=== PATIENT | female | born 1965 | race Caucasian/White ===

== ENCOUNTER 2020-10-04 08:54 | Outpatient (CLI) | payer OTHER, SELFPAY ==
[2020-10-04 09:18] LABS: Basophils Absolute Auto 0.1 K/mm3 (0.0-0.1); Basophils Percent Auto 0.8 % (0.2-1.2); Eosinophils Absolute Auto 0.3 K/mm3 (0-0.3); Eosinophils Percent Auto 3.6 % (0-4.4); Hemoglobin 12.3 g/dL (12.0-15.0); Immature Granulocyte Absolute 0.02 K/mm3 (0.00-0.031); Immature Granulocyte Percent A 0.3 % (0-0.5); Lymphocytes Absolute Auto 2.48 K/mm3 (0.9-3.2); Mean Corpuscular HGB Conc 32.4 g/dl (32-36); Mean Corpuscular Hemoglobin 29.4 pg (26-34); Mean Corpuscular Volume 90.9 fl (80-100); Mean Platelet Volume 11.3 fl (7.4-10.4); Monocytes Absolute Auto 0.6 K/mm3 (0.1-0.6); Monocytes Percent Auto 7.5 % (2.6-8.5); Neutrophils Absolute Auto 4.3 K/mm3 (1.3-6.7); Neutrophils Percent Auto 55.8 % (45.5-73.1); Nucleated Red Blood Cells Perc 0.3 % (0.0-0.2); Platelet Count Result 257 k/mm3 (150-375); Red Blood Count 4.18 M/mm3 (4.2-5.4); Red Cell Distribution Width 13.8 % (11.5-14.5); White Blood Count 7.7 K/mm3 (4.5-10.0)
[2020-10-04 09:25] LABS: Alanine Aminotransferase 29 U/L (4-35); Albumin Level 4.5 g/dL (3.5-5.1); Alkaline Phosphatase 74 U/L (38-126); Anion Gap 13 mmol/L (8-16); Aspartate Amino Transferase 30 U/L (14-36); Bilirubin,Total 0.3 mg/dL (0.2-1.3); Blood Urea Nitrogen 17 mg/dL (7-17); Calcium 9.4 mg/dL (8.4-10.2); Carbon Dioxide 23 mmol/L (22-30); Chloride 107 mmol/L (98-107); Cholesterol 268 mg/dL (0-200); Estimated Glomerular Filt Rate > 60; Glucose 116 mg/dL (65-105); HDL Direct 35 mg/dL; Potassium 4.5 mmol/L (3.4-5.0); Sodium 143 mmol/L (137-145); Triglycerides 459 mg/dL (<150)
[2020-10-04 09:35] LABS: LDL Cholesterol Direct 88 mg/dL
[2020-10-04 10:12] LABS: Vitamin D 25 Hydroxy 20.5 ng/mL
[2020-10-04 11:33] LABS: Hemoglobin A1C 5.8 % (<5.7)
== END 2020-10-04 08:55 | disposition home or self-care (01) ==
LOC: ANHLAB 08:56
PROVIDERS: PCP Internal Medicine; Visit Provider Clinical Nurse Specialist
DX: Z13.220 Encounter for screening for lipoid disorders (principal); E55.9 Vitamin D deficiency, unspecified; E07.9 Disorder of thyroid, unspecified; Z13.228 Encounter for screening for other metabolic disorders; R73.9 Hyperglycemia, unspecified
CPT/HCPCS: 36415; 80053; 80061; 82306; 83036; 84443; 85025

== ENCOUNTER 2020-10-05 08:54 | Outpatient (CLI) | payer OTHER, SELFPAY ==
[2020-10-05 10:31] LABS: Free T4 Free Thyroxine 0.86 ng/mL (0.78-2.19)
[2020-10-08 05:09] LABS: Triiodothyronine T3 Free 2.6 pg/mL (2.3-4.2)
== END 2020-10-05 08:55 | disposition home or self-care (01) ==
PROVIDERS: PCP Internal Medicine; Visit Provider Clinical Nurse Specialist
DX: E07.9 Disorder of thyroid, unspecified (principal)
CPT/HCPCS: 36415; 84439; 84443; 84481

== ENCOUNTER 2021-01-12 01:57 | Day surgery (SDC) | payer OTHER, SELFPAY ==
[2020-12-28 14:44] VITALS: BMI 36.3
[2021-01-12 06:50] VITALS: BP 149/100; PULSE 114; RESP 18; TEMP 36.7; O2SAT 93
[2021-01-12] MEDS: LACTATED RINGERS 1,000 ML 150 ML IV CONT (07:04)
--- NOTE | 2021-01-12 07:48 | WPDANESEPPF ---
Anes - Initial Pre Proc Eval Procedure: Operation Date: 01/12/21 08:00 Proposed Procedures p Screening Colonoscopy - Yrn Hernandez MD Date/Time: 01/12/21 07:48 Surgeon: Yrn Hernandez MD Pre Op Diagnosis: hx of colon polyps Z86.010 Patient Data Age: 55 Gender: F Height: 1.57 m Weight: 91 kg Last Vital Signs Temp 98.1 F 01/12/21 06:50 Pulse 114 H 01/12/21 06:50 Resp 18 01/12/21 06:50 BP 149/100 H 01/12/21 06:50 Pulse Ox 93 01/12/21 06:50 Allergies Allergy/AdvReac Type Severity Reaction Status Date / Time No Known Allergies Allergy Unverified 01/12/21 06:49 Home Medications Medication Instructions Recorded Confirmed Type gabapentin 600 mg tablet 600 mg PO TID 09/26/20 01/12/21 History propranolol 20 mg tablet 20 mg PO DAILY PRN #30 tablet 09/26/20 01/12/21 Rx buspirone 7.5 mg PO TID 12/28/20 01/12/21 History cariprazine [Vraylar] 1.5 mg PO DAILY 12/28/20 01/12/21 History sertraline 150 mg PO DAILY 12/28/20 01/12/21 History levothyroxine 25 mcg tablet 25 mcg PO DAILY #90 tablet 01/08/21 01/12/21 Rx Patient hx anesthesia problems: none Family hx anesthesia problems: none PMFSH Past Medical History Medical History Allergies Anxiety Depression Sleep apnea Thyroid disorder Surgical History Surgical History H/O section 1979 H/O shoulder surgery Left and Right 2018 H/O sinus surgery 2015 Family History Family History Mother Lung cancer COPD (chronic obstructive pulmonary disease) Father Suicide Grandparent Cerebrovascular accident Social History Social History Smoking status: Never smoker Alcohol intake: current Drinks per week: 3 Living arrangements: alone Spiritual care concerns: No Anes - Eval Final PreProcedure Day of Procedure 01/12/21 07:48 Patient weight: obese Heart: regular rate and rhythm Lungs: clear to auscultation Airway: Mallampati scale class II Neurological: alert and oriented Last oral intake: >/= 8 hours ASA classification: III Emergent: no Anesthetic plan: proceed Anesthesia type and monitoring: general GIVS and standard monitoring Informed Consent: The patient's anesthetic plan and its attendant risks and benefits were discussed with the patient/family/POA. Questions were solicited and answers provided to the satisfaction of the patient/family/POA.
--- NOTE | 2021-01-12 08:00 | PM.HPGS ---
History of Present Illness History of Present Illness Consent: Risks, benefits, and alternatives have been discussed and questions answered. Patient agrees to proceed with procedure. Chief complaint: hx of colon polyps Z86.010 Narrative: Kori Kent is a 55 year old female with colon polyp 5 years ago. Review of Systems Constitutional: Constitutional: Denies headache(s) and Denies weakness Eyes: Eyes: Denies blurry vision ENT: Reports Normal hearing present, Denies headache(s) and Denies neck pain Cardiovascular: Cardiovascular: Denies chest pain and Denies dyspnea Respiratory: Respiratory: Denies dyspnea Gastrointestinal: Gastrointestinal: Reports no additional gastrointestinal complaints Genitourinary: Genitourinary: Denies dysuria Musculoskeletal: Musculoskeletal: Denies neck pain Integumentary/Breasts: Skin/Breast: Denies dry skin Neurologic: Reports Normal hearing present, Denies headache(s) and Denies weakness Psychiatric: Psychiatric: Denies anxiety Endocrine: Endocrine: Denies change in body appearance Hematologic/Lymphatic: Hematologic/Lymphatic: Denies easy bleeding Allergic/Immunologic: Allergic/Immunologic: Denies urticaria PMFSH Past Medical History Medical History Allergies Anxiety Depression Sleep apnea Thyroid disorder Surgical History Surgical History H/O section 1979 H/O shoulder surgery Left and Right 2018 H/O sinus surgery 2016 Family History Family History Mother Lung cancer COPD (chronic obstructive pulmonary disease) Father Suicide Grandparent Cerebrovascular accident Social History Social History Smoking status: Never smoker Alcohol intake: current Drinks per week: 3 Living arrangements: alone Spiritual care concerns: No Meds Home Medications and Allergies Home Medications Medication Instructions Recorded Confirmed Type gabapentin 600 mg tablet 600 mg PO TID 09/26/20 01/12/21 History propranolol 20 mg tablet 20 mg PO DAILY PRN #30 tablet 09/26/20 01/12/21 Rx buspirone 7.5 mg PO TID 12/28/20 01/12/21 History cariprazine [Vraylar] 1.5 mg PO DAILY 12/28/20 01/12/21 History sertraline 150 mg PO DAILY 12/28/20 01/12/21 History levothyroxine 25 mcg tablet 25 mcg PO DAILY #90 tablet 01/08/21 01/12/21 Rx Allergies Allergy/AdvReac Type Severity Reaction Status Date / Time No Known Allergies Allergy Unverified 01/12/21 06:49 Vital Signs Vital Signs - 24 hr 01/12/21 06:50 Temperature 98.1 F Pulse Rate 114 H Respiratory Rate 18 Blood Pressure 149/100 H Pulse Oximetry 93 Exam Const: General: comfortable and no acute distress HENMT: General nose exam: Normal nares present Eyes: General: appearance normal, both eyes and all related structures Neck: Neck: no JVD Resp: Auscultation: clear to auscultation bilaterally Cardio: Rate: regular rate Rhythm: regular rhythm GI: Inspection: non-distended GI Palp: Yes Soft to palpation Skin: General skin exam: normal color Neuro: General: gait normal Speech: normal speech Extrem: General: normal to inspection Psych: Mental Status: mental status grossly normal Assessment and Plan Assessment and plan (1) Screening for colon cancer: Code(s): Z12.11 - Encounter for screening for malignant neoplasm of colon Status: Acute Assessment and Plan: colonoscopy
[2021-01-12 08:30] VITALS: BP 125/82; PULSE 106; RESP 21; O2SAT 96
[2021-01-12 08:40] VITALS: BP 126/85; PULSE 98; RESP 16; O2SAT 99
[2021-01-12 08:50] VITALS: BP 135/89; PULSE 93; RESP 26; O2SAT 99
== END 2021-01-12 09:00 | disposition home or self-care (01) ==
PROVIDERS: PCP Internal Medicine; Visit Provider Internal Medicine Gastroenterology
PROC: 0DJD8ZZ Inspection of Lower Intestinal Tract, Via Natural or Artificial Opening Endoscopic (ICD-10-PCS; CPT 45378; principal; 2021-01-12 08:00)
DX: Z12.11 Encounter for screening for malignant neoplasm of colon (principal); D12.0 Benign neoplasm of cecum; D12.2 Benign neoplasm of ascending colon; D12.3 Benign neoplasm of transverse colon; G47.30 Sleep apnea, unspecified; E07.9 Disorder of thyroid, unspecified; F41.8 Other specified anxiety disorders; E66.9 Obesity, unspecified; Z68.36 Body mass index [BMI] 36.0-36.9, adult
CPT/HCPCS: 45380; 45385; 88305; J2704; J7120

== ENCOUNTER 2021-08-13 07:39 | Outpatient (CLI) | payer OTHER, SELFPAY ==
[2021-08-13 09:57] LABS: Free T4 Free Thyroxine 1.01 ng/mL (0.78-2.19)
[2021-08-16 15:01] LABS: Triiodothyronine T3 Free 2.9 pg/mL (2.3-4.2)
== END 2021-08-13 07:40 | disposition home or self-care (01) ==
LOC: ANHLAB 07:41
PROVIDERS: PCP Internal Medicine; Visit Provider Clinical Nurse Specialist
DX: E03.9 Hypothyroidism, unspecified (principal)
CPT/HCPCS: 36415; 84439; 84443; 84481

== ENCOUNTER 2021-11-07 07:28 | Outpatient (CLI) | payer OTHER, SELFPAY ==
[2021-11-07 08:10] LABS: Alanine Aminotransferase 89 U/L (6-35); Albumin Level 4.7 g/dL (3.5-5.1); Alkaline Phosphatase 89 U/L (38-126); Anion Gap 6 mmol/L (8-16); Aspartate Amino Transferase 44 U/L (14-36); Bilirubin,Total 0.1 mg/dL (0.2-1.3); Blood Urea Nitrogen 16 mg/dL (7-17); Carbon Dioxide 27 mmol/L (22-30); Chloride 108 mmol/L (98-107); Cholesterol 234 mg/dL (0-200); Estimated Glomerular Filt Rate > 60; Glucose 132 mg/dL (65-110); HDL Direct 34 mg/dL; Potassium 4.3 mmol/L (3.4-5.0); Sodium 141 mmol/L (137-145); Triglycerides 213 mg/dL (<150)
[2021-11-07 08:22] LABS: LDL Cholesterol Direct 116 mg/dL
[2021-11-07 08:36] LABS: Basophils Absolute Auto 0.1 K/mm3 (0.0-0.1); Basophils Percent Auto 0.8 % (0.2-1.2); Eosinophils Absolute Auto 0.2 K/mm3 (0-0.3); Eosinophils Percent Auto 2.3 % (0-4.4); Hemoglobin 12.9 g/dL (12.0-15.0); Immature Granulocyte Absolute 0.02 K/mm3 (0.00-0.031); Immature Granulocyte Percent A 0.3 % (0-0.5); Lymphocytes Absolute Auto 2.91 K/mm3 (0.9-3.2); Lymphocytes Percent Auto 39.6 % (18.3-44.2); Mean Corpuscular HGB Conc 31.5 g/dl (32-36); Mean Corpuscular Hemoglobin 29.4 pg (26-34); Mean Corpuscular Volume 93.4 fl (80-100); Mean Platelet Volume 12.8 fl (7.4-10.4); Monocytes Absolute Auto 0.4 K/mm3 (0.1-0.6); Monocytes Percent Auto 5.9 % (2.6-8.5); Neutrophils Absolute Auto 3.8 K/mm3 (1.3-6.7); Neutrophils Percent Auto 51.1 % (45.5-73.1); Platelet Count Result 246 k/mm3 (150-375); Red Blood Count 4.39 M/mm3 (4.2-5.4); Red Cell Distribution Width 14.6 % (11.5-14.5); White Blood Count 7.3 K/mm3 (4.5-10.0)
[2021-11-07 09:40] LABS: Vitamin D 25 Hydroxy 40.8 ng/mL
== END 2021-11-07 07:29 | disposition home or self-care (01) ==
LOC: ANHLAB 07:30
PROVIDERS: PCP Internal Medicine; Visit Provider Clinical Nurse Specialist
DX: E55.9 Vitamin D deficiency, unspecified (principal); E03.9 Hypothyroidism, unspecified; E78.1 Pure hyperglyceridemia
CPT/HCPCS: 36415; 80053; 80061; 82306; 84443; 85025

== ENCOUNTER 2022-07-19 08:48 | Emergency (ER) | payer OTHER, SELFPAY ==
--- NOTE | 2022-07-19 08:56 | ED.NAVMDI ---
HPI - Nausea/Vomiting/Diarrhea General Chief complaint: Nausea/Vomiting/Diarrhea Stated complaint: dizziness, nausea, vomit Time Seen by Provider: 07/19/22 08:56 Source: patient Mode of arrival: ambulatory Limitations: no limitations History of Present Illness HPI Narrative: 56 yo F presents with c/o dizziness, ears ringings, nausea for 4 days. Has vomited one time. Was not able to get in to see her PCP. No ear pain or change in hearing. No vision changes. Denies CP/SOB. No recent injuries. Ambulatory with steady gait. Dizziness mild when sitting, worse when ambulatory. All systems reviewed and negative except as noted above. Related Data Home Medications Medication Instructions Recorded Confirmed buspirone 7.5 mg tablet 7.5 mg PO TID 12/28/20 07/19/22 sertraline 100 mg tablet 150 mg PO DAILY 12/28/20 07/19/22 cariprazine 1.5 mg capsule 3 mg PO DAILY 08/14/21 07/19/22 (Vraylar) cholecalciferol (vitamin D3) 50 2,000 unit PO DAILY 08/14/21 07/19/22 mcg (2,000 unit) capsule omega-3 fatty acids 500 mg capsule 500 mg PO DAILY 08/14/21 07/19/22 dextroamphetamine-amphetamine 10 10 mg PO DAILY 07/19/22 07/19/22 mg tablet dextroamphetamine-amphetamine ER 20 mg PO DAILY 07/19/22 07/19/22 20 mg 24hr capsule,extend release rndxgchy-vqlodoh-ejvw-iron 18 1 tablet PO DAILY 07/19/22 07/19/22 mg-FA 400 mcg-vit K 25 mcg tablet (One-A-Day Women's Complete) Allergies Allergy/AdvReac Type Severity Reaction Status Date / Time No Known Allergies Allergy Verified 07/19/22 08:53 Review of Systems Review of Systems: CONSTITUTIONAL: Denies fever, chills, or sweats. EYES: Denies visual changes, redness, or discharge. ENT: Denies rhinorrhea, congestion, sore throat, or otalgia. Reports ears ringing. CARDIOVASCULAR: Denies chest pain, palpitations, or edema. RESPIRATORY: Denies cough or dyspnea. GASTROINTESTINAL: Denies abdominal pain . Reports nausea, vomiting. Denies diarrhea. GENITOURINARY: Denies dysuria or hematuria. SKIN: Denies rash or itching. MUSCULOSKELETAL: Denies back pain, joint pain, or myalgia. NEUROLOGIC: Denies headache, numbness, or weakness. Reports dizziness. PSYCHIATRIC: Denies anxiety or depression. All other systems reviewed are negative, except as documented in HPI. [facility] Past Medical History Medical History (Updated 07/20/22 @ 00:01 by Bryant Busch) Allergies Anxiety Depression Sleep apnea Thyroid disorder Surgical History Surgical History H/O section 1979 H/O shoulder surgery Left and Right 2018 H/O sinus surgery 2015 Family History Family History Mother Lung cancer COPD (chronic obstructive pulmonary disease) Father Suicide Grandparent Cerebrovascular accident Social History Social History (Updated 10/16/21 @ 10:17 by Dora Clark MA) Smoking status: Never smoker Alcohol intake: current Drinks per week: 3 Substance use: never Living arrangements: alone Spiritual care concerns: No Comments At time of signature, agree with nursing past medical, surgical, social and family history. There is no relevant family history pertinent to the presenting complaint. Exam Narrative: GENERAL: This is a well-nourished, well-developed patient, in no apparent distress. HEAD: normocephalic, atraumatic. EYES: PERRL. Sclera clear/white. Vision is grossly intact. EARS: External ears normal, right ear canal impacted with cerumen. Irrigated with warm water. Normal after irrigation. Left ear canal is normal. fluid to bilateral TMs without erythema or perforation. NOSE: External nose normal with no obvious nasal discharge, nares without redness, no rhinorrhea. THROAT: Mucous membranes moist, posterior pharynx clear. NECK: Neck supple, non-tender without lymphadenopathy, masses or thyromegaly. CARDIOVASCULAR: Regular rate and rhythm without murmurs,
[2022-07-19 09:00] VITALS: BP 143/79; PULSE 60; RESP 12; TEMP 36.6; O2SAT 100
== END 2022-07-19 09:35 | disposition home or self-care (01) ==
PROVIDERS: Emergency Provider Nurse Practitioner Family; PCP Internal Medicine
DX: H61.21 Impacted cerumen, right ear (principal); H69.93 Unspecified Eustachian tube disorder, bilateral; F41.9 Anxiety disorder, unspecified; F32.A Depression, unspecified
CPT/HCPCS: 69209; 99213; G0463

== ENCOUNTER 2022-07-26 08:19 | Outpatient (CLI) | payer OTHER, SELFPAY ==
[2022-07-26 09:28] LABS: Basophils Absolute Auto 0.1 K/mm3 (0.0-0.1); Eosinophils Absolute Auto 0.2 K/mm3 (0-0.3); Eosinophils Percent Auto 2.7 % (0-4.4); Hematocrit 42.2 % (37.0-47.0); Hemoglobin 13.5 g/dL (12.0-15.0); Immature Granulocyte Absolute 0.02 K/mm3 (0.00-0.031); Immature Granulocyte Percent A 0.3 % (0-0.5); Immature Platelet Fraction Pct 14.2 % (0.9-11.2); Lymphocytes Absolute Auto 3.34 K/mm3 (0.9-3.2); Lymphocytes Percent Auto 42.8 % (18.3-44.2); Mean Corpuscular Hemoglobin 30.5 pg (26-34); Mean Corpuscular Volume 95.3 fl (80-100); Monocytes Absolute Auto 0.5 K/mm3 (0.1-0.6); Monocytes Percent Auto 6.1 % (2.6-8.5); Neutrophils Absolute Auto 3.7 K/mm3 (1.3-6.7); Neutrophils Percent Auto 47.1 % (45.5-73.1); Red Blood Count 4.43 M/mm3 (4.2-5.4); Red Cell Distribution Width 13.2 % (11.5-14.5); White Blood Count 7.8 K/mm3 (4.5-10.0)
[2022-07-26 09:52] LABS: LDL Cholesterol Direct 101 mg/dL
[2022-07-26 09:54] LABS: Alanine Aminotransferase 32 U/L (6-35); Albumin Level 4.9 g/dL (3.5-5.1); Alkaline Phosphatase 89 U/L (38-126); Anion Gap 12 mmol/L (8-16); Aspartate Amino Transferase 26 U/L (14-36); Bilirubin,Total 0.5 mg/dL (0.2-1.3); Blood Urea Nitrogen 15 mg/dL (7-17); Calcium 9.6 mg/dL (8.4-10.2); Carbon Dioxide 26 mmol/L (22-30); Chloride 106 mmol/L (98-107); Estimated Glomerular Filt Rate > 60; Glucose 98 mg/dL (65-110); HDL Direct 38 mg/dL; Potassium 4.5 mmol/L (3.4-5.0); Sodium 144 mmol/L (137-145)
[2022-07-26 10:39] LABS: Vitamin D 25 Hydroxy 40.1 ng/mL
[2022-07-26 10:59] LABS: Cholesterol 346 mg/dL (0-200); Triglycerides 653 mg/dL (<150)
[2022-07-26 12:13] LABS: Hemoglobin A1C 5.3 % (<5.7)
[2022-07-26 15:37] LABS: Free T4 Free Thyroxine Reflex 0.81 ng/dL (0.78-2.19)
[2022-07-26 16:53] LABS: Total Triiodothyronine (T3) 1.28 NG/ML (0.97-1.69)
== END 2022-07-26 08:20 | disposition home or self-care (01) ==
PROVIDERS: PCP Internal Medicine; Visit Provider Clinical Nurse Specialist
DX: E03.9 Hypothyroidism, unspecified (principal); R73.9 Hyperglycemia, unspecified; E55.9 Vitamin D deficiency, unspecified; E78.1 Pure hyperglyceridemia
CPT/HCPCS: 36415; 80053; 80061; 82306; 83036; 84439; 84443; 84480; 85025; 85055

== ENCOUNTER 2022-08-09 07:40 | Outpatient (CLI) | payer OTHER, SELFPAY ==
--- NOTE | ~2022-08-09 | MR_ITS ---
MRI of the brain Clinical History: Headache, dizziness Technique: Axial and sagittal T1-weighted images were acquired. These were followed by axial T2-weigh choco, diffusion weighted, gradient, and FLAIR images. Following intravenous administration of 16 cc Mu ltiHance gadolinium, T1-weighted fat-sat imaging was performed in the axial and coronal planes. Findings: There is no acute infarct, intracranial hemorrhage, or mass lesion. There are scattered foc al hyperintense FLAIR white matter lesions bilaterally. Ventricles and subarachnoid spaces are unremarkable. Orbits are unremarkable. There is mild left fron marley sinus disease and bilateral ethmoid sinus disease. Remaining paranasal sinuses and mastoid air ce lls are clear. Major intracranial flow voids are intact. Sagittal midline structures are intact. No abnormal postcontrast enhancement identified. IMPRESSION: Probable mild chronic microvascular ischemic change. Correlate for any possibility of demyelinating d isease. Mild sinus disease, as above. Reviewed, dictated and finalized at [facility]. IMPRESSION: Probable mild chronic microvascular ischemic change. Correlate for any possibil ity of demyelinating disease. Mild sinus disease, as above.
== END 2022-08-09 07:41 | disposition home or self-care (01) ==
LOC: ANHIMG 07:41
PROVIDERS: PCP Internal Medicine; Visit Provider Clinical Nurse Specialist
DX: R42 Dizziness and giddiness (principal); R51.9 Headache, unspecified; J32.9 Chronic sinusitis, unspecified
CPT/HCPCS: 70553; A9577

== ENCOUNTER → 2022-10-08 11:20 | Outpatient (CLI) | payer OTHER, SELFPAY ==
--- NOTE | ~2022-10-08 | XR_ITS ---
EXAMINATION: XR chest 2V 10/08/2022 11:46 INDICATION: Cough, shortness of breath and fever PROCEDURE: 2 view chest COMPARISON: No prior studies for comparison. FINDINGS: The lungs are clear. The cardiomediastinal silhouette is within normal limits. There are no pleural effusions. There is no pneumothorax suspected. IMPRESSION: 1: NO ACUTE CARDIOPULMONARY DISEASE. Reviewed, dictated and finalized at location [facility].
== END ==
PROVIDERS: PCP Internal Medicine; Visit Provider Clinical Nurse Specialist
DX: R05.9 Cough, unspecified (principal); R06.02 Shortness of breath; R50.9 Fever, unspecified
CPT/HCPCS: 71046

== ENCOUNTER 2022-12-04 09:26 | Outpatient (CLI) | payer OTHER, SELFPAY ==
[2022-12-04 18:54] LABS: Anion Gap 11 mmol/L (8-16); Blood Urea Nitrogen 16 mg/dL (7-17); Calcium 9.4 mg/dL (8.4-10.2); Carbon Dioxide 24 mmol/L (22-30); Chloride 107 mmol/L (98-107); Cholesterol 280 mg/dL (0-200); Estimated Glomerular Filt Rate > 60; Glucose 106 mg/dL (65-110); HDL Direct 31 mg/dL; Potassium 4.8 mmol/L (3.4-5.0); Sodium 142 mmol/L (137-145); Triglycerides 515 mg/dL (<150)
[2022-12-04 19:00] LABS: Free T4 Free Thyroxine 1.43 ng/mL (0.78-2.19)
[2022-12-04 19:04] LABS: LDL Cholesterol Direct 101 mg/dL
[2022-12-04 19:27] LABS: Thyroid Stimulating Hormone 0.913 uIU/mL (0.465-4.680)
== END 2022-12-04 09:27 | disposition home or self-care (01) ==
PROVIDERS: PCP Internal Medicine; Visit Provider Clinical Nurse Specialist
DX: R73.9 Hyperglycemia, unspecified (principal); E78.1 Pure hyperglyceridemia; E07.9 Disorder of thyroid, unspecified
CPT/HCPCS: 36415; 80048; 80061; 84439; 84443

== ENCOUNTER 2023-01-23 09:23 | Outpatient (CLI) | payer OTHER, SELFPAY ==
--- NOTE | 2023-02-09 19:28 | WPDHOMESLEEP ---
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 She has anxiety, depression, thyroid dysfunction, ADHD, and elevated triglycerides. She had a sleep study in 2011, used CPAP for a while, then stopped using it. She has a family history of sleep disordered in her cousins, aunts and uncles. She occasionally awakens from sleep short of breath. She frequently wakes at night with heartburn, belching or coughing.??She constantly snores, constantly snores loudly enough that others complain. She frequently has trouble sleeping when she has a cold. She rarely wakes up gasping for breath during the night. She rarely has breathing problems at night. She frequently sweats excessively at night. She rarely notices her heart pounding or beating irregularly during the night. She occasionally falls asleep during the day. She occasionally falls asleep involuntarily, never falls asleep while driving. She never experiences loss of muscle tone with strong emotion. She never feels paralyzed on waking or falling asleep. She rarely experiences vivid dreams upon waking or falling asleep. She never feels afraid of going to sleep. She rarely has nightmares. She occasionally recalls her dreams. She frequently has thoughts racing through her mind. She frequently feels sad or depressed. She constantly feels anxiety. She frequently has muscle tension. She rarely notices parts of her body jerking or kicking. She never feels crawling or aching feelings in her legs. She never feels leg pain at night. She never has morning jaw pain, and never grinds her teeth at night. She occasionally feels bothered by pain during the day, never awakened by pain during the night. She frequently wakes up feeling stiff in the morning, frequently wakes feeling sore or achy in the morning. She occasionally awakens with pain in her neck, spine, or joints. She occasioanlly has daytime difficulty due to excessive sleepiness. She has memory problems, headaches, concewntration difficulties and she takes antacids regularly. Normal bedtime is 9:00 p.m., falling asleep within 5-10 minutes. She reports getting 6-7 hours of sleep per night. Her wake time is 5:10 a.m.She wakes 5 times during the night. In general, she does not take naps. Sometimes she feels refreshed after a short nap. She is drowsy for 3 hours after waking. She feels better in the afternoon compared to other times of day. Habits:??Tobacco:never Caffeine:2 cups of tea daily. Alcohol:a couple of glasses of wine every couple of weeks. Recreational substances: none PMFSH Past Medical History Medical History (Updated 02/09/23 @ 20:03 by Nesha Mullins MD) Abnormal brain MRI Allergies Anxiety BPPV (benign paroxysmal positional vertigo) Depression Hyperglycemia Impacted cerumen, right ear Migraine Mild acid reflux Nausea Obstructive sleep apnea Screening for breast cancer Screening for colon cancer Screening for lipoid disorders Screening for metabolic disorder Sleep apnea Thyroid disorder Vitamin D deficiency Wheezing Worsening headaches Surgical History Surgical History H/O section 1979 H/O shoulder surgery Left and Right 2018 H/O sinus surgery 2016 Family History Family History Mother Lung cancer COPD (chronic obstructive pulmonary disease) Father Suicide Grandparent Cerebrovascular accident Social History Social History Smoking status: Never smoker Alcohol intak
[2023-02-09 19:32] VITALS: BMI 36.6
== END 2023-01-24 12:20 | disposition home or self-care (01) ==
LOC: ANHCSM 09:24
PROVIDERS: PCP Internal Medicine; Visit Provider Clinical Nurse Specialist
DX: G47.33 Obstructive sleep apnea (adult) (pediatric) (principal); G47.10 Hypersomnia, unspecified; E66.9 Obesity, unspecified; Z68.36 Body mass index [BMI] 36.0-36.9, adult
CPT/HCPCS: 95800

== ENCOUNTER 2023-08-13 08:44 | Emergency (ER) | payer OTHER, SELFPAY ==
[2023-08-13 08:56] VITALS: BP 103/62; PULSE 109; RESP 20; TEMP 36.4; O2SAT 97
--- NOTE | 2023-08-13 09:14 | ED.ABDPAIN ---
HPI - Abdominal Pain General Chief Complaint: Abdominal Pain Stated Complaint: Abdominal Pain Time Seen by Provider: 08/13/23 08:59 Source: patient Mode of arrival: ambulatory Limitations: no limitations History of Present Illness HPI narrative: Patient presents today complaining of right lower quadrant abdominal pain since yesterday with sweats that started this morning. Denies any additional symptoms to include fever, nausea, vomiting, diarrhea, urinary symptoms. Currently rates her pain 9/10 and took some ibuprofen this morning without relief. Related Data Home Medications Medication Instructions Recorded Confirmed buspirone 7.5 mg tablet 7.5 mg PO TID 12/28/20 08/13/23 sertraline 100 mg tablet 150 mg PO DAILY 12/28/20 08/13/23 cariprazine 1.5 mg capsule 3 mg PO DAILY 08/14/21 08/13/23 (Vraylar) dextroamphetamine-amphetamine 10 10 mg PO DAILY 07/19/22 08/13/23 mg tablet dextroamphetamine-amphetamine ER 20 mg PO DAILY 07/19/22 08/13/23 20 mg 24hr capsule,extend release xrasdddi-jwiwzai-pjlf-iron 18 1 tablet PO DAILY 07/19/22 08/13/23 mg-FA 400 mcg-vit K 25 mcg tablet (One-A-Day Women's Complete(with vit K)) omega-3 fatty acids 500 mg capsule 1,000 mg PO DAILY 07/26/22 08/13/23 Allergies Allergy/AdvReac Type Severity Reaction Status Date / Time No Known Allergies Allergy Verified 08/13/23 08:47 Review of Systems Review of Systems: CONSTITUTIONAL: Denies body aches, fever, chills.+ sweats EYES: Denies visual changes, redness, or discharge. ENT: Denies rhinorrhea, congestion, sore throat, or otalgia. CARDIOVASCULAR: Denies chest pain, palpitations, or edema. RESPIRATORY: Denies cough or dyspnea. GASTROINTESTINAL: Denies nausea, vomiting, or diarrhea.+ abdominal pain GENITOURINARY: Denies dysuria or hematuria. SKIN: Denies rash, itching, or wounds. MUSCULOSKELETAL: Denies back pain, joint pain, or myalgia. NEUROLOGIC: Denies headache, numbness, tingling, or weakness. PSYCH: Denies depression or anxiety. [facility] Past Medical History Medical History Abnormal brain MRI Allergies Anxiety BPPV (benign paroxysmal positional vertigo) Depression Hyperglycemia Impacted cerumen, right ear Migraine Mild acid reflux Nausea Obstructive sleep apnea Screening for breast cancer Screening for colon cancer Screening for lipoid disorders Screening for metabolic disorder Sleep apnea Thyroid disorder Vitamin D deficiency Wheezing Worsening headaches Surgical History Surgical History H/O section 1979 H/O shoulder surgery Left and Right 2018 H/O sinus surgery 2016 Family History Family History Mother Lung cancer COPD (chronic obstructive pulmonary disease) Father Suicide Grandparent Cerebrovascular accident Social History Social History Smoking status: Never smoker Alcohol intake: current Alcohol use details: Rarely Substance use: never Do You Feel Safe in your Home?: Yes Lack of Transportation: No Lack of Food: Never True Current Housing: I Have Housing Concerned About Future Housing: No Difficulty Paying Gas/Electric Bills: No Difficulty Paying for Meds: No Currently Unemployed: No Education: Bachelor's Degree Difficulty w/ Childcare or Family Care: No Living arrangements: alone Spiritual care concerns: No Comments At time of signature, I have reviewed and agree with nursing past medical, surgical, social and family history unless otherwise noted. Please see nursing chart for further information. There is no relevant family history pertinent to the presenting complaint Exam Narrative: GENERAL: Well-appearing, well-nourished, and in no acute distress. +diaphoretic HEAD: Normocephalic, at
== END 2023-08-13 09:15 | disposition short-term general hospital (02) ==
PROVIDERS: Emergency Provider Nurse Practitioner; PCP Internal Medicine
DX: R10.31 Right lower quadrant pain (principal); F41.9 Anxiety disorder, unspecified; F32.A Depression, unspecified; K21.9 Gastro-esophageal reflux disease without esophagitis
CPT/HCPCS: 99212; G0463

== ENCOUNTER 2023-08-13 09:27 | Inpatient (IN) | payer OTHER, SELFPAY ==
[2023-08-13] VITALS (14 sets, daily range): BP systolic 96–129; BP diastolic 42–77; PULSE 93–115; RESP 14–20; TEMP 36.1–37.1; O2SAT 93–99; BMI 39.6
--- NOTE | ~2023-08-13 | CT_ITS ---
EXAMINATION: CT abdomen pelvis w con DATE: 08/13/2023 10:46 INDICATION: Right lower quadrant abdominal pain TECHNIQUE: Computed tomography (CT) of the abdomen and pelvis was performed with 100 mL Omnipaque-350 intravenous contrast. Automated exposure control and iterative reconstruction technique were employe d. The dose-length product was 1218.09 mGy-cm. COMPARISON: None FINDINGS: Mild dependent atelectasis in the bilateral lower lobes. Heart size is normal. No pericardial or pleu ral effusion. Diffuse hepatic steatosis with focal sparing along the gallbladder fossa. Gallbladder, spleen, pancreas, bilateral adrenal glands and kidneys are normal. There is mild dilation of the wall thickening of the appendix distal to a couple likely obstructing calcified appendicoliths at the pro ximal appendix. There is prominent surrounding inflammatory stranding consistent with acute appendici tis. There is a small amount of ascites scattered throughout the pelvis. No abscess or free intraperi toneal gas. Bowels are otherwise unremarkable. Bladder and bilateral adnexa are unremarkable. Thicken ed heterogeneous appearing endometrial complex. Tiny fat-containing umbilical hernia. No pathological ly enlarged abdominal or pelvic lymphadenopathy. Mild lumbar levocurvature. Mild degenerative skeleta l changes in the spine and pelvis. IMPRESSION: 1. Acute appendicitis with small amount of free fluid in the pelvis but no organized abscess or free intraperitoneal gas to more specifically suggest perforation. Dr. Eddy discussed these findings w ith Dr. Gleason at 10:52 AM. 2. Nonspecific thickened and heterogeneous endometrial complex. Recommend follow-up pelvic ultrasound for further evaluation. 3. Diffuse hepatic steatosis. Reviewed, dictated and finalized at location A. IMPRESSION: 1. Acute appendicitis with small amount of free fluid in the pelvis but no orga nized abscess or free intraperitoneal gas to more specifically suggest perforat ion. Dr. Eddy discussed these findings with Dr. Gleason at 10:52 AM. 2. Nonspecific thickened and heterogeneous endometrial complex. Recommend follo w-up pelvic ultrasound for further evaluation. 3. Diffuse hepatic steatosis.
--- NOTE | 2023-08-13 09:40 | ED.ABDPAIN ---
HPI - Abdominal Pain General Chief Complaint: Abdominal Pain Stated Complaint: abd pain Time Seen by Provider: 08/13/23 09:31 History of Present Illness HPI narrative: 57-year-old female presenting to the emergency department for evaluation of right lower quadrant pain. Patient states that symptoms started yesterday and have persisted. Patient reports she woke up in the morning yesterday with an upset stomach and than yesterday evening she began developing more intense pain. Patient describes right lower quadrant pain along with upper abdominal pain with associated nausea. Patient denies any prior history of ovarian cysts or kidney stones. Patient does have a prior history of a hysteroscopy. Patient initially presented to the urgent care and was referred to the emergency department for further workup. Patient reports prior history of and hysteroscopy. Patient denies any other abdominal surgeries. Patient denies any prior history of [place], patient does not take medications for high blood pressure or high cholesterol. Related Data Home Medications Medication Instructions Recorded Confirmed buspirone 7.5 mg tablet 7.5 mg PO TID 12/28/20 08/13/23 sertraline 100 mg tablet 150 mg PO DAILY 12/28/20 08/13/23 cariprazine 1.5 mg capsule 3 mg PO DAILY 08/14/21 08/13/23 (Vraylar) dextroamphetamine-amphetamine 10 10 mg PO DAILY 07/19/22 08/13/23 mg tablet dextroamphetamine-amphetamine ER 20 mg PO DAILY 07/19/22 08/13/23 20 mg 24hr capsule,extend release ervdmemz-zlnywad-pihh-iron 18 1 tablet PO DAILY 07/19/22 08/13/23 mg-FA 400 mcg-vit K 25 mcg tablet (One-A-Day Women's Complete(with vit K)) omega-3 fatty acids 500 mg capsule 1,000 mg PO DAILY 07/26/22 08/13/23 Allergies Allergy/AdvReac Type Severity Reaction Status Date / Time No Known Allergies Allergy Verified 08/13/23 13:59 Review of Systems Review of Systems: All systems reviewed & are unremarkable except as noted in HPI and below PMFSH Past Medical History Medical History Abnormal brain MRI Allergies Anxiety BPPV (benign paroxysmal positional vertigo) Depression Hyperglycemia Impacted cerumen, right ear Migraine Mild acid reflux Nausea Obstructive sleep apnea Screening for breast cancer Screening for colon cancer Screening for lipoid disorders Screening for metabolic disorder Sleep apnea Thyroid disorder Vitamin D deficiency Wheezing Worsening headaches Surgical History Surgical History H/O section 1979 H/O shoulder surgery Left and Right 2018 H/O sinus surgery 2015 History of colonoscopy with polypectomy 2020 History of hysteroscopy Family History Family History Mother Lung cancer COPD (chronic obstructive pulmonary disease) Father Suicide Grandparent Cerebrovascular accident Social History Social History Smoking status: Never smoker Alcohol intake: current Alcohol use details: Rarely Substance use: never Do You Feel Safe in your Home?: Yes Lack of Transportation: No Lack of Food: Never True Current Housing: I Have Housing Concerned About Future Housing: No Difficulty Paying Gas/Electric Bills: No Difficulty Paying for Meds: No Currently Unemployed: No Education: Bachelor's Degree Difficulty w/ Childcare or Family Care: No Living arrangements: alone Spiritual care concerns: No Exam Narrative: APPEARANCE: Uncomfortable appearing HEAD: normocephalic, atraumatic. EYES: PERRLA/EOMI, conjunctivae clear. NOSE: Normal no drainage EARS:TMS clear with good light reflex. THROAT: Pharynx clear, no exudate. NECK: Supple. No adenopathy, no masses. RESPIRATORY: Airway patent, respirations nonlabored. Clear to auscultation bilaterally, no rales, rhonchi, wheezing
[2023-08-13] MEDS: SODIUM CHLORIDE 0.9% IV 1,000 ML 999 ML IV CONT ×2 (09:53→10:57)
[2023-08-13] MEDS: ONDANSETRON INJ 4 MG/2 ML VIAL IV PUSH (09:53)
[2023-08-13] MEDS: HYDROmorphone HCL INJ (*CRX) 1 MG/ML SYR IV PUSH ×2 (09:53→16:09)
[2023-08-13 09:55] LABS: Basophils Absolute Auto 0.1 K/mm3 (0.0-0.1); Basophils Percent Auto 0.4 % (0.2-1.2); Eosinophils Absolute Auto 0.1 K/mm3 (0-0.3); Eosinophils Percent Auto 0.4 % (0-4.4); Hematocrit 46.8 % (37.0-47.0); Hemoglobin 14.7 g/dL (12.0-15.0); Immature Granulocyte Absolute 0.02 K/mm3 (0.00-0.031); Immature Granulocyte Percent A 0.1 % (0-0.5); Lymphocytes Absolute Auto 2.46 K/mm3 (0.9-3.2); Lymphocytes Percent Auto 17.8 % (18.3-44.2); Mean Corpuscular HGB Conc 31.4 g/dl (32-36); Mean Corpuscular Hemoglobin 28.6 pg (26-34); Mean Corpuscular Volume 91.1 fl (80-100); Mean Platelet Volume 11.9 fl (7.4-10.4); Monocytes Absolute Auto 0.4 K/mm3 (0.1-0.6); Neutrophils Absolute Auto 10.8 K/mm3 (1.3-6.7); Neutrophils Percent Auto 78.3 % (45.5-73.1); Platelet Count Result 398 k/mm3 (150-375); Red Blood Count 5.14 M/mm3 (4.2-5.4); White Blood Count 13.8 K/mm3 (4.5-10.0)
[2023-08-13 10:15] LABS: Appearance Urine Cloudy (Clear); Bacteria Urine None Seen /hpf; Bilirubin Urine Negative (Negative); Blood Urine 2+ (Negative); Color Urine Yellow (Yellow); Glucose Urine UA 1+ mg/dL (Negative); Ketones Urine Negative (Negative); Leukocyte Esterase Ur 1+ LEU/UL (Negative); Need Manual Microscopic Reviewed; Nitrate Urine Negative (Negative); Protein Urine 1+ mg/dL (Negative); RBC Urine >100 /hpf (0-2); Specific Grav Ur 1.021 (1.001-1.035); Squamous Epithelial Cell Urine Occasional /hpf (Few); Urobilinogen Urine 0.2 mg/dL (<2.0); WBC Urine 21-50 /hpf (0-3); pH Urine 6.5 (5.0-9.0)
[2023-08-13 10:20] LABS: Add Urine Microscopic? YES
[2023-08-13 10:20] LABS: Alanine Aminotransferase 50 U/L (6-35); Albumin Level 4.8 g/dL (3.5-5.1); Alkaline Phosphatase 104 U/L (38-126); Anion Gap 15 mmol/L (4-12); Aspartate Amino Transferase 31 U/L (14-36); Bilirubin,Total 0.7 mg/dL (0.2-1.3); Blood Urea Nitrogen 15 mg/dL (7-17); Calcium 9.6 mg/dL (8.4-10.2); Carbon Dioxide 20 mmol/L (22-30); Chloride 100 mmol/L (98-107); Estimated CRCL calculation 62 ml/min; Estimated Glomerular Filt Rate > 60; Glucose 211 mg/dL (65-110); Lipase 146 U/L (23-300); Potassium 3.8 mmol/L (3.4-5.0); Sodium 135 mmol/L (137-145)
--- NOTE | 2023-08-13 10:36 | PC.NURSE ---
Pt to CT scan via stretcher at this time, fluids infusing.
[2023-08-13 10:52] LABS: Lactic Acid Reflex 5.1 mmol/L (0.7-2.0)
[2023-08-13] MEDS: PIPERACILLN/TAZ 3.375GM/NS50ML 3.375 GM/50 ML BAG IVPB ×3 (11:06→23:37)
[2023-08-13] MEDS: HYDROmorphone HCL INJ (*CRX) 1 MG/ML SYR 0.5 MG IV PUSH ×2 (11:07→12:47)
[2023-08-13] MEDS: SODIUM CHLORIDE 0.9% IV 1,000 ML 125 ML IV CONT (12:02)
[2023-08-13 13:37] LABS: Reflex Lactic Acid Yes or No Add Lactic
--- NOTE | 2023-08-13 14:36 | PM.HPGS ---
History of Present Illness History of Present Illness Consent: Risks, benefits, and alternatives have been discussed and questions answered. Patient agrees to proceed with procedure. Chief complaint: abd pain Narrative: Kori Kent is a 57 year old female who presented to the ER today with complaints of right lower quadrant abdominal pain x 1 day. She reports waking up yesterday with mild periumbilical and epigastric abdominal discomfort that she related to a stomach ache. Throughout the day, her abdominal pain progressively worsened and began radiating to her lower abdomen. By this morning, her pain had localized to the right lower quadrant and she presented to an urgent care today. They referred her to the ER for further evaluation. Labs showed a white blood cell count of 13,800 and lactic acid 5.1. Vital signs in the ER showed tachycardia with a heart rate as high as 115 and blood pressure stable. She is afebrile. CT scan of the abdomen and pelvis showed acute appendicitis with small amount of free fluid in the pelvis but no organized abscess or free intraperitoneal gas to more specifically suggest perforation. Nonspecific thickened and heterogeneous endometrial complex, and diffuse hepatic steatosis. With further questioning, the patient does report recent hysteroscopy in the past year that showed benign uterine polyps but no other concerning findings. She has been dealing with postmenopausal bleeding. Our service was consulted by the ED physician. Only previous abdominal surgery is a . Review of Systems Review of Systems: All systems reviewed & are unremarkable except as noted in HPI and below Constitutional: Constitutional: Reports no additional constitutional complaints, Denies chills, Denies fatigue and Denies fever(s) Eyes: Eyes: Reports no additional eye complaints ENT: Reports system reviewed and no additional complaints, except as documented and Denies dizziness Cardiovascular: Cardiovascular: Reports no additional cardiovascular complaints, Denies chest pain and Denies leg edema Respiratory: Respiratory: Reports no additional respiratory complaints, Denies cough and Denies dyspnea Gastrointestinal: Gastrointestinal: Reports as per HPI, Reports no additional gastrointestinal complaints, Reports abdominal pain, Denies melena, Denies hematochezia, Denies GI cramping, Denies diarrhea, Denies nausea and Denies vomiting Genitourinary: Genitourinary: Reports no additional female genitourinary complaints and Denies dysuria Musculoskeletal: Musculoskeletal: Reports no additional musculoskeletal complaints, Denies abnormal gait and Denies joint swelling Integumentary/Breasts: Skin/Breast: Reports system reviewed and no additional complaints, except as docu Neurologic: Reports system reviewed and no additional complaints, except as documented, Denies headache(s), Denies focal weakness, Denies numbness and Denies tingling PMFSH Past Medical History Medical History (Updated 08/13/23 @ 15:03 by DONELL Schroeder) Abnormal brain MRI Allergies Anxiety BPPV (benign paroxysmal positional vertigo) Depression Hyperglycemia Impacted cerumen, right ear Migraine Mild acid reflux Nausea Obstructive sleep apnea Screening for breast cancer Screening for colon cancer Screening for lipoid disorders Screening for metabolic disorder Sleep apnea Thyroid disorder Vitamin D deficiency Wheezing Worsening headaches Surgical History Surgical History H/O section 1979 H/O shoulder surgery Left and Right 2017 H/O sinus surgery 2015 History of colonoscopy with polypectomy 2020 History of hysteroscopy Family History Family History Mother Lung cancer COPD (chronic obstructive pulmonary disease) Father Suicide Grandparent Cerebrovascular accident Social History Social History (Reviewed 0
--- NOTE | 2023-08-13 16:24 | WPDHPUPDATE1 ---
History and Physical Update Update Date/Time: 08/13/23 16:24 History and Physical has been reviewed, including an updated exam of the patient. There are NO changes in the patient's condition. Risks, benefits, and alternatives have been discussed and questions answered. Patient agrees to proceed with procedure.
--- NOTE | 2023-08-13 17:35 | WPDANESEPPF ---
Anes - Initial Pre Proc Eval Procedure: Operation Date: 08/13/23 17:00 Proposed Procedures p Laparoscopic Appendectomy, Possible Open - Jose Zapien MD Date/Time: 08/13/23 17:35 Surgeon: Jose Zapien MD Pre Op Diagnosis: abd pain Patient Data Age: 57 Gender: F Height: 1.57 m Weight: 90 kg Last Vital Signs Temp 36.1 C L 08/13/23 16:00 Pulse 109 H 08/13/23 16:00 Resp 18 08/13/23 16:00 BP 98/60 L 08/13/23 16:00 Pulse Ox 94 08/13/23 16:00 O2 Del Method Room Air 08/13/23 16:00 Allergies Allergy/AdvReac Type Severity Reaction Status Date / Time No Known Allergies Allergy Verified 08/13/23 13:59 Home Medications Medication Instructions Recorded Confirmed Type propranolol 20 mg tablet 20 mg PO DAILY PRN hypertension 09/26/20 08/13/23 Rx #30 tabs buspirone 7.5 mg tablet 7.5 mg PO TID 12/28/20 08/13/23 History sertraline 100 mg tablet 150 mg PO DAILY 12/28/20 08/13/23 History cariprazine 1.5 mg capsule 3 mg PO DAILY 08/14/21 08/13/23 History (Vraylar) dextroamphetamine-amphetamine 10 10 mg PO DAILY 07/19/22 08/13/23 History mg tablet dextroamphetamine-amphetamine ER 20 mg PO DAILY 07/19/22 08/13/23 History 20 mg 24hr capsule,extend release fsfunbuo-wetvseg-pqot-iron 18 1 tablet PO DAILY 07/19/22 08/13/23 History mg-FA 400 mcg-vit K 25 mcg tablet (One-A-Day Women's Complete(with vit K)) omega-3 fatty acids 500 mg capsule 1,000 mg PO DAILY 07/26/22 08/13/23 History albuterol sulfate 90 mcg/actuation 1 puff inhalation Q4H PRN 10/08/22 08/13/23 Rx aerosol inhaler shortness of breath or wheezing #8.5 grams fenofibrate micronized 134 mg 134 mg PO DAILY #90 caps 12/12/22 08/13/23 Rx capsule famotidine 20 mg tablet 20 mg PO DAILY #90 tabs 03/12/23 08/13/23 Rx levothyroxine 100 mcg tablet 100 mcg PO DAILY #90 tabs 05/19/23 08/13/23 Rx methylprednisolone 4 mg tablets in See Rx Instructions PO PER PKG DIR 07/29/23 08/13/23 Rx a dose pack (Medrol (Stu)) #21 ea Laboratory Tests 08/13/23 08/13/23 08/13/23 09:48 09:53 10:06 WBC 13.8 H K/mm3 (4.5-10.0) RBC 5.14 M/mm3 (4.2-5.4) Hgb 14.7 g/dL (12.0-15.0) Hct 46.8 % (37.0-47.0) MCV 91.1 fl (80-100) MCH 28.6 pg (26-34) MCHC 31.4 L g/dl (32-36) RDW 14.0 % (11.5-14.5) Plt Count 398 H D k/mm3 (150-375) MPV 11.9 H fl (7.4-10.4) Immature Gran % (Auto) 0.1 % (0-0.5) Neut % (Auto) 78.3 H % (45.5-73.1) Lymph % (Auto) 17.8 L % (18.3-44.2) Starke % (Auto) 3.0 % (2.6-8.5) Eos % (Auto) 0.4 % (0-4.4) Baso % (Auto) 0.4 % (0.2-1.2) Lymph # (Auto) 2.46 K/mm3 (0.9-3.2) Starke # (Auto) 0.4 K/mm3 (0.1-0.6) Eos # (Auto) 0.1 K/mm3 (0-0.3) Baso # (Auto) 0.1 K/mm3 (0.0-0.1) Abs Immat Gran (auto) 0.02 K/mm3 (0.00-0.031) Absolute Neuts (auto) 10.8 H K/mm3 (1.3-6.7) Absolute Nucleated RBC 0.000 K/mm3 (0.0-0.012) Nucleated RBC % 0.0 % (0.0-0.2) Sodium 135 L mmol/L (137-145) Potassium 3.8 mmol/L (3.4-5.0) Chloride 100 mmol/L (98-107) Carbon Dioxide 20 L mmol/L (22-30) Anion Gap 15 H mmol/L (4-12) BUN 15 mg/dL (7-17) Creatinine 0.90 mg/dL (0.7-1.0) Estim Creat Clear Calc 62 ml/min Estimated GFR > 60 (59 - ) Glucose 211 H mg/dL (65-110) Lactic Acid Calcium 9.6 mg/dL (8.4-10.2) Total Bilirubin 0.7 mg/dL (0.2-1.3) AST 31 U/L (14-36) ALT 50 H U/L (6-35) Alkaline Phosphatase 104 U/L (38-126) Total Protein 8.0 g/dL (6.3-8.2) Albumin 4.8 g/dL (3.5-5.1) Lipase 146 U/L (23-300) Urine Color Yellow (Yellow) Urine Appearance
[2023-08-13] MEDS: LACTATED RINGERS 1,000 ML 30 ML IV CONT ×2 (17:59→20:27)
[2023-08-13] MEDS: BUPivacaine HCL 0.5% PF 30 ML VIAL INFILTRATE (18:50)
[2023-08-13] MEDS: LIDO 1%/EPINEPHRINE 1:100,000 20 ML VIAL 30 ML INFILTRATE (18:50)
--- NOTE | 2023-08-13 21:45 | ADMGEN ---
This patient, Kori Kent, was admitted to 2 Medical Room 261-01. Patient/family oriented to hospital policies and general routines including ID bracelet, bed and alarms, visiting hours, pain management, procedures, bathroom and other care routines, personal items, smoking policy, room service/diet, and visiting hours. Information on how to activate the Rapid Response Team has been discussed. Patient/Family are encouraged to report perceived risks to care and to ask questions if they do not understand what they are told or what they should do.
[2023-08-13] MEDS: IBUPROFEN IV 800 MG/200 ML 800 MG/200 ML BAG 400 MG IVPB (21:51)
[2023-08-13] MEDS: LACTATED RINGERS 1,000 ML 130 ML IV CONT (21:58)
[2023-08-13] MEDS: PANTOPRAZOLE SODIUM IV 80 MG in SODIUM CHLORIDE 0.9% IV 500 ML 50 MG IV CONT (22:12)
--- NOTE | 2023-08-13 22:29 | PM.OP ---
Procedure Note - Brief Procedure Note - Brief Date of procedure: 08/13/23 abd pain, acute appendicitis Post-op diagnosis: Other (Acute appendicitis with perforated cecum) Procedure performed: Laparoscopic partial cecectomy and appendectomy Surgeon: Jose Zapien MD Anesthesia: GETA Implants: None Estimated blood loss (mL): 50 Drains: Yes (15 Fr TAMAR Drain RLQ) Packing: No Pathology: Yes (Appendix and portion of cecum to pathology) Complications: No immediate complications Condition: Stable Disposition: PACU
[2023-08-13] MEDS: metroNIDAZOLE 500 MG/ISO 100ML 500 MG/100 ML BAG 100 MG IVPB (22:39)
[2023-08-13] MEDS: HYDROcodone/acetaminophen (*CRX) 5-325 MG TABLET 1 TAB PO (23:41)
[2023-08-14] VITALS (7 sets, daily range): BP systolic 99–140; BP diastolic 56–69; PULSE 89–100; RESP 16–18; TEMP 35.9–36.9; O2SAT 93–96
[2023-08-14] MEDS: oxyCODONE HCL (*CRX) 5 MG TAB IR PO ×5 (03:18→23:31)
[2023-08-14] MEDS: PIPERACILLN/TAZ 3.375GM/NS50ML 3.375 GM/50 ML BAG IVPB ×4 (05:07→23:32)
[2023-08-14] MEDS: IBUPROFEN IV 800 MG/200 ML 800 MG/200 ML BAG 400 MG IVPB ×3 (05:08→20:38)
[2023-08-14] MEDS: LACTATED RINGERS 1,000 ML 130 ML IV CONT ×3 (05:12→17:40)
[2023-08-14] MEDS: metroNIDAZOLE 500 MG/ISO 100ML 500 MG/100 ML BAG 100 MG IVPB ×3 (05:39→21:57)
[2023-08-14 05:47] LABS: Basophils Absolute Auto 0.1 K/mm3 (0.0-0.1); Basophils Percent Auto 0.4 % (0.2-1.2); Eosinophils Absolute Auto 0.1 K/mm3 (0-0.3); Eosinophils Percent Auto 0.9 % (0-4.4); Hematocrit 35.3 % (37.0-47.0); Immature Granulocyte Absolute 0.04 K/mm3 (0.00-0.031); Immature Granulocyte Percent A 0.3 % (0-0.5); Lymphocytes Absolute Auto 1.06 K/mm3 (0.9-3.2); Lymphocytes Percent Auto 7.3 % (18.3-44.2); Mean Corpuscular HGB Conc 31.2 g/dl (32-36); Mean Corpuscular Hemoglobin 28.9 pg (26-34); Mean Corpuscular Volume 92.7 fl (80-100); Monocytes Absolute Auto 0.8 K/mm3 (0.1-0.6); Monocytes Percent Auto 5.2 % (2.6-8.5); Neutrophils Absolute Auto 12.4 K/mm3 (1.3-6.7); Neutrophils Percent Auto 85.9 % (45.5-73.1); Platelet Count Result 213 k/mm3 (150-375); Red Blood Count 3.81 M/mm3 (4.2-5.4); Red Cell Distribution Width 14.6 % (11.5-14.5); White Blood Count 14.4 K/mm3 (4.5-10.0)
[2023-08-14 06:00] LABS: Alanine Aminotransferase 34 U/L (6-35); Albumin Level 3.5 g/dL (3.5-5.1); Alkaline Phosphatase 60 U/L (38-126); Anion Gap 9 mmol/L (4-12); Aspartate Amino Transferase 23 U/L (14-36); Bilirubin,Total 0.6 mg/dL (0.2-1.3); Blood Urea Nitrogen 17 mg/dL (7-17); Calcium 8.2 mg/dL (8.4-10.2); Carbon Dioxide 19 mmol/L (22-30); Chloride 107 mmol/L (98-107); Estimated CRCL calculation 59 ml/min; Estimated Glomerular Filt Rate 57; Glucose 211 mg/dL (65-110); Potassium 3.9 mmol/L (3.4-5.0); Sodium 135 mmol/L (137-145)
--- NOTE | 2023-08-14 08:36 | WPDANESPN ---
Anes - Prog Note Post-Op Date/Time: 08/14/23 08:36 Cardiovascular status: normal Respiratory status: normal Airway patency: baseline Mental status: baseline Post-Op hydration status: normal Vital Signs: Last Vital Signs Temp 35.9 C L 08/14/23 08:07 Pulse 89 08/14/23 08:07 Resp 16 08/14/23 08:07 BP 106/59 L 08/14/23 08:07 Pulse Ox 96 08/14/23 08:07 O2 Del Method Room Air 08/14/23 07:57 O2 Flow Rate 6 08/13/23 20:55 Pain Score (VAS): 07/05 I/O: Intake & Output 08/13/23 08/14/23 08/14/23 23:59 07:59 15:59 Intake Total 550 1340.3 Output Total 110 90 Balance 440 1250.3 Laboratory Tests 08/14/23 05:02 08/14/23 05:02 08/13/23 08/13/23 08/13/23 09:48 09:53 10:06 WBC 13.8 H RBC 5.14 Hgb 14.7 Hct 46.8 MCV 91.1 MCH 28.6 MCHC 31.4 L RDW 14.0 Plt Count 398 H D MPV 11.9 H Immature Gran % (Auto) 0.1 Neut % (Auto) 78.3 H Lymph % (Auto) 17.8 L Gonzales % (Auto) 3.0 Eos % (Auto) 0.4 Baso % (Auto) 0.4 Lymph # (Auto) 2.46 Gonzales # (Auto) 0.4 Eos # (Auto) 0.1 Baso # (Auto) 0.1 Abs Immat Gran (auto) 0.02 Absolute Neuts (auto) 10.8 H Absolute Nucleated RBC 0.000 Nucleated RBC % 0.0 Sodium 135 L Potassium 3.8 Chloride 100 Carbon Dioxide 20 L Anion Gap 15 H BUN 15 Creatinine 0.90 Estim Creat Clear Calc 62 Estimated GFR > 60 Glucose 211 H Lactic Acid Calcium 9.6 Total Bilirubin 0.7 AST 31 ALT 50 H Alkaline Phosphatase 104 Total Protein 8.0 Albumin 4.8 Lipase 146 Urine Color Yellow Urine Appearance Cloudy H Urine pH 6.5 Ur Specific [place] 1.021 Urine Protein 1+ H Urine Glucose (UA) 1+ H Urine Ketones Negative Ur Blood (Man) 2+ H Urine Nitrate Negative Urine Bilirubin Negative Urine Urobilinogen 0.2 Add Ur Microanalysis Reviewed Leukocyte Esterase Rfl 1+ H Urine RBC >100 H Urine WBC 21-50 H Ur Squamous Epith Cells Occasional Urine Bacteria None seen Urine Casts 6-10 08/13/23 08/13/23 08/14/23 10:34 22:04 05:02 WBC 14.4 H RBC 3.81 L Hgb 11.0 L D Hct 35.3 L MCV 92.7 MCH 28.9 MCHC 31.2 L RDW 14.6 H Plt Count 213 MPV 12.0 H Immature Gran % (Auto) 0.3 Neut % (Auto) 85.9 H Lymph % (Auto) 7.3 L Gonzales % (Auto) 5.2 Eos % (Auto) 0.9 Baso % (Auto) 0.4 Lymph # (Auto) 1.06 Gonzales # (Auto) 0.8 H Eos # (Auto) 0.1 Baso # (Auto) 0.1 Abs Immat Gran (auto) 0.04 H Absolute Neuts (auto) 12.4 H Absolute Nucleated RBC 0.000 Nucleated RBC % 0.0 Sodium 135 L Potassium 3.9 Chloride 107 Carbon Dioxide 19 L Anion Gap 9 BUN 17 Creatinine 1.00 Estim Creat Clear Calc 59 Estimated GFR 57 L Glucose 211 H Lactic Acid 5.1 H* 4.0 H Calcium 8.2 L Total Bilirubin 0.6 AST 23 ALT 34 Alkaline Phosphatase 60 Total Protein 6.0 L Albumin 3.5 Lipase Urine Color Urine Appearance Urine pH Ur Specific [place] Urine Protein Urine Glucose (UA) Urine Ketones Ur Blood (Man) Urine Nitrate Urine Bilirubin Urine Urobilinogen Add Ur Microanalysis Leukocyte Esterase Rfl Urine RBC Urine WBC Ur Squamous Epith Cells Urine Bacteria Urine Casts Post-procedural complaints: none Patient Feedback: Patient satisfied with anesthetic care.
[2023-08-14] MEDS: PANTOPRAZOLE SODIUM IV 80 MG in SODIUM CHLORIDE 0.9% IV 500 ML 50 MG IV CONT ×2 (09:01→18:50)
[2023-08-14] MEDS: ENOXAPARIN 40 MG/0.4 ML SYRINGE SUB-Q (09:03)
--- NOTE | 2023-08-14 10:26 | PM.PNGS ---
Progress Note: A&P Assessment and Plan (1) Acute appendicitis: Code(s): K35.80 - Unspecified acute appendicitis Status: Acute Assessment and Plan: Postop day 1 laparoscopic appendectomy and partial cecectomy for perforated appendicitis. Continue IV antibiotics. Continue clear liquids. Monitor TAMAR drain output. Increase activity, walk in halls. (2) Sepsis: Qualifiers: Sepsis type: sepsis due to unspecified organism Sepsis acute organ dysfunction status: without acute organ dysfunction Qualified Code(s): A41.9 - Sepsis, unspecified organism Code(s): A41.9 - Sepsis, unspecified organism Status: Acute Assessment and Plan: Secondary to acute perforated appendicitis, s/p laparoscopic appendectomy for soruce control. Continue IV antibiotics, blood cultures pending. Plan I have discussed the patient's case and plan of care with Dr. Zapien. Subjective Subjective Date/Time Seen: 08/14/23 10:26 Post Op day: 1 (Laparoscopic partial cecectomy and appendectomy) Patient reports: tolerating liquids well, no flatus, no bowel movement and afebrile Interval history: Patient doing well today. Reports pain is controlled with pain pills this morning. No nausea or vomiting. Review of Systems Review of Systems: All systems reviewed & are unremarkable except as noted in HPI and below Exam Const: General: comfortable and no acute distress Resp: Effort & Inspection: normal respiratory effort Auscultation: clear to auscultation bilaterally Cardio: Rate: regular rate Rhythm: regular rhythm GI: Inspection: non-distended, incision (incisions dry and intact) and other (TAMAR drain with cloudy serosanguineous drainage) GI Palp: Yes Soft to palpation, Yes Tenderness to palpation present (GI) (incisional) and No Guarding due to palpation present (GI) Auscultation: normal bowel sounds Neuro: General: moves all extremities and no focal motor deficits Extrem: General: no calf tenderness and no edema Psych: Mental Status: mental status grossly normal Insight: Good insight present (Psych) Objective Data Vital Signs Vital Signs: Vital Signs - 24 hr 08/13/23 11:00 08/13/23 11:27 08/13/23 12:20 Temperature 98.6 F Pulse Rate 112 H 115 H 110 H Respiratory Rate 18 18 15 Blood Pressure 122/63 112/69 105/70 Pulse Oximetry 95 93 99 Oxygen Delivery Oxygen Flow Rate 08/13/23 12:48 08/13/23 16:00 08/13/23 20:27 Temperature 97 F L 97.6 F Pulse Rate 108 H 109 H 105 H Respiratory Rate 16 18 14 Blood Pressure 96/69 L 98/60 L 114/42 L Pulse Oximetry 95 94 99 Oxygen Delivery Room Air Simple Face Mask Oxygen Flow Rate 6 08/13/23 20:55 08/13/23 21:10 08/13/23 21:25 Temperature 97.5 F L Pulse Rate 108 H 112 H 108 H Respiratory Rate 16 16 16 Blood Pressure 115/69 114/77 110/73 Pulse Oximetry 97 93 95 Oxygen Delivery Simple Face Mask Room Air Room Air Oxygen Flow Rate 6 08/13/23 20:40 08/13/23 21:05 08/13/23 21:48 Temperature 97.9 F Pulse Rate 108 H 95 Respiratory Rate 16 18 Blood Pressure 114/67 120/61 Pulse Oximetry 97 95 Oxygen Delivery Simple Face Mask Room Air Oxygen Flow Rate 6 08/13/23 22:31 08/13/23 23:40 08/13/23 21:05 Temperature 98.7 F Pulse Rate 100 Respiratory Rate 16 Blood Pressure 98/61 L Pulse Oximetry 96 96 Oxygen Delivery Room Air Room Air Oxygen Flow Rate 08/14/23 04:25 08/14/23 05:50 08/14/23 07:57 Temperature 98.5 F Pulse Rate 99 Respiratory Rate 16 Blood Pressure 99/56 L Pulse Oximetry 95 95 95 Oxygen Delivery Room Air Room Air Oxygen Flow Rate 08/14/23 08:07 Temperature 96.7 F L Pulse Rate 89 Respiratory Rate 16 Blood Pressure 106/59 L Pulse Oximetry 96 Oxygen Delivery Oxygen Flow Rate Intake/Output Intake/Output: Intake & Output 08/11/23 08/12/23 08/13/23 08/14/23 23:59 23:59 23:59 23:59 Intake Total 2600 2320.3 Output Total 110 90 Balance 2490 2230.3 Meds/Res
--- NOTE | 2023-08-14 12:05 | W.PM.PROC2 ---
Procedure Note - Detailed Date of Procedure 08/13/23 Pre-op Diagnosis Acute appendicitis Post-op Diagnosis Other ( Acute appendicitis with perforation of the cecum at the base of the appendix) Procedure Performed Laparoscopic partial cecectomy with appendectomy Surgeon Jose Zapien MD Anesthesia General Indications patient is a 57-year-old female who presented to the emergency with a 1 day history of worsening right lower quadrant abdominal pain. She had a mildly elevated white blood cell count a CT scan abdomen pelvis showed a dilated inflamed appendix which on CT scan showed no evidence of perforation or periappendiceal abscess. There was surrounding inflammatory changes. Findings The patient had a severely inflamed acute appendicitis with perforation of the cecum just at the base of the appendix. Hard appendicoliths were noted at the opening to the appendix and the cecum. The cecum was inflamed but viable. There was purulent fluid in the pelvis but no organized abscess. The loops of small bowel in the right lower quadrant had a fibropurulent rind and serosal inflammation and there was peritoneal inflammation the right lower quadrant. Description of Procedure After informed consent was obtained patient brought to the operating room she was placed supine position and general endotracheal anesthesia was administered. A Larson catheter was placed decompress the bladder and the abdomen was then prepped and draped in usual sterile fashion. A time-out was then performed correctly identifying the patient as well as the procedure to be performed. She was already on scheduled IV antibiotics. I began the procedure by placing a 5mm Optiview port in left upper quadrant with a direct optical insertion. Once inside the abdomen insufflated to adequate pneumoperitoneum of 15mmHg of CO2. I could see there was inflammatory process the right lower quadrant the abdomen. Loops of small bowel in the right lower quadrant or flamed with serosal inflammation and a fibropurulent rind to these loops of small bowel. I then placed additional trocar ports included a 12mm periumbilical trocar port, a 10mm right upper quadrant trocar port, a 5mm suprapubic trocar port, and a 5mm right lower quadrant trocar port. Working through all these ports I bluntly the loops of small bowel right lower quadrant. There were no intra loop abscesses. I was eventually able to find the appendix in the right lower quadrant lateral to the cecum. Upon finding the appendix it was clear that the appendix had perforated. There was about a 1cm defect in the cecum just at the base of the appendix. Extruding out of the defect was a couple of appendicoliths which appeared to be small hard pieces of stool. Working through all the ports I was eventually able to separate the appendix from the terminal ileum. I then proceeded to mobilize the cecum by dividing the lateral peritoneal attachments and the cecum from the retroperitoneum. Once I was able to do this then I could see that I could perform a partial cecectomy and resect the area of the perforation and resect the appendix. I then used a 45mm Endo-ANGELA stapler with a blue load to divide the cecum just distal to the area perforation. Multiple firings of the Endo-ANGELA stapler were used to perform the partial cecectomy. Once the resection was done, the portion of the cecum and the appendix was placed in an Endo-Catch bag and brought out through the periumbilical trocar port site. it was then passed off table sent to pathology. I then irrigated and the right lower quadrant of the abdomen and the staple lines. The staple lines were intact without evidence of further fecal spillage. Hemostasis was good. It appeared the staple line did not encroach upon the ileocecal valve or the terminal ileum. I then irrigated out the pelvis was about 1L of sterile saline solution. The loops of small bowel with serosal inflammation did not a
--- NOTE | 2023-08-14 13:52 | PC.NURSE ---
On 08/14/23, the student, [Roseline Romero], provided care and completed [facility] documentation on this patient. I have reviewed the student's documentation and agree with the findings.
[2023-08-15] MEDS: LACTATED RINGERS 1,000 ML 130 ML IV CONT (03:25)
[2023-08-15] MEDS: oxyCODONE HCL (*CRX) 5 MG TAB IR PO (03:35)
[2023-08-15 04:47] VITALS: BP 136/79; PULSE 105; RESP 18; TEMP 36.5; O2SAT 96
[2023-08-15 05:18] LABS: Basophils Percent Auto 0.3 % (0.2-1.2); Eosinophils Absolute Auto 0.2 K/mm3 (0-0.3); Eosinophils Percent Auto 2.1 % (0-4.4); Hematocrit 33.4 % (37.0-47.0); Hemoglobin 10.2 g/dL (12.0-15.0); Immature Granulocyte Absolute 0.08 K/mm3 (0.00-0.031); Immature Granulocyte Percent A 0.7 % (0-0.5); Lymphocytes Absolute Auto 1.13 K/mm3 (0.9-3.2); Lymphocytes Percent Auto 9.7 % (18.3-44.2); Mean Corpuscular HGB Conc 30.5 g/dl (32-36); Mean Corpuscular Hemoglobin 28.3 pg (26-34); Mean Corpuscular Volume 92.5 fl (80-100); Mean Platelet Volume 12.2 fl (7.4-10.4); Monocytes Absolute Auto 0.5 K/mm3 (0.1-0.6); Monocytes Percent Auto 4.4 % (2.6-8.5); Neutrophils Absolute Auto 9.7 K/mm3 (1.3-6.7); Neutrophils Percent Auto 82.8 % (45.5-73.1); Platelet Count Result 212 k/mm3 (150-375); Red Blood Count 3.61 M/mm3 (4.2-5.4); Red Cell Distribution Width 14.9 % (11.5-14.5); White Blood Count 11.7 K/mm3 (4.5-10.0)
[2023-08-15] MEDS: IBUPROFEN IV 800 MG/200 ML 800 MG/200 ML BAG 400 MG IVPB ×3 (05:21→21:31)
[2023-08-15] MEDS: PANTOPRAZOLE SODIUM IV 80 MG in SODIUM CHLORIDE 0.9% IV 500 ML 50 MG IV CONT (05:21)
[2023-08-15 05:43] LABS: Anion Gap 6 mmol/L (4-12); Blood Urea Nitrogen 11 mg/dL (7-17); Calcium 8.7 mg/dL (8.4-10.2); Carbon Dioxide 24 mmol/L (22-30); Chloride 109 mmol/L (98-107); Estimated CRCL calculation 83 ml/min; Estimated Glomerular Filt Rate > 60; Glucose 140 mg/dL (65-110); Potassium 3.4 mmol/L (3.4-5.0); Sodium 139 mmol/L (137-145)
[2023-08-15] MEDS: PIPERACILLN/TAZ 3.375GM/NS50ML 3.375 GM/50 ML BAG IVPB ×3 (05:56→18:03)
[2023-08-15] MEDS: metroNIDAZOLE 500 MG/ISO 100ML 500 MG/100 ML BAG 100 MG IVPB ×3 (05:58→22:32)
[2023-08-15] MEDS: ENOXAPARIN 40 MG/0.4 ML SYRINGE SUB-Q (10:11)
[2023-08-15] MEDS: polyethylene glycoL 3350 17 GM POWD.PACK PO (10:11)
--- NOTE | 2023-08-15 10:14 | WPDPN ---
Progress Note: A&P Assessment and Plan (1) Acute appendicitis: Code(s): K35.80 - Unspecified acute appendicitis Status: Acute Assessment and Plan: Patient continues to improve on IV antibiotics. Continue the IV antibiotics for now. White blood cell count continues to decrease. She has a mild ileus due to the peritonitis from the perforated appendicitis. That seems to be improving as well. Will advance her to full liquids today. Continue the ibuprofen for pain and to decrease her use of narcotics. Likely be on IV antibiotics least another 24hours and then switch to oral antibiotics. Hopefully home when her ileus has resolved and she is tolerating a regular diet. Subjective Date/time seen: 08/15/23 10:14 Interval history: Patient is doing fairly well today. Passing a little bit of flatus but no bowel movement yet. No nausea. Tolerating clear liquids. White blood cell count is down to 11,700. No fever or tachycardia. Output from TAMAR drain is cloudy today. No feculent material. Exam GI: Other: Abdomen is soft and minimally distended. Port site incisions are healing well. TAMAR output is less cloudy non feculent. Objective Data Vital Signs Vital Signs: Vital Signs - 24 hr 08/14/23 11:46 08/14/23 17:05 08/14/23 20:22 Temperature 36.9 C 36.0 C L 36.6 C Pulse Rate 100 100 95 Respiratory Rate 17 16 18 Blood Pressure 120/67 121/69 140/68 Pulse Oximetry 96 95 93 Oxygen Delivery 08/14/23 20:00 08/15/23 04:47 Temperature 36.5 C Pulse Rate 105 H Respiratory Rate 18 Blood Pressure 136/79 Pulse Oximetry 96 Oxygen Delivery Room Air Intake/Output Intake/Output: Intake & Output 08/12/23 08/13/23 08/14/23 08/15/23 23:59 23:59 23:59 23:59 Intake Total 2600 6531.8 2460 Output Total 052 669 0650 Balance 2490 5681.8 830 Meds/Results Medications: Active Medications Generic Name Dose Route Start Last Admin Trade Name Freq PRN Reason Stop Dose Admin Acetaminophen 1,000 mg 08/13/23 21:32 Acetaminophen 500 Mg Tablet PO Q6H PRN Mild Pain (1-3) or Fever Hydrocodone Bitart/Acetaminophen 1 tab 08/13/23 21:32 08/13/23 23:41 Hydrocodone/Acetaminophen (*Crx) 5-325 Mg Tablet PO 1 tab Q4H PRN Administration Pain Rated 4-6 Enoxaparin Sodium 40 mg 08/14/23 09:00 08/15/23 10:11 Enoxaparin 40 Mg/0.4 Ml Syringe SUB-Q 40 mg DAILY ALEXANDRA Administration Hydromorphone HCl 1 mg 08/13/23 21:32 Hydromorphone Hcl Inj (*Crx) 1 Mg/Ml Syr IV PUSH Q3H PRN Pain Rated 7-10 Piperacillin/Tazobactam/Dextrose 3.375 gm in 50 mls @ 100 mls/hr 08/13/23 18:00 08/15/23 06:26 Zosyn 3.375 Gm/Ns 50 Ml IVPB Infused Q6HR ALEXANDRA Infusion Lactated Ringer's 1,000 mls @ 130 mls/hr 08/13/23 20:35 08/15/23 03:25 Lr - Lactated Ringers Iv IV CONT 130 mls/hr .Q7H42M ALEXANDRA Administration Metronidazole 500 mg in 100 mls @ 100 mls/hr 08/13/23 22:00 08/15/23 06:53 Flagyl 500 Mg/Iso Soln 100 Ml IVPB Infused Q8H ALEXANDRA Infusion Ibuprofen 800 mg in 200 mls @ 400 mls/hr 08/13/23 22:00 08/15/23 05:50 Caldolor 800 Mg/200 Ml IVPB Infused Q8H ALEXANDRA Infusion Pantoprazole Sodium 80 mg/ 500 mls @ 50 mls/hr 08/13/23 22:00 08/15/23 05:21 Sodium Chloride IV CONT 50 mls/hr .Q10H ALEXANDRA Administration Ondansetron HCl 4 mg 08/13/23 21:32 Ondansetron Inj 4 Mg/2 Ml Vial IV PUSH Q6H PRN Nausea And Vomiting Oxycodone HCl 5 mg 08/13/23 21:32 08/15/23 03:35 Oxycodone Hcl (*Crx) 5 Mg Tab Ir PO 5 mg Q4H PRN Administration Pain Rated 7-10 Polyethylene Glycol 17 gm 08/15/23 09:00 08/15/23 10:11 Polyethylene Glycol 3350 17 Gm Powd.Pack PO 17 gm QAM ALEXANDRA Administration Radiology Results: ITS Impressions Abdomen/Pelvis CT 08/13/23 10:48 IMPRESSION: 1. Acute appendicitis with small amount of free fluid in the pelvis but no organized abscess or free intraperitoneal gas to more specifically suggest p
[2023-08-15] MEDS: HYDROcodone/acetaminophen (*CRX) 5-325 MG TABLET 1 TAB PO ×2 (10:23→14:52)
[2023-08-15 14:08] VITALS: BP 126/78; PULSE 98; RESP 17; TEMP 36.9; O2SAT 97
[2023-08-15] MEDS: LACTATED RINGERS 1,000 ML 90 ML IV CONT (14:10)
[2023-08-15 22:00] VITALS: BP 135/70; PULSE 93; RESP 16; TEMP 36.6; O2SAT 96
[2023-08-16] MEDS: PIPERACILLN/TAZ 3.375GM/NS50ML 3.375 GM/50 ML BAG IVPB ×4 (00:26→18:15)
[2023-08-16 04:38] LABS: Basophils Absolute Auto 0.1 K/mm3 (0.0-0.1); Basophils Percent Auto 0.4 % (0.2-1.2); Eosinophils Absolute Auto 0.4 K/mm3 (0-0.3); Eosinophils Percent Auto 3.3 % (0-4.4); Hematocrit 33.6 % (37.0-47.0); Hemoglobin 10.4 g/dL (12.0-15.0); Immature Granulocyte Percent A 0.9 % (0-0.5); Lymphocytes Absolute Auto 1.31 K/mm3 (0.9-3.2); Lymphocytes Percent Auto 11.7 % (18.3-44.2); Mean Corpuscular Hemoglobin 28.3 pg (26-34); Mean Corpuscular Volume 91.6 fl (80-100); Mean Platelet Volume 11.8 fl (7.4-10.4); Monocytes Absolute Auto 0.6 K/mm3 (0.1-0.6); Monocytes Percent Auto 5.6 % (2.6-8.5); Neutrophils Absolute Auto 8.8 K/mm3 (1.3-6.7); Neutrophils Percent Auto 78.1 % (45.5-73.1); Platelet Count Result 249 k/mm3 (150-375); Red Blood Count 3.67 M/mm3 (4.2-5.4); Red Cell Distribution Width 15.2 % (11.5-14.5); White Blood Count 11.2 K/mm3 (4.5-10.0)
[2023-08-16 04:45] LABS: Anion Gap 6 mmol/L (4-12); Blood Urea Nitrogen 7 mg/dL (7-17); Calcium 9.1 mg/dL (8.4-10.2); Carbon Dioxide 26 mmol/L (22-30); Chloride 110 mmol/L (98-107); Estimated CRCL calculation 95 ml/min; Estimated Glomerular Filt Rate > 60; Glucose 157 mg/dL (65-110); Potassium 3.4 mmol/L (3.4-5.0); Sodium 142 mmol/L (137-145)
[2023-08-16] MEDS: LACTATED RINGERS 1,000 ML 90 ML IV CONT (05:03)
[2023-08-16] MEDS: IBUPROFEN IV 800 MG/200 ML 800 MG/200 ML BAG 400 MG IVPB ×3 (05:03→21:35)
[2023-08-16 06:00] VITALS: BP 155/83; PULSE 100; RESP 16; TEMP 36.3; O2SAT 97
[2023-08-16] MEDS: metroNIDAZOLE 500 MG/ISO 100ML 500 MG/100 ML BAG 100 MG IVPB ×3 (06:19→22:40)
[2023-08-16] MEDS: PANTOPRAZOLE 40 MG TABLET PO (10:07)
[2023-08-16] MEDS: ENOXAPARIN 40 MG/0.4 ML SYRINGE SUB-Q (10:07)
--- NOTE | 2023-08-16 10:39 | PM.PNGS ---
Progress Note: A&P Assessment and Plan (1) Acute appendicitis: Qualifiers: Acute appendicitis type: with localized peritonitis Appendicitis gangrene presence: unspecified whether gangrene present Appendicitis perforation presence: with perforation Appendicitis abscess presence: unspecified whether abscess present Qualified Code(s): K35.32 - Acute appendicitis with perforation, localized peritonitis, and gangrene, without abscess Code(s): K35.80 - Unspecified acute appendicitis Status: Acute Assessment and Plan: Continue antibiotics Advance to regular diet Possibly home in 1-2 days if continuing to improve. Subjective Subjective Date/Time Seen: 08/16/23 10:39 Interval history: Passing flatus. Pain controlled. No fevers. Tolerating full liquids. Exam GI: Inspection: non-distended and other (TAMAR drain serosanguinous) GI Palp: Yes Soft to palpation, No Tenderness to palpation present (GI) and No Guarding due to palpation present (GI) Objective Data Vital Signs Vital Signs: Vital Signs - 24 hr 08/15/23 14:08 08/15/23 22:00 08/16/23 06:00 Temperature 36.9 C 36.6 C 36.3 C L Pulse Rate 98 93 100 Respiratory Rate 17 16 16 Blood Pressure 126/78 135/70 155/83 H Pulse Oximetry 97 96 97 Intake/Output Intake/Output: Intake & Output 08/13/23 08/14/23 08/15/23 08/16/23 23:59 23:59 23:59 23:59 Intake Total 2600 6531.8 6085.0 1475 Output Total 884 219 6825 Balance 2490 5681.8 3740.0 1475 Meds/Results Medications: Active Medications Generic Name Dose Route Start Last Admin Trade Name Freq PRN Reason Stop Dose Admin Acetaminophen 1,000 mg 08/13/23 21:32 Acetaminophen 500 Mg Tablet PO Q6H PRN Mild Pain (1-3) or Fever Hydrocodone Bitart/Acetaminophen 1 tab 08/13/23 21:32 08/15/23 14:52 Hydrocodone/Acetaminophen (*Crx) 5-325 Mg Tablet PO 1 tab Q4H PRN Administration Pain Rated 4-6 Enoxaparin Sodium 40 mg 08/14/23 09:00 08/16/23 10:07 Enoxaparin 40 Mg/0.4 Ml Syringe SUB-Q 40 mg DAILY ALEXANDRA Administration Hydromorphone HCl 1 mg 08/13/23 21:32 Hydromorphone Hcl Inj (*Crx) 1 Mg/Ml Syr IV PUSH Q3H PRN Pain Rated 7-10 Piperacillin/Tazobactam/Dextrose 3.375 gm in 50 mls @ 100 mls/hr 08/13/23 18:00 08/16/23 06:49 Zosyn 3.375 Gm/Ns 50 Ml IVPB Infused Q6HR ALEXANDRA Infusion Lactated Ringer's 1,000 mls @ 90 mls/hr 08/13/23 20:35 08/16/23 05:03 Lr - Lactated Ringers Iv IV CONT 90 mls/hr .Q11H7M ALEXANDRA Administration Metronidazole 500 mg in 100 mls @ 100 mls/hr 08/13/23 22:00 08/16/23 07:19 Flagyl 500 Mg/Iso Soln 100 Ml IVPB Infused Q8H ALEXANDRA Infusion Ibuprofen 800 mg in 200 mls @ 400 mls/hr 08/13/23 22:00 08/16/23 05:33 Caldolor 800 Mg/200 Ml IVPB Infused Q8H ALEXANDRA Infusion Ondansetron HCl 4 mg 08/13/23 21:32 Ondansetron Inj 4 Mg/2 Ml Vial IV PUSH Q6H PRN Nausea And Vomiting Oxycodone HCl 5 mg 08/13/23 21:32 08/15/23 03:35 Oxycodone Hcl (*Crx) 5 Mg Tab Ir PO 5 mg Q4H PRN Administration Pain Rated 7-10 Pantoprazole Sodium 40 mg 08/16/23 09:00 08/16/23 10:07 Pantoprazole 40 Mg Tablet PO 40 mg QAM ALEXANDRA Administration Radiology Results: ITS Impressions Abdomen/Pelvis CT 08/13/23 10:48 IMPRESSION: 1. Acute appendicitis with small amount of free fluid in the pelvis but no organized abscess or free intraperitoneal gas to more specifically suggest perforation. Dr. Eddy discussed these findings with Dr. Gleason at 10:52 AM. 2. Nonspecific thickened and heterogeneous endometrial complex. Recommend follow-up pelvic ultrasound for further evaluation. 3. Diffuse hepatic steatosis. Labs Labs: Laboratory Results - last 24 hr 08/16/23 04:25 WBC 11.2 H RBC 3.67 L Hgb 10.4 L Hct 33.6 L MCV 91.6 MCH 28.3 MCHC 31.0 L RDW 15.2 H Plt Count 249 MPV 11.8 H Immature Gran % (Auto) 0.9 H Neut % (Auto) 78.1 H Lymph % (Auto)
[2023-08-16 14:42] VITALS: BP 138/64; PULSE 92; RESP 16; TEMP 36.3; O2SAT 98
[2023-08-16 19:48] VITALS: BP 137/77; PULSE 86; RESP 16; TEMP 37; O2SAT 98
[2023-08-16 21:40] VITALS: O2SAT 98
[2023-08-17] MEDS: PIPERACILLN/TAZ 3.375GM/NS50ML 3.375 GM/50 ML BAG IVPB ×2 (00:33→05:36)
[2023-08-17 04:25] VITALS: BP 140/77; PULSE 90; RESP 16; TEMP 36.6; O2SAT 98
[2023-08-17] MEDS: IBUPROFEN IV 800 MG/200 ML 800 MG/200 ML BAG 400 MG IVPB (05:36)
[2023-08-17] MEDS: metroNIDAZOLE 500 MG/ISO 100ML 500 MG/100 ML BAG 100 MG IVPB (06:18)
[2023-08-17] MEDS: ENOXAPARIN 40 MG/0.4 ML SYRINGE SUB-Q (08:44)
[2023-08-17] MEDS: PANTOPRAZOLE 40 MG TABLET PO (08:44)
[2023-08-17] MEDS: LACTATED RINGERS 1,000 ML 90 ML IV CONT (08:44)
[2023-08-17 08:55] VITALS: PULSE 90; RESP 16; O2SAT 98
--- NOTE | 2023-08-17 11:41 | PM.DS ---
DS: Admitting Diagnosis Discharge Date 08/17/2023 Admitting Diagnosis Acute perforated appendicitis, sepsis DS: Discharge Diagnosis Discharge Diagnosis (1) Acute appendicitis: Qualifiers: Acute appendicitis type: with localized peritonitis Appendicitis abscess presence: unspecified whether abscess present Appendicitis gangrene presence: unspecified whether gangrene present Appendicitis perforation presence: with perforation Qualified Code(s): K35.32 - Acute appendicitis with perforation, localized peritonitis, and gangrene, without abscess Code(s): K35.80 - Unspecified acute appendicitis Status: Acute (2) Obstructive sleep apnea: Code(s): G47.33 - Obstructive sleep apnea (adult) (pediatric) Status: Acute (3) Sepsis: Qualifiers: Sepsis type: sepsis due to unspecified organism Sepsis acute organ dysfunction status: without acute organ dysfunction Qualified Code(s): A41.9 - Sepsis, unspecified organism Code(s): A41.9 - Sepsis, unspecified organism Status: Acute DS: Summary Hospital Course Reason for hospitalization: Acute perforated appendicitis Hospital Course: This is a 57-year-old woman who presented to emergency department 08/13/2023 with right lower quadrant pain. She had an elevated white blood count and CT showed acute appendicitis without evidence of abscess. She underwent laparoscopic partial cecectomy with appendectomy on 08/13/[address] Zapien. The appendix was found to be perforated right at the base. A drain was placed at the time of surgery. She was then returned to the surgical floor postoperatively. She was continued on IV Zosyn and started on a clear liquid diet. She was showing signs of a mild ileus initially postoperatively but by postop day to this was improved and she was advanced to a full liquid diet. Her drain output was remaining serosanguineous. On postop day 3 she was advanced to a regular diet. She was tolerating this and was remaining afebrile. Postop day 4 the drain was removed and she was discharged home. Pathology showed evidence of acute appendicitis perforation. Status at Discharge Functional status at discharge: independent ambulation Overall status at discharge: patient is progressing back to baseline Time Spent with Patient Time attestation: Total time spent providing and/or coordinating discharge services: Time spent: Less than 30 minutes Exam Const: General: comfortable and no acute distress Orientation/consciousness: patient oriented x3 Resp: Effort & Inspection: normal respiratory effort Auscultation: clear to auscultation bilaterally Cardio: Rate: regular rate Rhythm: regular rhythm Heart sounds: S1 normal heart sound present and S2 normal heart sound present GI: Inspection: non-distended and incision (Intact with glue) GI Palp: Yes Soft to palpation and Yes Tenderness to palpation present (GI) (Incisional) Auscultation: normal bowel sounds DS: Data Data Completed and Pending Completed studies during hospitalization: Pending at discharge 08/13/23 20:07 Surgical [PTH] Routine Labs on day of discharge: Preliminary micro results at discharge 08/13/23 22:05 Blood Culture - Preliminary Blood 08/13/23 22:04 Blood Culture - Preliminary Blood Discharge Plan Discharge Attending physician on discharge: Jose Zapien Consulting providers: Jose Zapien Discharging Clinician: Karthikeyan Witt Patient Disposition: Home, Self-Care Activity: other - see discharge instructions Diet: regular Wound Care Instructions: other - see discharge instructions Discharge Instructions: DISCHARGE INSTRUCTION SHEET FOR HERNIA, GALLBLADDER AND APPENDIX SURGERIES DR. WITT PATIENT TO TAKE HOME 1. May shower in 24 hours, no soaking in bath x 2weeks. 2. Call office for: Wound increasingly painful or bleeding Vomiting Fever of greater than 101 degrees 3. If no bowel
== END 2023-08-17 12:45 | disposition home or self-care (01) | DRG 853 ==
LOC: ANHED 11:16 → ANHSURGERY 11:29 → ANH2MED 08-14 11:26
PROVIDERS: Nurse Practitioner Family; Admitting Provider Surgery; Emergency Provider Emergency Medicine; PCP Internal Medicine; Visit Provider Surgery
PROC: 0DTJ4ZZ Resection of Appendix, Percutaneous Endoscopic Approach (ICD-10-PCS; CPT 44970; principal; 2023-08-13 17:00)
DX: A41.9 Sepsis, unspecified organism (principal); K35.32 Acute appendicitis with perforation, localized peritonitis, and gangrene, without abscess; K56.7 Ileus, unspecified; G47.33 Obstructive sleep apnea (adult) (pediatric); F41.9 Anxiety disorder, unspecified; E55.9 Vitamin D deficiency, unspecified; E03.9 Hypothyroidism, unspecified; R73.9 Hyperglycemia, unspecified; E66.3 Overweight; Z68.39 Body mass index [BMI] 39.0-39.9, adult
CPT/HCPCS: 36415; 74177; 80048; 80053; 81001; 83605; 83690; 85025; 87040; 87086; 87088; 88304; 96361; 96365; 96375; 96376; 99285; A9270; C9113; G0378; J1100; J1170; J1650; J1741; J1836; J1885; J2250; J2405; J2543; J2704; J3010; J7030; J7040; J7120; Q9967

== ENCOUNTER 2024-02-13 00:09 | Day surgery (SDC) | payer OTHER, SELFPAY ==
[2024-01-26 11:07] VITALS: BMI 36.6
--- NOTE | 2024-02-12 16:40 | WPDANESEPP ---
Anes - Eval Pre Procedure Procedure: Operation Date: 02/13/24 07:30 Proposed Procedures p Colonoscopy - Nadeem Mcrae MD Date/Time: 02/12/24 16:40 Pre Op Diagnosis: hx of colon polyps Patient Data Age: 58 Gender: F Height: 1.57 m Weight: 91 kg Allergies Allergy/AdvReac Type Severity Reaction Status Date / Time No Known Allergies Allergy Verified 01/29/24 09:34 Home Medications Medication Instructions Recorded Confirmed Type sertraline 100 mg tablet 200 mg PO DAILY 12/28/20 01/29/24 History dextroamphetamine-amphetamine 10 10 mg PO .NOON 07/19/22 01/29/24 History mg tablet dextroamphetamine-amphetamine ER 20 mg PO DAILY 07/19/22 01/29/24 History 20 mg 24hr capsule,extend release fsehiill-hajhhze-ahbi-iron 18 1 tablet PO DAILY 07/19/22 01/29/24 History mg-FA 400 mcg-vit K 25 mcg tablet (One-A-Day Women's Complete(with vit K)) buspirone 10 mg tablet 10 mg PO BID 08/13/23 01/29/24 History cariprazine 3 mg capsule (Vraylar) 3 mg PO HS 08/13/23 01/29/24 History propranolol 10 mg tablet 10 mg PO BID 08/13/23 01/29/24 History albuterol sulfate 90 mcg/actuation 1 puff inhalation Q4H PRN 09/24/23 01/29/24 Rx aerosol inhaler shortness of breath or wheezing #8.5 grams atorvastatin 20 mg tablet 20 mg PO QHS #90 tabs 01/02/24 01/29/24 Rx levothyroxine 100 mcg tablet 100 mcg PO DAILY 01/26/24 01/29/24 History blood-glucose meter,continuous #1 ea 01/29/24 01/29/24 Rx (FreeStyle Alex 3 [place]) blood-glucose sensor (FreeStyle #1 ea 01/29/24 01/29/24 Rx Alex 3 Sensor device) metformin 1,000 mg tablet 1,000 mg PO BIDWMEAL #60 tabs 01/29/24 01/29/24 Rx metformin 500 mg tablet 500 mg PO BIDWMEAL #14 tabs 01/29/24 01/29/24 Rx Patient hx anesthesia problems: none Family hx anesthesia problems: none Results Review: All pre-operative results and documents have been reviewed as part of the pre-operative evaluation. [facility] Past Medical History Medical History Abnormal brain MRI ADHD Allergies Anxiety Bipolar 1 disorder BPPV (benign paroxysmal positional vertigo) Bronchitis Depression GERD (gastroesophageal reflux disease) Hyperglycemia Hypertriglyceridemia Hypothyroidism Impacted cerumen, right ear Migraine Mild acid reflux Nausea Obstructive sleep apnea Screening for breast cancer Screening for colon cancer Screening for lipoid disorders Screening for metabolic disorder Sleep apnea Thyroid disorder Type 2 diabetes mellitus Vertigo Vitamin D deficiency Wheezing Worsening headaches Surgical History Surgical History H/O section 1979 H/O shoulder surgery Left and Right 2018 H/O sinus surgery 2015 History of colonoscopy with polypectomy 2020 History of hysteroscopy Hx of appendectomy Family History Family History Mother Lung cancer COPD (chronic obstructive pulmonary disease) Father Suicide Grandparent Cerebrovascular accident Social History Social History Smoking status: Never smoker Alcohol intake: never Drinks per week: 1 Alcohol use details: Rarely Substance use: never Substance use type: does not use Do You Feel Safe in your Home?: Yes Lack of Transportation: No Lack of Food: Never True Current Housing: I Have Housing Concerned About Future Housing: No Difficulty Paying Gas/Electric Bills: No Difficulty Paying for Meds: No Currently Unemployed: No Education: Bachelor's Degree Difficulty w/ Childcare or Family Care: No Living arrangements: alone Spiritual care concerns: No Exam Day of Procedure 02/12/24 16:40 Patient weight: obese
[2024-02-13 06:36] VITALS: BP 138/88; PULSE 103; RESP 18; TEMP 36; O2SAT 97; BMI 35.9
[2024-02-13] MEDS: LACTATED RINGERS 1,000 ML 150 ML IV CONT (06:42)
[2024-02-13 06:46] LABS: Glucose Point of Care 182 mg/dl (65-105)
--- NOTE | 2024-02-13 06:46 | WPDANESEPPF ---
Anes - Initial Pre Proc Eval Procedure: Operation Date: 02/13/24 07:30 Proposed Procedures p Colonoscopy - Nadeem Mcrae MD Date/Time: 02/13/24 06:46 Surgeon: Nadeem Mcrae MD Pre Op Diagnosis: hx of colon polyps Patient Data Age: 58 Gender: F Height: 1.57 m Weight: 89.2 kg Last Vital Signs Temp 36.0 C L 02/13/24 06:36 Pulse 103 H 02/13/24 06:36 Resp 18 02/13/24 06:36 BP 138/88 02/13/24 06:36 Pulse Ox 97 02/13/24 06:36 O2 Del Method Room Air 02/13/24 06:36 Allergies Allergy/AdvReac Type Severity Reaction Status Date / Time No Known Allergies Allergy Verified 02/13/24 06:16 Home Medications Medication Instructions Recorded Confirmed Type sertraline 100 mg tablet 200 mg PO DAILY 12/28/20 02/13/24 History dextroamphetamine-amphetamine 10 10 mg PO .NOON 07/19/22 02/13/24 History mg tablet dextroamphetamine-amphetamine ER 20 mg PO DAILY 07/19/22 02/13/24 History 20 mg 24hr capsule,extend release ejgvdzcj-obhkpya-vxpa-iron 18 1 tablet PO DAILY 07/19/22 02/13/24 History mg-FA 400 mcg-vit K 25 mcg tablet (One-A-Day Women's Complete(with vit K)) buspirone 10 mg tablet 10 mg PO BID 08/13/23 02/13/24 History cariprazine 3 mg capsule (Vraylar) 3 mg PO HS 08/13/23 02/13/24 History propranolol 10 mg tablet 10 mg PO BID 08/13/23 02/13/24 History albuterol sulfate 90 mcg/actuation 1 puff inhalation Q4H PRN 09/24/23 02/13/24 Rx aerosol inhaler shortness of breath or wheezing #8.5 grams atorvastatin 20 mg tablet 20 mg PO QHS #90 tabs 01/02/24 02/13/24 Rx levothyroxine 100 mcg tablet 100 mcg PO DAILY 01/26/24 02/13/24 History blood-glucose meter,continuous #1 ea 01/29/24 01/29/24 Rx (FreeStyle Alex 3 [place]) blood-glucose sensor (FreeStyle #1 ea 01/29/24 01/29/24 Rx Alex 3 Sensor device) metformin 1,000 mg tablet 1,000 mg PO BIDWMEAL #60 tabs 01/29/24 02/13/24 Rx metformin 500 mg tablet 500 mg PO BIDWMEAL #14 tabs 01/29/24 02/13/24 Rx Laboratory Tests 02/13/24 06:40 POC Capillary Glucose Pending Patient hx anesthesia problems: none Family hx anesthesia problems: none Results Review: All pre-operative results and documents have been reviewed as part of the pre-operative evaluation. [facility] Past Medical History Medical History Abnormal brain MRI ADHD Allergies Anxiety Bipolar 1 disorder BPPV (benign paroxysmal positional vertigo) Bronchitis Depression GERD (gastroesophageal reflux disease) Hyperglycemia Hypertriglyceridemia Hypothyroidism Impacted cerumen, right ear Migraine Mild acid reflux Nausea Obstructive sleep apnea Screening for breast cancer Screening for colon cancer Screening for lipoid disorders Screening for metabolic disorder Sleep apnea Thyroid disorder Type 2 diabetes mellitus Vertigo Vitamin D deficiency Wheezing Worsening headaches Surgical History Surgical History H/O section 1979 H/O shoulder surgery Left and Right 2017 H/O sinus surgery 2015 History of colonoscopy with polypectomy 2020 History of hysteroscopy Hx of appendectomy Family History Family History Mother Lung cancer COPD (chronic obstructive pulmonary disease) Father Suicide Grandparent Cerebrovascular accident Social History Social History Smoking status: Never smoker Alcohol intake: never Drinks per week: 1 Alcohol use details: Rarely Substance use: never Substance use type: does not use Do You Feel Safe in your Home?: Yes Lack of Transportation: No Lack of Food: Never True Current Housing: I Have Housing Concerned About Future Housing: No Difficulty Paying Gas/Electric Bills: No Difficulty Paying for Meds: No Currently Unemployed: No Education: Bachelor's
--- NOTE | 2024-02-13 07:27 | PM.IMHP ---
H&P: HPI History of Present Illness Date/Time: 02/13/24 07:27 Chief Complaint: History of colonic polyps Narrative: The patient has a history of colonic polyps, the last colonoscopy was 3 years ago. Review of Systems Review of Systems: All systems reviewed & are unremarkable except as noted in HPI and below PMFSH Past Medical History Medical History Abnormal brain MRI ADHD Allergies Anxiety Bipolar 1 disorder BPPV (benign paroxysmal positional vertigo) Bronchitis Depression GERD (gastroesophageal reflux disease) Hyperglycemia Hypertriglyceridemia Hypothyroidism Impacted cerumen, right ear Migraine Mild acid reflux Nausea Obstructive sleep apnea Screening for breast cancer Screening for colon cancer Screening for lipoid disorders Screening for metabolic disorder Sleep apnea Thyroid disorder Type 2 diabetes mellitus Vertigo Vitamin D deficiency Wheezing Worsening headaches Surgical History Surgical History H/O section 1979 H/O shoulder surgery Left and Right 2017 H/O sinus surgery 2015 History of colonoscopy with polypectomy 2020 History of hysteroscopy Hx of appendectomy Family History Family History Mother Lung cancer COPD (chronic obstructive pulmonary disease) Father Suicide Grandparent Cerebrovascular accident Social History Social History Smoking status: Never smoker Alcohol intake: never Drinks per week: 1 Alcohol use details: Rarely Substance use: never Substance use type: does not use Do You Feel Safe in your Home?: Yes Lack of Transportation: No Lack of Food: Never True Current Housing: I Have Housing Concerned About Future Housing: No Difficulty Paying Gas/Electric Bills: No Difficulty Paying for Meds: No Currently Unemployed: No Education: Bachelor's Degree Difficulty w/ Childcare or Family Care: No Living arrangements: alone Spiritual care concerns: No Meds Home Medications and Allergies Home Medications Medication Instructions Recorded Confirmed Type sertraline 100 mg tablet 200 mg PO DAILY 12/28/20 02/13/24 History dextroamphetamine-amphetamine 10 10 mg PO .NOON 07/19/22 02/13/24 History mg tablet dextroamphetamine-amphetamine ER 20 mg PO DAILY 07/19/22 02/13/24 History 20 mg 24hr capsule,extend release jghwwxsw-kfujrzc-siqr-iron 18 1 tablet PO DAILY 07/19/22 02/13/24 History mg-FA 400 mcg-vit K 25 mcg tablet (One-A-Day Women's Complete(with vit K)) buspirone 10 mg tablet 10 mg PO BID 08/13/23 02/13/24 History cariprazine 3 mg capsule (Vraylar) 3 mg PO HS 08/13/23 02/13/24 History propranolol 10 mg tablet 10 mg PO BID 08/13/23 02/13/24 History albuterol sulfate 90 mcg/actuation 1 puff inhalation Q4H PRN 09/24/23 02/13/24 Rx aerosol inhaler shortness of breath or wheezing #8.5 grams atorvastatin 20 mg tablet 20 mg PO QHS #90 tabs 01/02/24 02/13/24 Rx levothyroxine 100 mcg tablet 100 mcg PO DAILY 01/26/24 02/13/24 History blood-glucose meter,continuous #1 ea 01/29/24 01/29/24 Rx (FreeStyle Alex 3 [place]) blood-glucose sensor (FreeStyle #1 ea 01/29/24 01/29/24 Rx Alex 3 Sensor device) metformin 1,000 mg tablet 1,000 mg PO BIDWMEAL #60 tabs 01/29/24 02/13/24 Rx metformin 500 mg tablet 500 mg PO BIDWMEAL #14 tabs 01/29/24 02/13/24 Rx Allergies Allergy/AdvReac Type Severity Reaction Status Date / Time No Known Allergies Allergy Verified 02/13/24 06:16 Vital Signs Vital Signs - 24 hr 02/13/24 06:36 Temperature 96.8 F L Pulse Rate 103 H Respiratory Rate 18 Blood Pressure 138/88 Pulse Oximetry 97 Oxygen Delivery Room Air Assessment and Plan Assessment and plan (1) History of colonic polyps: Code(s): Z86.010 - Personal history of colon polyp
--- NOTE | 2024-02-13 07:50 | SUR.OPER ---
unable to retrieve cecal polyp
[2024-02-13 07:53] VITALS: BP 102/67; PULSE 91; RESP 24; O2SAT 98
[2024-02-13 08:03] VITALS: BP 102/71; PULSE 85; RESP 20; O2SAT 99
[2024-02-13 08:18] VITALS: BP 101/70; PULSE 86; RESP 18; O2SAT 99
--- NOTE | 2024-02-13 09:32 | SUR.OPER ---
dr. covarrubias aware cecal polyp unable to retrieve
== END 2024-02-13 08:48 | disposition home or self-care (01) ==
PROVIDERS: PCP Internal Medicine; Referring Provider Clinical Nurse Specialist; Visit Provider Internal Medicine Gastroenterology
PROC: 0DJD8ZZ Inspection of Lower Intestinal Tract, Via Natural or Artificial Opening Endoscopic (ICD-10-PCS; CPT 45378; principal; 2024-02-13 07:30)
DX: Z12.11 Encounter for screening for malignant neoplasm of colon (principal); D12.5 Benign neoplasm of sigmoid colon; K63.5 Polyp of colon; K64.1 Second degree hemorrhoids; E11.9 Type 2 diabetes mellitus without complications; Z79.84 Long term (current) use of oral hypoglycemic drugs; E66.9 Obesity, unspecified; Z68.36 Body mass index [BMI] 36.0-36.9, adult
CPT/HCPCS: 45385; 82948; 88305; J2003; J2704; J7120

== ENCOUNTER 2024-03-01 09:15 | Outpatient (RCR) | payer OTHER, SELFPAY | END 2024-05-04 12:17 | disposition home or self-care (01) | LOC: ANHDMC 09:15 | PROVIDERS: PCP Internal Medicine; Visit Provider Clinical Nurse Specialist | DX: E11.9 Type 2 diabetes mellitus without complications (principal); Z71.89 Other specified counseling | CPT/HCPCS: G0108 ==

== ENCOUNTER 2024-06-22 08:08 | Outpatient (CLI) | payer BC, SELFPAY ==
--- OUTSIDE RECORDS SUMMARY | 2024-06-22 08:21 | XMS_ITS ---
Author Organization [facility] [employer] [facility] Address [facility] [address] [facility] [address] [place] [address] Care Team Providers Care Community Representative Name Role Phone Theron Gamez DO Primary Care Provider Elizabeth Raygoza Unavailable [phone] REASON FOR VISIT Depression Social History Sex Assigned At : Social History Observation Description Sex Assigned At Female Encounters Encounter Location Date Provider Diagnosis [facility] [employer] [place] [id number] [facility] [address] [place] [address] 05/04/2024 Elizabeth Ngo Plan Of Treatment Next Appt Details Provider Name:Elizabeth Ngo , 11/19/2024 08:45:00 AM, [address], [facility] [address], [place], [address], Progress Notes * KOKO MULTANIDOB:1965 (58 yo F)Acc No.[id number]:05/04/2024 Patient: KOKO HAY Provider: JANIYA MOSCOSO :1965 A ge:58 Y S ex:Female Date:05/04/2024 Address:[address] [place], [id number] Pcp:Theron Gamez DO Subjective: * Chief Complaints: * 1 . Depression. * Medical History: Objective: * Vitals: Assessment: Plan: * Treatment: * Billing Information: * Visit Code: * Procedure Codes: * Electronic signature of JANIYA Crowley on 06/22/2024 at 08:21 AM [employer] Sign off status: Pending * Provider: JANIYA MOSCOSO Date: 0 05/04/2024 Generated for Tammie Alvarado/Tawana on: 0 06/22/2024 08:21 AM [employer]
--- OUTSIDE RECORDS SUMMARY | 2024-06-22 08:21 | XMS_ITS | Clinical Summary ---
Author Organization [facility] Address [address] [place] [id number] Care Team Providers Care Copy Lathe Operator Name Role Phone Unavailable Primary Care Provider Unavailabl e Social History Tobacco Use Types Packs/Day Years Used Date Smoking Tobacco: Never Assessed Comments Unknown Sex and Gender Information Value Date Recorded Sex Assigned at Not on file Legal Sex Female 7:02 PM CDT Gender Identity Not on file Sexual Orientation Not on file Plan of Treatment Health Maintenance Due Date Last Done Comments Cervical Cancer Screening Pa p Smear (Age 30 to 64) Every 3 Years 1964 Colorectal Cancer Screening Colonoscopy (10 Years) 1965 Annual Physical 09/04/1967 Hepatitis C 1982 DTaP, Tdap and Td Vaccines ( 1 - Tdap) 09/04/1983 Cervical Cancer Screening Pa p with HPV Testing (Age 30 to 64) Every 5 Years 1994 Cervical Cancer Screening with HPV 1994 Mammogram Screening 2004 Zoster Vaccines (1 of 2) 2014 COVID-19 Vaccine (2023-2 5 season) 2023 Influenza Adult (#1) 2024 Meningococcal B Vaccine Aged Out No l onger eligible based on patient's age to complete this topic Meningococcal Vaccine Aged Out No supa malaika eligible based on patient's age to complete this topic Pneumococcal Vaccine: Pediat rics (0 to 5 Years) and At-Risk Patients (6 to 64 Years) Aged Out No longer eligible b ased on patient's age to complete this topic RSV Immunizations Under 20 Months Aged Out No longer eligible based on patient's age to complete this topic
--- OUTSIDE RECORDS SUMMARY | 2024-06-22 08:21 | XMS_ITS ---
Author Organization [facility] Address [facility] [address] [address] Care Team Providers Care Fluorescent Solution Mixer Name Role Phone Theron Gamez DO Primary Care Provider Elizabeth Raygoza [phone] REASON FOR VISIT No calls or messages Social History Sex Assigned At : Social History Observation Description Sex Assigned At Female Encounters Encounter Location Date Provider Diagnosis [facility] [place] [id number] [facility] [address] [facility] [address] [place] [address] 05/25/2024 Elizabeth Ngo Plan Of Treatment Next Appt Details Provider Name:Elizabeth Ngo , 11/19/2024 08:45:00 AM, [facility], [facility] [address], [place], [address], Progress Notes * RANGEL KOKODOB:1965 (58 yo F)Acc No.[id number]:05/25/2024 Patient: FRANK HAYELA Provider: HAKAN MOSCOSOHNP :1965 A ge:58 Y S ex:Female Date:05/25/2024 Address:[address] [id number] Pcp:Theron Gamez DO Subjective: * Chief Complaints: * 1 . No calls or messages. * Medical History: Objective: * Vitals: Assessment: Plan: * Treatment: * Procedure Codes: N S NO SHOW * Billing Information: * Visit Code: * Procedure Codes: NS NO SHOW. * UMER LENDING MANAGER Sign off status: Completed true * Provider: JANIYA MOSCOSO Date: 0 05/25/2024 Generated for Tammie Kirkpatrick on: 06/22/2024 08:21 AM CONSUMER LENDING MANAGER
--- OUTSIDE RECORDS SUMMARY | 2024-06-22 08:21 | XMS_ITS | Data Portability ---
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 Plan of Treatment Reminders Order Date Submit Date Provider Last Modified By Organization Details Last Modified Time Details Appointments None recorded. Lab lipid panel, serum 2018 019 [employer] [facility] [address] [place], [address], 9 09:36:48 TSH, ultra-sensi tive, serum 2018 019 [employer] [facility] [address] [place], [address], 9 09:36:51 HbA1c (hemoglobin A1c), blood 2018 019 [employer] [facility]), [address] [place], [address], 9 09:36:50 BMP, serum or plasma 2018 019 [employer] [facility] [address] [place], [address], 9 09:36:49 biopsy, endometrial 2017 018 [facility], [address] [place] [address], [address], 8 14:19:25 Referral None recorded. Procedures None recorded. Surgeries None recorded. Imaging None recorded. Medication Orders medroxyprog esterone 2.5 mg tablet [email or web address] [facility], [address], [place], [address], 9 08:44:05 estradiol 0.025 mg/24 hr semiweekly transdermal patch [email or web address] [facility], [address], [place], [address], 9 08:43:23 progesteron e micronized 100 [address] capsule [address] [facility], [address], [place], [address], 8 08:38:44 Minivelle 0.05 mg/24 hr transdermal patch [email or web address] [facility], [address], [place], [address], 8 11:30:17 Minivelle 0.05 mg/24 hr transdermal patch [address] [facility], [address], [place], [address], 8 11:30:17 Patient TargetsNo targets recorded. Patient Instructions Encounter Date Encounter Id Patient Instructions Last Modified By Organization Details Last Modified Time 10/04/2016 [id number] I have reviewed the risks and benefits of hormonal treatment of menopausal symptoms. ACOG and NAMS recommendations reviewed, as well as current published data. The relative and absolute risks of breast cancer, stroke, endometrial cancer, VTE and coronary heart disease are discussed, as well as benefits to vasomotor symptoms, mood changes, vaginal symptoms, bone health, and colon cancer risk. The patient wishes to proceed with treatment. Not available 10/04/2016 16:18:35 11/12/2016 [id number] I have reviewed the risks and benefits of hormonal treatment of menopausal symptoms. ACOG and NAMS recommendations reviewed, as well as current published data. The relative and absolute risks of breast cancer, stroke, endometrial cancer, VTE and coronary heart disease are discussed, as well as benefits to vasomotor symptoms, mood changes, vaginal symptoms, bone health, and colon cancer risk. The patient wishes to proceed with treatment. Not available 11/12/2016 16:39:08 08/12/2017 [id number] calcium requirem ent education Not available 08/12/2017 08:55:49 08/18/2018 [id number] calcium requirem ent education Not available 08/18/2018 09:11:15 Reason for Referral None Reported. Results Created Date Observation Date Name Description Value Unit Range Abnormal Flag Note LastModifiedBy Organization Detail LastModifiedTime 08/19/1908/19/2018 lipid panel , serum cholesterol, total 159 mg/dL 100-19 9 Not Available [facility] ([facility]) [address] [place], [address], 08/19/2018 09:36:48 08/19/1908/19/2018 lipid panel , serum triglyceride s 298 mg/dL 0-149 above high normal Not Available [facility] ([facility]) [address] [place], [address], 08/19/2018 09:36:48 08/19/1908/19/2018 lipid panel , serum HDL cholesterol 39 mg/dL >39 below low normal Not Available [facility] ([facility]) [address] [place], [address], 08/19/2018 09:36:48 08/19/1908/19/2018 lipid panel , serum VLDL cholesterol jocelyne 60 mg/dL 5-40 above high normal Not Available [facility] ([facility]) [address] [place], [address], 08/19/2018 09:36:48 08/19/19 19 08/19/2018 lipid panel , serum LDL cholesterol calc 60 mg/dL 0-99 Not Available [facility] ([facility]) [address] [facility] [place], [address], 08/19/2018 09:36:48 08/19/19 19 08/19/2018 lipid panel , 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 2 LDL/H DL Ratio Men Women 1/2 Avg.R isk 1.0 1.5 Avg.R isk 3.6 3.2 2X Avg.R isk 6.2 5.0 3X Avg.R isk 8.0 6.1 Not Available [facility] ([facility]) [address] [facility], [place], [address], 08/19/2018 09:36:48 08/19/1908/19/2018 BMP, serum or plasm a glucose 102 mg/dL 65-99 above high normal Not Available [facility] ([facility]) [address] [facility] [place], [address], 08/19/2018 09:36:49 08/19/1908/19/2018 BMP, serum or plasm a BUN 10 mg/dL 6-24 Not Available [facility] ([facility]) [address] [facility] [place], [address], 08/19/2018 09:36:49 08/19/1908/19/2018 BMP, serum or plasm a creatinine 0.72 mg/dL 0.57-1 .00 Not Available [facility] ([facility]) [address] [facility] [place], [address], 08/19/2018 09:36:49 08/19/19 08/19/2018 BMP, serum or plasm a eGFR if nonafricn AM 96 mL/mi n/1.7 3 >59 Not Available [facility] ([facility]) [address] [facility] [place], [address], 08/19/2018 09:36:49 08/19/19 19 08/19/2018 BMP, serum or plasm a eGFR if africn AM 111 mL/mi n/1.7 3 >59 Not Available [facility] ([facility]) [address] [facility] [place], [address], 08/19/2018 09:36:49 08/19/19 19 08/19/2018 BMP, serum or plasm a BUN/creatini ne ratio 14 9-23 Not Available [facility] ([facility]) [address] [facility] [place], [address], 08/19/2018 09:36:49 08/19/19 19 08/19/2018 BMP, serum or plasm a sodium 145 mmol/ L 134-14 4 above high normal Not Available [facility] ([facility]) [address] [facility] [place], [address], 08/19/2018 09:36:49 08/19/1908/19/2018 BMP, serum or plasm a potassium 4.4 mmol/ L 3.5-5. 2 Not Available [facility] ([facility]) [address] [facility] [place], [address], 08/19/2018 09:36:49 08/19/1908/19/2018 BMP, serum or plasm a chloride 106 mmol/ L 96-106 Not Available [facility] ([facility]) [address] [facility] [place], [address], 08/19/2018 09:36:49 08/19/19 19 08/19/2018 BMP, serum or plasm a carbon dioxide, total 20 mmol/ L 20-29 Not Available [facility] ([facility]) [address] [facility], [place], [address], 08/19/2018 09:36:49 08/19/19 19 08/19/2018 HbA1c (hemo globi n A1c), blood hemoglobin A1C 6.0 % 4.8-5. 6 above high normal Predi abete s: 5.7 - 6.4 Diabe joey: >6.4 Glyce lance contr ol for adult s with diabe joey: <7.0 Not Available [facility] ([facility]) [address] [facility], [place], [address], 08/19/2018 09:36:50 08/19/19 19 08/19/2018 TSH, ultra -sens itive , serum TSH 1.520 uIU/m L 0.450- 4.500 Not Available [facility] ([facility]) [address] [facility], [place], [address], 08/19/2018 09:36:51 05/09/19 18 05/09/2017 US, peldominic s No observ ation record ed. [email or web address] [facility] [address] [place], [address], 05/09/2017 12:58:07 Result Notes None recorded. Problems Name Problem SNOMED Code Status Onset Date Resolution Date Notes Provider Name and Address Organization Details Recorded Time Dysfunctio nal uterine bleeding Active Rosanna Ortiz (TERMED) nullFormerly [facility] 5 09:41:26 Uterine leiomyoma 35255163 Active MARLEEN ROME MD [address] [place] [address],[place], [address] , Formerly [facility] 5 17:32:45 Abnormal uterine bleeding 4420221855116 0 Active MARLEEN ROME MD [address] [place] [address],[place], [address] , [facility] 5 17:32:45 Family history of breast cancer 320679383 [facility] 14:36:41 Perimenopa usal disorder 352536750 Active Krys Walter ramos, [facility] 5 08:57:15 Postmenopa usal bleeding 46086138 Active MARLEEN ROME MD [address], [place], [address] , [facility] 5 07:25:03 Menopausal syndrome 984626325 Active MARLEEN ROME MD [address], [place], [address] , [facility] 5 13:02:18 Problem Notes None recorded. Procedures Surgical History Date Name Laterality Status Provider Name and Address Organization Details Recorded Time 05/09/19 18 Endometrial Biopsy Procedure Note ([facility] completed MARLEEN ROME MD [address], [place], [address], [facility] 05/09/2017 14:00:58 08/30/19 17 Date of Last Colonoscopy completed Temitope Buckner [facility] 08/30/2016 09:09:01 08/27/19 17 Date of Last Mammogram completed Rocco Wood(Term) [facility] 11/12/2016 15:52:52 08/07/19 17 Date of Last Pap Smear completed Rocco Wood(Term) [facility] 11/12/2016 12:22:13 02/01/20 15 Hysteroscopy ([facility]) completed MARLEEN ROME MD [address], [place], [address], [facility] 01/31/2015 11:34:30 02/01/20 15 AUTOMOTIVE SALES REPRESENTATIVE- D&C completed Nini Kelsey (TERMED) [facility] 02/17/2015 10:12:45 11/10/19 15 Endometrial Biopsy Procedure Note ([facility]) completed MARLEEN RMOE MD [address], [place], [address], [facility] 11/10/2014 07:23:26 11/10/19 15 Saline Infusion Sonogram (SIS) ([facility]) completed MARLEEN ROME MD [address] [place] [address],[address], [place], [address], [facility] 11/10/2014 07:23:26 11/10/19 15 AUTOMOTIVE SALES REPRESENTATIVE-Endometrial Biopsy completed Rocco Wood(Term) [facility] 01/24/2015 14:11:10 06/04/19 13 Surgery-other completed Cj Reyes (TERMED) [facility] 09/23/2014 14:32:16 04/28/18 86 OB- Section completed Cj Reyes (TERMED) [facility] 09/23/2014 14:32:16 AUTOMOTIVE SALES REPRESENTATIVE-other surgery completed Rocco Wood(Term) [facility] 08/18/2018 08:46:07 Imaging Results Imaging Date Name Status LastModified by Organiz ation Details LastModified Time 05/09/2017 US, pelvis completed [email or web address] [facility] [address] [place], [address], 05/09/2017 12:58:07 Procedure Notes None recorded. Medical Equipment None Reported. Allergies No known drug allergies Medications Name Sig Start Date Stop Date Status Note LastModified by Organization Details LastModified Time losartan 50 mg tablet 08/06 completed Not Available Not Available Not Available atorvasta tin 40 mg tablet Take 1 tablet every day by oral route. 08/06 completed Not Available Not Available Not Available lamotrigi ne 150 mg tablet 08/18 completed Not Available Not Available Not Available primidone 50 mg tablet 08/18 completed Not Available Not Available Not Available gabapenti n 600 mg tablet active Not Available Not Available Not Available atorvasta tin 20 mg tablet active Not Available Not Available Not Available lamotrigi ne 200 mg tablet active Not Available Not Available Not Available trazodone 50 mg tablet 11/12 completed Not Available Not Available Not Available atorvasta tin 10 mg tablet Take 1 tablet every day by oral route. 08/12 completed Not Available Not Available Not Available azithromy khari 250 mg tablet 08/06 completed Not Available Not Available Not Available Lidocaine Viscous 2 % mucosal solution 08/12 completed Not Available Not Available Not Available medroxypr ogesteron e 2.5 mg tablet Take 1 tablet every day by oral route at bedtime. 08/18 completed Not Available Not Available Not Available propranol ol ER 60 mg capsule,2 4 hr,extend ed release active Not Available Not Available Not Available betametha sone, augmented 0.05 % topical cream 08/06 completed Not Available Not Available Not Available sertralin e 100 mg tablet 08/06 completed Not Available Not Available Not Available estradiol 0.05 mg/24 hr semiweekl y transderm al patch Apply 1 patch twice a week by transder mal route. 05/14 completed Decrease d dose per LMJ-AB Not Available Not Available Not Available triamcino lone acetonide 0.1 % topical cream 08/06 completed Not Available Not Available Not Available lamotrigi ne 25 mg tablet 08/06 completed Not Available Not Available Not Available levothyro xine 75 mcg tablet active Not Available Not Available Not Available oxycodone -acetamin ophen 5 mg-325 mg tablet 08/18 completed Not Available Not Available Not Available levothyro xine 88 mcg tablet Take 1 tablet every day by oral route. 08/06 completed Not Available Not Available Not Available citalopra m 20 mg tablet 08/18 completed Not Available Not Available Not Available lithium carbonate 300 mg capsule 11/12 completed Not Available Not Available Not Available benzonata te 100 mg capsule 08/12 completed Not Available Not Available Not Available divalproe x ER 500 mg tablet,ex tended release 24 hr 08/18 completed Not Available Not Available Not Available polymyxin B sulfate 10,000 unit-trim ethoprim 1 mg/mL eye drops 08/12 completed Not Available Not Available Not Available gabapenti n 300 mg capsule 08/18 completed Not Available Not Available Not Available Provera 10 mg tablet Take 1 tablet every day by oral route at bedtime for 10 days. 08/06 completed Not Available Not Available Not Available mirtazapi ne 15 mg tablet 08/06 completed Not Available Not Available Not Available estradiol 0.0375 mg/24 hr semiweekl y transderm al patch Apply 1 patch twice a week by transder mal route. 08/18 completed Not Available Not Available Not Available propranol ol 20 mg tablet active Not Available Not Available Not Available fluticaso ne propionat e 50 mcg/actua tion nasal spray,kulwant pension active Not Available Not Available Not Available sertralin e 50 mg tablet 08/06 completed Not Available Not Available Not Available lamotrigi ne 100 mg tablet 08/06 completed Not Available Not Available Not Available progester one micronize d 100 mg capsule Take 1 capsule every day by oral route at bedtime. 08/12 completed Not Available Not Available Not Available buspirone 15 mg tablet 08/18 completed Not Available Not Available Not Available estradiol 0.025 mg/24 hr semiweekl y transderm al patch Apply 1 patch twice a week by transder mal route. 08/18 completed Not Available Not Available Not Available escitalop mckinley 10 mg tablet 08/06 completed Not Available Not Available Not Available escitalop mckinley 20 mg tablet 08/06 completed Not Available Not Available Not Available aripipraz ole 10 mg tablet 08/18 completed Not Available Not Available Not Available aripipraz ole 15 mg tablet 08/18 completed Not Available Not Available Not Available aripipraz ole 20 mg tablet active Not Available Not Available Not Available divalproe x ER 250 mg tablet,ex tended release 24 hr 08/18 completed Not Available Not Available Not Available aripipraz ole 5 mg tablet 08/18 completed Not Available Not Available Not Available bupropion HCl XL 150 mg 24 hr tablet, extended release 08/06 completed Not Available Not Available Not Available duloxetin e 30 mg capsule,d elayed release Take 2 capsules every day by oral route. 08/06 completed Not Available Not Available Not Available duloxetin e 60 mg capsule,d elayed release Take 1 capsule every day by oral route. 08/06 completed Not Available Not Available Not Available Flonase 08/06 completed Not Available Not Available Not Available Zyrtec 08/06 completed Not Available Not Available Not Available multivita min 08/12 completed Not Available Not Available Not Available BD Ultra-Fin e Short Pen Needle 31 gauge x 5/16 08/12 completed Not Available Not Available Not Available ProAir HFA 90 mcg/actua tion aerosol inhaler active Not Available Not Available Not Available peg 3350 240 gram-elec trolytes 22.72 gram-6.72 g-5.84 g powdr for soln 11/12 completed Not Available Not Available Not Available levothyro xine 25 mcg capsule Take 3 capsules every day by oral route. active Not Available Not Available No t Available Latuda 40 mg tablet 08/18 completed Not Available Not Available Not Available NovoTwist 32 gauge x 1/5 needle 08/12 completed Not Available Not Available Not Available Lo Loestrin Fe 1 MG-10 MCG /10 MCG, 1 Tablet daily, 1 Package, 10/09/19 14, Ref. x12. Active. active Not Available Not Available No t Available Latuda 20 mg tablet 08/18 completed Not Available Not Available Not Available Latuda 60 mg tablet 08/12 completed Not Available Not Available Not Available Soolantra 1 % topical cream 08/06 completed Not Available Not Available Not Available Saxenda 3 mg/0.5 mL (18 mg/3 mL) subcutane ous pen injector 08/06 completed Not Available Not Available Not Available Vitals Date Recorded Body height Body weight Body mass index (BMI) Systolic blood pressure Diastolic blood pressure Provider Name and Address Organization Details Last Updated DateTime 10/04/2016 157.48 cm 00804.03 g 32.7 kg/m2 128 mm[Hg] 84 mm[Hg] Debbie Jc (TERMED) [facility] 7 15:58:46 Date Recorded Body height Body mass index (BMI) Body weight Systolic blood pressure Diastolic blood pressure Provider Name and Address Organization Details Last Updated DateTime 11/12/2016 157.48 cm 33.9 kg/m2 23360.31 g 116 mm[Hg] 72 mm[Hg] Rocco Wood(Ter m) [facility] 7 15:50:27 Date Recorded Body height Body mass index (BMI) Body weight Systolic blood pressure Diastolic blood pressure Provider Name and Address Organization Details Last Updated DateTime 05/09/2017 157.48 cm 35.3 kg/m2 58611.33 g 120 mm[Hg] 70 mm[Hg] Sophiea Kearns (TERMED) [facility] 8 11:55:06 Date Recorded Body height Body mass index (BMI) Body weight Systolic blood pressure Diastolic blood pressure Provider Name and Address Organization Details Last Updated DateTime 08/12/2017 157.48 cm 34.7 kg/m2 47088.83 g 130 mm[Hg] 86 mm[Hg] Rosanna Ortiz (TERMED) [facility] 8 08:37:24 Date Recorded Body weight Body mass index (BMI) Body height Systolic blood pressure Diastolic blood pressure Provider Name and Address Organization Details Last Updated DateTime 08/18/2018 87216.36 g 35.6 kg/m2 157.48 cm 122 mm[Hg] 68 mm[Hg] Rocco Wood(Ter m) [facility] 9 08:41:53 Social History Question Answer Notes LastModified by Organizat ion Details LastModified Time Tobacco Smoking Status Never Smoker Rosanna Ortiz (TERMED) null, [facility] 09/28/2014 16:16:58 What Is Your Level Of Alcohol Consumption? None Information not available 09/23/2014 What Is Your Level Of Caffeine Consumption? 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 0 [email or web address] Information not available 08/01/2016 Children's Names/ 1 Tea 1987 Information not available 09/28/2014 Marital Status Informatio n not available 09/23/2014 What Was The Date Of Your Most Recent Tobacco Screening? 08/18/2018 Information not available 11/19/2018 Are You Sexually Active? No Information not available 09/28/2014 Sex: Unknown Functional Status Question Answer Note LastModified by Organization D etails LastModified Time What is your exercise level? None Information not available 09/23/2014 Mental Status None recorded. Family History Relationship Description Onset Age of this Age Resolved Age Notes LastModified by Organization Details LastModified Time Father Depressive disorder deceas ed suicid e, etoh [email or web address] Not available 02/17/2015 10:14:15 Maternal Aunt Malignant tumor of breast t x4, 2 1st cousin s; also ovaria n cancer in 3 matern al aunts and one first cousin [email or web address] Not available 02/17/2015 10:14:15 Maternal Aunt Malignant tumor of ovary Not available 2017 08:39:56 Maternal Uncle Malignant tumor of colon [email or web address] Not available 2014 10:14:15 Mother Chronic obstructive pulmonary disease deceas ed 62 [email or web address] Not available 02/17/2015 10:14:15 Mother No family history of Colon, Breast or Ovaria n CA in 1st degree relati ve. Not available 02/17/2015 10:14:15 Medical History Condition Response Psych- Depression Y Cardiology- High Cholesterol Y Endocrinology- Thyroid Problems Y Psych- Bipolar Disease Y Gynecological History Statement/Question Response Current Control Method: Menopause 10/08/2013 Date of Last Mammogram 08/26/2016 HPV Test Negative Date of LMP 07/28/2015 Post Menopausal Hormone Therapy User Pas t Use 12/21/2014 Date of last bone density Age at Menopause 50 Age at Menarche: 11 Sexually Active N Date of Last Colonoscopy 08/29/2016 Date of Last Pap Smear 08/06/2016 History of Abnormal PAP Y Obstetrics History GPAL:G 1 P 1 0 0 1 Type Value Multiple Births 0 Full Term 1 Induced 0 Spontaneous 0 Premature 0 Living 1 Ectopics 0 Total 1 Past Encounters Encounter ID Performer Location Encounter Start Date Encounter Closed Date Diagnosis/Indication Diagnosis SNOMED-CT Code Diagnosis ICD10 Code Diagnosis Note [id number] Temitope Parton [id number] [place] [address] 09/28/2014 16:00:00 09/28/2014 16:46:57 Perimenopausal disorder [id number] Chelsie has bled for nearly a month, although no bleeding today She will d/c ocp immediatel y and present form blood work to assess menopause in 2-4 weeks in addition, will obtain vaginal probe u/s in response to the bleeding [id number] Krys Watson [id number] [place] [address] 10/26/2014 08:51:54 10/26/2014 09:04:58 Perimenopausal disorder [id number] Chelsie has bled for nearly a month, although no bleeding today She will d/c ocp immediatel y and present form blood work to assess menopause in 2-4 weeks in addition, will obtain vaginal probe u/s in response to the bleeding [id number] [address] [place] [address] 11/09/2014 15:25:28 11/09/2014 16:45:23 Postmenopausal bleeding 73206586 SIS and emb performed SIS challengin g in acoustics and lack of distention . No obvious intracavit ophelia lesions. [id number] [address] [place] [address] 12/21/2014 10:31:45 12/21/2014 11:01:56 Gynecologic examination 58321690 Menopausal syndrome 350267786 suspect that progestero ne therapy will be indicated for dub [id number] MARLEEN ROME MD [id number] [facility] [address] [place] [address] 01/24/2015 13:52:40 01/24/2015 14:39:13 Dysfunctional uterine bleeding 13897214 Her original u/s showed a markedly thickened endometriu m (perimenop ausal) and endometria l biopsy negative but bleeding has recurred and I think she will be benefited by D&C She agrees and wants to proceed with scheduling . [id number] [facility] [address] [facility] [place] [address] 01/31/2015 08:01:48 01/31/2015 12:48:00 Dysfunctional uterine bleeding 25443070 N93.8 Her original u/s showed a markedly thickened endometriu m (perimenop ausal) and endometria l biopsy negative but bleeding has recurred and I think she will be benefited by D&C She agrees and wants to proceed with scheduling . [id number] [facility] [address] [place] [address] 02/17/2015 10:02:15 02/17/2015 10:27:22 Postoperative visit [id number] Z09 Uterine leiomyoma 686058 05 D25.9 submucosal on path Abnormal u terine bleeding [id number] 9100 N93.9 concerned that with proliferat jean claude endometriu m and submucosal fibroid that there will be recurrence of bleeding [id number] MARLEEN ROME MD [id number] [address] [place] [address] 08/06/2016 10:31:38 08/06/2016 11:42:29 Gynecologic examination [id number] Z01.419 Finding of body mass index [id number] Z68.31 Enter appropriat e Z68 code under add ICD-10 code below [id number] MARLEEN ROME MD [id number] [address] [place] [address] 10/04/2016 15:53:03 10/04/2016 16:19:53 Menopausal symptom [id number] N95.1 will start progestero ne in 4-6 weeks after stabilizin g on estrogenmi nivelle appears most cost effective, samples given, she will print voucher [id number] MARLEEN ROME MD [id number]_INY G [address] [facility],[address] [place] [address] 11/12/2016 15:33:01 11/12/2016 16:13:38 Menopausal symptom 60572137 N95.1 will start progestero ne in 4-6 weeks after stabilizin g on estrogenmi nivelle appears most cost effective, samples given, she will print voucher [id number] MARLEEN ROME MD [id number] [address] [place] [address] 05/09/2017 11:16:32 05/09/2017 12:27:39 Postmenopausal bleeding [id number] N95.0 Taking HRT appropriat elyMay need D&C, endometriu m markedly thickenedN o problems with previous EMBUltraso und and history reviewed [id number] MARLEEN ROME MD [id number]_LJQ [address] [place] [address] 08/12/2017 08:32:18 08/12/2017 09:06:09 Gynecologic examination [id number] Z01.419 Finding of body mass index 514308210 Z68.34 Enter appropriat e Z68 code under add ICD-10 code below Menopausal symptom 70855 002 N95.1 still spotting some with hormones, w/u negativewi ll lower estrogen dose to see if that alleviates spotting, if not, consider SIS or endosee [id number] MARLEEN ROME MD [id number] [address] [place] [address] 08/18/2018 08:30:12 08/18/2018 09:20:31 Gynecologic examination 83491399 Z01.419 pap not indicated due to co-testing off HRTwants mammo at [facility] Finding of body mass index 152033034 Z68.35 Enter appropriat e Z68 code under add ICD-10 code below Diabetes m ellitus screening [id number] Z13.1 Hyperlipid emia screening [id number] Z13.220 Thyroid di sorder screening 022932683 Z13.29 Health Concerns Section Related Observation LastModified by Organization Detai ls LastModified Time None Recorded Concern Status LastModified by Organization Details LastModified Time None Recorded Advance Directives Directive None Recorded Payers Encounter Date Sequence Insurance Name Policy Number Policy Barnard Covered Member ID Barnard Member ID Guarantor Name 10/04/2016 1 [place] BEFORE 04/28/2024 - STATE HEALTH PLAN (PPO) [id number] Kori Kent [id number] Chelsie Kent 11/12/2016 1 [place] 04/28/2024 - [employer] HE[employer] PLAN (PPO) [id number] Kori Kent [id number] Chelsie Kent 05/09/2017 1 [place]FORE 04/28/2024 - [employer] HEALTH PLAN (PPO) [id number] Kori Kent [id number] Chelsie Kent 08/12/2017 1 [place] BEFORE 04/28/2024 - [employer] HEALTH PLAN (PPO) [id number] Kori Kent [id number] Chelsie Kent 08/18/2018 1 [place] - [place]FORE 04/28/2024 - [facility] HE[facility] PLAN (PPO) [id number] Kori Kent [id number] Chelsie Kent Notes Date Note Type Note Provider Name and Address Organization Details Recorded Time 10/04/2016 text/html Menopausal Sympt oms ([facility])Reported bypatient.Referred By:self Presenting Symptomshot flashes;night sweats;fatigue;irrita bility;anxiety;depres sive symptoms;sleep disturbances;short term memory problems;difficulty with concentration * Severity:moderate; interferes with daily activities * Duration:1 years * Timing:Onset: gradual Current Treatment:nothing Previously Tried Treatments:nothing: no change * Context:desires treatment: yes; postmenopausal; current contraceptive control: None; personal history of breast cancer no; history of blood clotting disorders: no; liver disease: no; hypertension no; cardiac disease: no; history of gastric bypass: no; history of uterine cancer: noNotes:Was significant at annual earlier this year but have increased further and she is requesting treatment MARLEEN ROME MD [address] [place] [address],[facility], [place], [address], [facility] 10/04/2016 16:18:49 11/12/2016 text/html Menopausal Sympt oms ([facility])Reported bypatient.Referred By:self Presenting Symptomshot flashes;night sweats;fatigue;irrita bility;anxiety;depres sive symptoms;sleep disturbances;short term memory problems;difficulty with concentration * Severity:moderate; interferes with daily activities * Duration:1 years * Timing:Onset: gradual Current Treatment:nothing Previously Tried Treatments:nothing: no change * Context:desires treatment: yes; postmenopausal; current contraceptive control: None; personal history of breast cancer no; history of blood clotting disorders: no; liver disease: no; hypertension no; cardiac disease: no; history of gastric bypass: no; history of uterine cancer: noNotes:Was significant at annual earlier this year but have increased further and she is requesting treatment 11/12/2016: Here for f/u on menopausal symptoms and hrt. Pt states improvement with treatment. Hot flashes have lessened. All previous symptoms have improved.Did have some bleeding MARLEEN ROME MD [address] [facility],[address], [place], [address], [facility] 11/12/2016 16:39:24 05/09/2017 text/html Abnormal Bleedin g ([facility])Reported bypatient.LMP: Menstrual HistoryNone * Quality:spotting; heavy; passing clots * Severity:moderate; severity scale 8; 2 pads/tampons used per day; changing pad/tampon every 4 hours; does not interfere with daily activities * Duration:days; 6 to 9 months * Timing:Onset: sudden; intermittent; postmenopausal * Context:first episode; current HRT use Yes; history of bleeding disorders Diagnostic TestingPAP smear up to date: Yes normal * Associated Signs & Symptomsno fever;fatigue; no fatigue; no changes in eating habits; no changes in exercise pattern; no recent illness; no shortness of breath; no chest pain; no dizziness; no pelvic pain; no intolerance to cold; no intolerance to heat; no painful periods; no hot flashes; no painful intercourse; no stressNotes:Pt had U/S today; Uterus appears enlarged with multiple fibroids seen. The largest measuring 34.2 x 42.7 x 33.3 mm. Bilateral ovaries appear within normal limits. Endometrium appears thickened measuring 23 mm. Pt has c/o abnormal bleeding spotting, heavy and passing clots intermittent for the pass 6 to 9 monthsTaking her hrt as prescribed, needs EMB due to thickened endometriumHad EMB 2014 with proliferative endometrium MARLEEN ROME MD [address] [facility],[address], [place], [address], [facility] 05/09/2017 14:02:21 08/12/2017 text/html Annual Postmenop ausal ([facility])Reported bypatient.Patient Relationship To Practice:established patient Current Medical History:active medical problems ; no recent surgeries or hospitalizations Relevant Family History:no family history of breast cancer; no family history of ovarian cancer; no family history of uterine cancer; no family history of colon cancer Menopausal Symptoms:not present HRT:patch Vaginal Bleeding:yes: cyclic Sexually Active:No: by choice Health/Prevention:Exe rcise: no; Vitamin D: no; Adequate Calcium Intake: no; Breast Self Exam: no; Tobacco Use: no Mammogram:due Pap Smear +/- HPV Cotesting:up-to-date Thyroid/Lipid Screening:up-to-date Colonoscopy:up-to-luz maria e Bone Density Study:not applicable Patient has:Primary Care Physician: yes; Flat Finisher: no; Production Machinist:Notes:p t. has fasting labs with PCP.pt. c/o vaginal bleeding. MARLEEN ROME MD [address] [facility],[address], [place], [address], [facility] 08/12/2017 17:47:52 08/18/2018 text/html Annual Postmenop ausal ([facility])Reported bypatient.Patient Relationship To Practice:established patient Current Medical History:active medical problems stable Relevant Family History:family history of breast cancer;family history of ovarian cancer;family history of colon cancer; no family history of uterine cancer Menopausal Symptoms:Present: mild HRT:not currently on HRT Sexually Active:No: no current relationship Health/Prevention:Exe rcise: no; Breast Self Exam: no; Tobacco Use: no Mammogram:due Pap Smear +/- HPV Cotesting:up-to-date Thyroid/Lipid Screening:due Colonoscopy:up-to-luz maria e Bone Density Study:not applicable Patient has:Primary Care Physician: yes; Production Machinist: noNotes:Pt due for labs and PCP deferred those to us.Off all HRT for 6-7 months and doing well. No bleeding since going off. Was btb frequently on HRT. MARLEEN ROME MD [address] [facility],[address], [place], [address], [facility] 08/18/2018 09:18:32 OBGyn Episode No OBEpisode recorded.
--- OUTSIDE RECORDS SUMMARY | 2024-06-22 08:22 | XMS_ITS | Clinical Summary ---
Author Organization [facility] Address [address] [place] [address] Phone Care Team Providers Care Capital Equipment Specialist Name Role Phone Unavailable Primary Care Provider Unavailabl e Allergies No known active allergies Medications cetirizine (ZyrTEC) 10 mg tablet Take 10 mg by mouth. Active fluticasone propionate (FLONASE) 50 mcg/spray [place], Suspension nasal inhaler 1 [place] daily at bedtime. Active levothyroxine 25 mcg tablet Take 25 mcg by mouth daily in the morning. Active atorvastatin (LIPITOR) 20 mg tablet Take 20 mg by mouth. 11/16/2018 Active lamoTRIgine (LaMICtal) 150 mg tablet Take 150 mg by mouth daily at bedtime. Active propranoloL (INDERAL) 10 mg tablet TAKE 1 TABLET BY MOUTH TWICE DAILY DIRECTED 12/05/2022 Active topiramate (TOPAMAX) 25 mg tablet Take 25 mg by mouth 2 times daily. 12/12/2022 Active sertraline (ZOLOFT) 100 mg tablet TAKE 2 TABLETS BY MOUTH EVERY DAY IN THE MORNING 12/17/2022 Active fenofibrate micronized (LOFIBRA) 134 mg Capsule Take 134 mg by mouth daily. 12/17/2022 Active famotidine (PEPCID) 20 mg tablet Take 20 mg by mouth daily. 11/16/2022 Active amphetamine-dex troamphetamine (ADDERALL XR) 20 mg Extended Release 24 hour capsule TAKE 1 CAPSULE BY MOUTH EVERY DAY IN THE MORNING 12/16/2022 Active Vraylar 1.5 mg Capsule capsule TAKE ONE CAPSULE BY MOUTH EVERY MORNING. 12/12/2022 Active busPIRone (BUSPAR) 10 mg tablet TAKE 1 TABLET BY MOUTH THREE TIMES DAILY WITH MEALS 12/05/2022 Active Active Problems No known active problems Encounters Date Type Department Care Team Description 05/20/2024 External Device Data STL ABSTRACTION Provider, Abstract from Last 3 Months Social History Tobacco Use Types Packs/Day Years Used Date Smoking Tobacco: Never Smokeless Tobacco: Never Alcohol Use Standard Drinks/Week Comments Yes 0 (1 standard drink = 0.6 oz pur e alcohol) Comments No Sex and Gender Information Value Date Recorded Sex Assigned at Not on file Legal Sex Female 2:50 PM CDT Gender Identity Not on file Sexual Orientation Not on file Last Filed Vital Signs Vital Sign Reading Time Taken Comments Blood Pressure 126/88 03/13/2023 10:23 AM ISOBUTYLENE OPERATOR CHIEF Pulse - - Temperature - - Respiratory Rate - - Oxygen Saturation - - Inhaled Oxygen Concentration - - Weight 93.4 kg (206 lb) 03/13/2023 10:23 AM ISOBUTYLENE OPERATOR CHIEF Height 157.5 cm (5' 2 ) 11/06/2020 9:57 AM CDT Body Mass Index 37.68 11/06/2020 9:57 AM CDT Plan of Treatment Health Maintenance Due Date Last Done Comments DTAP/TDAP/TD VACCINES (1 - Tdap) 09/04/1983 HEPATITIS B VACCINES (1 of 3 - 19+ 3-dose series) 09/04/1983 COLORECTAL SCREENING 2009 Colorectal Cancer Screening 2009 FIT-DNA Q 3 years 2009 FIT/FOBT Q 1 year 2009 Flex Sig/CT Colonography Q 5 years 2009 ZOSTER VACCINE (1 of 2) 2014 INFLUENZA VACCINE (#1) 2023 06/19/2018 BREAST CANCER SCREENING 03/07/2024 03/07/2023, 02/03 CERVICAL CANCER SCREENING 01/27/2026 01/27/2023, 03/2021 Procedures Procedure Name Priority Date/Time Associated Diagnosis Comments MAMMO 3D JEYSON DIAGNOSTIC BILAT W OR WO CAD Routine 03/07/2023 11:03 AM ISOBUTYLENE OPERATOR CHIEF Abnormal mammogram of both breasts CERV/VAG CYTO SCREEN PAP W/HPV Routine 01/27/2023 1:24 PM CDT Screening for malignant neoplasm of cervix from Last 3 Months or Most Recently Relevant to Health Maintenance Results * MAMMO DIAG BILAT 3D JEYSON W OR WO CAD (03/07/2023 11:03 AM ISOBUTYLENE OPERATOR CHIEF) Anatomical Region Laterality Modality Breast Bilateral Mammography 03/07/2023 11:0 3 AM ISOBUTYLENE OPERATOR CHIEF Impressions 03/07/2023 3:02 PM ISOBUTYLENE OPERATOR CHIEF IMPRESSION: Negative spot tomographic images of both breasts. RECOMMENDATIONS: Recommend annual mammographic follow-up. OVERALL FINAL ASSESSMENT: BI-RADS CATEGORY 1 - Negative. DICTATION LOCATION: [facility] 03/07/2023 3:02 PM ISOBUTYLENE OPERATOR CHIEF MAMMO DIAG BILAT 3D JEYSON W OR WO CAD DATE: 03/07/2023 11:03 AM HISTORY: Abnormal screening exam. FINDINGS: Patient had a screening mammogram on 02/03/2023 which demonstrated asymmetric densities in the subareolar regions bilaterally. She returns for further imaging with bilateral mediolateral views and bilateral spot views all with tomography. Low Dose full field Digital Breast tomosynthesis examination was performed with 2D and 3D acquisitions. Examination is read in conjunction with computer aided detection. On the follow-up images, this asymmetry is less pronounced. No underlying mass or distortion is identified. Overall findings are unchanged from 2014. Procedure Note Shruthi Garcia MD - 03/07/2023 MAMMO DIAG BILAT 3D JEYSON W OR WO CAD DATE: 03/07/2023 11:03 AM HISTORY: Abnormal screening exam. FINDINGS: Patient had a screening mammogram on 02/03/2023 which demonstrated asymmetric densities in the subareolar regions bilaterally. She returns for further imaging with bilateral mediolateral views and bilateral spot views all with tomography. Low Dose full field Digital Breast tomosynthesis examination was performed with 2D and 3D acquisitions. Examination is read in conjunction with computer aided detection. On the follow-up images, this asymmetry is less pronounced. No underlying mass or distortion is identified. Overall findings are unchanged from 2015. IMPRESSION: Negative spot tomographic images of both breasts. RECOMMENDATIONS: Recommend annual mammographic follow-up. OVERALL FINAL ASSESSMENT: BI-RADS CATEGORY 1 - Negative. DICTATION LOCATION: [facility] us Erik Pabon MD MAMMO ORDERABLES Final Resul t * CERV/VAG CYTO SCREEN PAP W/HPV (01/27/2023 1:24 PM CDT) CLINICAL INFORMATION [facility] Comment:None given LAST MENSTRUAL PERIOD [facility] Comment:NONE GIVEN PREV PAP: [facility] Comment:NONE GIVEN PREV BX: [facility] Comment:NONE GIVEN SOURCE [facility] Comment:ENDOCERVIX ADEQUACY: [facility] Comment: Satisfactory for evaluation. Endocervical/transformation zone component present. PAP INTERP [facility] Comment: Cytology Results: Negative for intraepithelial lesion or malignancy. COMMENT (PAP TEST) Q uest [facility] [place] Comment: This Pap test has been evaluated with computer assisted technology. GARMENT FITTER: Melly est Sly [place] Comment: IVONEYOHANNES(ASCP) CT screening location: [place] [address] [place] [address] EXPLANATORY NOTE Que [facility] [place] Comment: EXPLANATORY NOTE: The Pap is a screening test for cervical cancer. It is not a diagnostic test and is subject to false negative and false positive results. It is most reliable when a satisfactory sample, regularly obtained, is submitted with relevant clinical findings and history, and when the Pap result is evaluated along with historic and current clinical information. HPV E6/E7 Not Detected Not Detected [facility] [place] Comment: Methodology: Order Packer-Mediated Amplification This assay detects E6/E7 viral messenger RNA (mRNA) from 14 high-risk HPV types (16,18,31,33,35,39,45,51,52,56,58,59,66,68). Cervical sources are required for HPV testing. If a vaginal source from a patient who has had a total hysterectomy with removal of cervix was submitted, please contact the testing laboratory for alternative testing options. For additional information, please refer to http://education.PicsaStock/faq/EGJ547t7 (This link if provided for information/ educational purposes only.) Test Performed at: [facility] [address] [place] [address] Cuate Dimas PhD SL Genital SWAB OF ENDOCERVIX / Unknown 01/27/2023 1:24 PM CDT 01/27/2023 10:35 PM CDT us Erik Pabon MD PATHOLOGY/CYTOLOGY ORDERABLE S Final Result [facility] [phone] [facility] [address] [phone] from Last 3 Months or Most Recently Relevant to Health Maintenance Insurance [facility] CHOICE [id number]
--- OUTSIDE RECORDS SUMMARY | 2024-06-22 08:22 | XMS_ITS | Data Portability ---
Author Organization [facility], [facility] Address [address] [place] [address] Care Team Providers Care Marketing Professor Name Role Phone KIM ALMAGUER Primary Care Provider JULIO CÉSAR TURPIN Orthopedist Assessment Encounter Date Assessment Date Assessment LastModified by Organization Details LastModified Time 12/08/2017 12/08/2017 IMPRESSION: Left Subacromial decompression and manipulation. DATE OF SURGERY : September 12 PLAN: We discussed the treatment plan for this point post op with the patient. They may discontinue formal physical therapy. They may begin a light strengthening program. They should still avoid overhead reaching and lifting. They will need to continue to avoid heavy exertional activity with the shoulder. Follow up with me in a few weeks. [email or web address] Not available 12/08/2017 15:38:57 01/19/2018 01/19/2018 RADIOGRAPHS: Right Shoulder-Consiste nt with a well aligned glenohumeral joint with the humeral head seated appropriately in the glenoid. No glenohumeral degenerative changes. The AC joint is normal. The acromion is downturned. Bony mineralization is normal. IMPRESSION : Right Shoulder Adhesive Capsulitis Status post left shoulder arthroscopy and manipulation PLAN : The patient and I went over the plan now for their stiff shoulder. We have elected to inject her subacromial space. We asked her to start exercising her right shoulder as well. We will see the patient back in a few weeks. [email or web address] Not available 01/19/2018 19:27:01 02/16/2018 02/16/2018 . IMPRESSION : Right shoulder adhesive capsulitis Post left arthroscopy and manipulation PLAN: We will proceed with an MRI of the right shoulder. We will see her back after study. [email or web address] Not available 02/16/2018 18:27:11 03/04/2018 03/04/2018 IMPRESSION: Tae perkins Shoulder Impingement. PLAN: I discussed with her different treatment options to manage their persistent pain and recent MRI findings today. Their exam and imaging studies are consistent with a significant bony impingement and adhesive capsulitis. We discussed the procedure may be just arthroscopic or may include a mini open repair. We also discussed various methods of treatment for this diagnosis, including both non-surgical and surgical treatment options. The procedure was discussed in detail, including rationale for proceeding with the procedure, specifics of the technical aspects of the procedure, and the expected postoperative course including the possible need for activity modification, therapy, and duration of expected recovery. Complications, including blood loss and potential need for transfusion, nerve injury, infection, success rates (expected outcomes) of the procedure, and risk of from anesthesia were discussed. At the time of surgery other indicated procedures may be performed, such as a biceps tenodesis ect. Shevoiced understanding of the procedure and risks, and the decision for surgery was made today. [email or web address] Not available 03/04/2018 18:33:02 04/10/2018 04/10/2018 IMPRESSION: Recovering following shoulder arthroscopy and Biceps tenodesis. Date of Surgery : April 03 PLAN: The patient was given a physical therapy referral, the therapist will guide their sling wear. They will wean off narcotics. They will use plain Tylenol or NSAID's if able to control their pain. Questions about their surgery were invited and answered. She will follow up with me in 6 weeks. [email or web address] Not available 04/10/2018 17:01:10 Plan of Treatment Reminders Order Date Submit Date Provider Last Modified By Organization Details Last Modified Time Details Appointments None recorded. Lab None recorded. Referral physical therapist referral - SLAP tear [email or web address] [facility], [address] [place], [address], 8 11:02:00 Procedures None recorded. Surgeries None recorded. Imaging MRI, shoulder, w/o contrast 2017 018 [facility], [address] [place], [address], 8 14:52:02 XR, shoulder, 2 or more view [email or web address] [facility], [address] [place], [address], 8 19:11:50 Medication Orders None recorded. Patient TargetsNo targets recorded. Patient InstructionsNo instructions recorded. Reason for Referral Physical Therapist Referral for Adhesive capsulitis of shoulder SLAP tear Referring Physician: Julio César Turpin, Orthopedic Surgery, Encounter Date: 04/10/2018 Results Created Date Observation Date Name Description Value Unit Range Abnormal Flag Note LastModifiedBy Organization Detail LastModifiedTime 01/20/20 18 01/19/2018 XR, shoul ana, 2 or more view No observ ation record ed. INTERFACE [facility] [address] [place], [address], 01/19/2018 15:02:07 02/28/20 18 02/27/2018 MRI, shoul ana, w/o contr ast No observ ation record ed. Not Available 2017 08:25:52 Result Notes None recorded. Problems Name Problem SNOMED Code Status Onset Date Resolution Date Notes Provider Name and Address Organization Details Recorded Time Pain of left shoulder joint 080803922638366 09 Active 2017 Radha Alarcon [facility], [place] - [facility] 8 14:46:29 Problem Notes None recorded. Procedures Surgical History Date Name Laterality Status Provider Name and Address Organization Details Recorded Time 04/03/20 18 ARTHROSCOPIC, LABRAL REPAIR (SURG) completed Not Available [facility] 04/09/2018 08:48:41 01/20/20 18 54589: Asp/Inj - [id number] ee completed Radha Alarcon [place] - [facility] 01/19/2018 15:46:06 12/05/19 18 36810: Therapeutic Exercise completed Mariangel Rojas, LEVERMAN [address] [place], [address], [place] - [facility] 12/04/2017 08:55:05 12/05/19 18 74086: Manual Therapy completed Mariangel Post, LEVERMAN [address] [place], [address], [place] - [facility] 12/04/2017 08:55:05 12/03/19 18 85625: Therapeutic Exercise completed Mariangel Post, LEVERMAN [address] [place], [address], [place] [facility] 12/02/2017 12:00:07 12/03/19 18 95680: Manual Therapy completed Mariangel Post, LEVERMAN [address] [place], [address], [place] [facility] 12/02/2017 12:00:07 12/03/19 18 99290: Moist Heat/ Cold Pack completed Mariangel Post, LEVERMAN [address] [place], [address], [facility] [place] [facility] 12/02/2017 12:03:08 11/27/19 18 14621: Therapeutic Exercise completed Mariangel Post, LEVERMAN [address] [place], [address], [place] [facility] 11/26/2017 08:03:44 11/27/19 18 71894: Manual Therapy completed Mariangel Post, LEVERMAN [address] [place], [address], [facility] [facility] 11/26/2017 08:03:44 11/25/19 18 79731: Therapeutic Exercise completed Rodo Lozoya, PT [address] [place], [address], [place] [facility] 11/24/2017 11:24:06 11/25/19 18 12078: Manual Therapy completed Rodo Lozoya, PT [address] [place], [address], [place] [facility] 11/24/2017 11:24:06 11/25/19 18 61520: Moist Heat/ Cold Pack completed Rodo Lozoya, PT [address] [place], [address], [facility] [place] [facility] 11/24/2017 11:24:06 11/20/19 18 04692: Therapeutic Exercise completed Mariangel Post, LEVERMAN [address] [place], [address], [place] [facility] 11/19/2017 08:45:10 11/20/19 18 29749: Manual Therapy completed Mariangel Post, LEVERMAN [address] [place], [address], [place] [facility] 11/19/2017 08:45:10 11/20/19 18 81833: Moist Heat/ Cold Pack completed Mariangel Post, LEVERMAN [address] [place], [address], [place] [facility] 11/19/2017 08:45:10 11/18/19 18 36231: Therapeutic Exercise completed Rodo Lozoya, PT [address] [place], [address], [place] [facility] 11/18/2017 07:47:56 11/18/19 18 06708: Manual Therapy completed Rodo Lozoya, PT [address] [place], [address], [place] [facility] 11/18/2017 07:47:56 11/18/19 18 03714: Moist Heat/ Cold Pack completed Rodo Lozoya, PT [address] [place], [address], [place] [facility] 11/18/2017 07:47:56 11/15/19 18 27751: Therapeutic Exercise completed Mariangel Post, LEVERMAN [address] [place], [address], [place] [facility] 11/14/2017 10:12:22 11/15/19 18 64161: Manual Therapy completed Mariangel Post, LEVERMAN [address] [place], [address], [place] [facility] 11/14/2017 10:12:22 11/15/19 18 84431: Moist Heat/ Cold Pack completed Mariangel Post, LEVERMAN [address] [place], [address], [place] [facility] 11/14/2017 10:12:22 11/12/19 18 80141: Therapeutic Exercise completed Mariangel Post, LEVERMAN [address] [place], [address], [place] [facility] 11/11/2017 08:42:28 07/17/20 18 44768: Manual Therapy completed Mariangel Rojas, LEVERMAN [address] [place], [address], [place] [facility] 11/11/2017 08:42:28 11/12/19 18 03829: Moist Heat/ Cold Pack completed Mariangel Rojas, LEVERMAN [address] [place], [address], [place] [facility] 11/11/2017 08:50:02 11/08/19 18 22138: Therapeutic Exercise completed Rodo Lozoya, PT [address] [place], [address], [place] [facility] 11/07/2017 15:25:04 11/08/19 18 29201: Manual Therapy completed Rodo Lozoya, PT [address] [place], [address], [place] [facility] 11/07/2017 15:25:04 11/06/19 18 41073: Therapeutic Exercise completed Rodo Lozoya, PT [address] [place], [address], [place] [facility] 11/05/2017 19:55:48 11/06/19 18 06997: Manual Therapy completed Rodo Lozoya, PT [address] [place], [address], [place] [facility] 11/05/2017 19:55:48 10/31/19 18 32487: Therapeutic Exercise completed Rodo Lozoya, PT [address] [place], [address], [place] [facility] 10/30/2017 08:42:41 10/31/19 18 86325: Manual Therapy completed Rodo Lozoya, PT [address] [place], [address], [place] [facility] 10/30/2017 08:42:41 10/29/19 18 58013: Therapeutic Exercise completed Rodo Lozoya, PT [address] [place], [address], [place] [facility] 10/28/2017 10:07:35 10/29/19 18 77909: Manual Therapy completed Rodo Lozoya, PT [address] [place], [address], [place] [facility] 10/28/2017 10:07:35 10/25/19 18 94896: Therapeutic Exercise completed Mariangel Post, LEVERMAN [address] [place], [address], [place] [facility] 10/24/2017 10:50:30 10/25/19 18 16636: Manual Therapy completed Mariangel Post, LEVERMAN [address] [place], [address], [place] [facility] 10/24/2017 10:50:30 10/25/19 18 25341: Moist Heat/ Cold Pack completed Mariangel Post, LEVERMAN [address] [place], [address], [place] [facility] 10/24/2017 10:50:30 10/21/19 18 13655: Therapeutic Exercise completed Mariangel Post, LEVERMAN [address] [place], [address], [place] [facility] 10/20/2017 16:59:51 10/21/19 18 60669: Manual Therapy completed Mariangel Post, LEVERMAN [address] [place], [address], [place] [facility] 10/20/2017 16:59:51 10/21/19 18 36435: Moist Heat/ Cold Pack completed Mariangel Post, LEVERMAN [address] [place], [address], [place] [facility] 10/20/2017 16:59:51 10/17/19 18 85386: Therapeutic Exercise completed Rodo Lozoya, PT [address] [place], [address], [place] [facility] 10/16/2017 09:13:38 10/17/19 18 24379: Manual Therapy completed Rodo Lozoya, PT [address] [place], [address], [place] [facility] 10/16/2017 09:13:38 10/17/19 18 15232: Moist Heat/ Cold Pack completed Rodo Lozoya, PT [address] [place], [address], [place] [facility] 10/16/2017 09:13:38 10/14/19 18 28816: Therapeutic Exercise completed Mariangel Post, LEVERMAN [address] [place], [address], [place] [facility] 10/13/2017 15:56:45 10/14/19 18 17096: Manual Therapy completed Mariangel Rojas, LEVERMAN [address] [place], [address], [place] [facility] 10/13/2017 15:56:45 10/14/19 18 69750: Moist Heat/ Cold Pack completed Mariangel Rojas, LEVERMAN [address] [place], [address], [place] [facility] 10/13/2017 15:56:45 10/10/19 18 52452: Therapeutic Exercise completed Rodo Lozoya, PT [address] [place], [address], [place] [facility] 10/09/2017 19:03:54 10/10/19 18 00968: Manual Therapy completed Rodo Lozoya, PT [address] [place], [address], [place] [facility] 10/09/2017 19:03:54 10/10/19 18 75441: Moist Heat/ Cold Pack completed Rodo Lozoya, PT [address] [place], [address], [place] [facility] 10/09/2017 19:03:54 10/07/19 18 50309: Therapeutic Exercise completed Rodo Lozoya, PT [address] [place], [address], [place] [facility] 10/06/2017 19:45:08 10/07/19 18 04119: Manual Therapy completed Rodo Lozoya, PT [address] [place], [address], [place] [facility] 10/06/2017 19:45:03 10/07/19 18 61073: Moist Heat/ Cold Pack completed Rodo Lozoya, PT [address] [place], [address], [place] [facility] 10/06/2017 19:45:13 10/04/19 18 96795 PT eval low complexity completed Rodo Lozoya, PT [address] [place], [address], [place] - [facility] 10/04/2017 06:32:04 10/04/19 18 48994: Therapeutic Exercise completed Rodo Lozoya, PT [address] [place], [address], [facility] 10/04/2017 06:32:01 10/04/19 18 79014: Manual Therapy completed Rodo Lozoya, PT [address] [place], [address], [facility] 10/04/2017 06:31:59 07/15/19 18 95186: Asp/Inj - gzwgjxka-tnj-tq ee completed [place] - [facility] 07/14/2017 15:20:57 Caesarian section completed [place] - [facility] 07/14/2017 14:46:53 Imaging Results Imaging Date Name Status LastModified by Organiz ation Details LastModified Time 01/19/2018 XR, shoulder, 2 or more view [facility], [address], 01/19/2018 15:02:07 02/27/2018 MRI, shoulder, w/o contrast completed Information not available 03/02/2018 08:25:52 Procedure Notes None recorded. Medical Equipment None Reported. Allergies Allergen ID Allergen Name Allergen Category Reaction Reaction Severity Criticality Documentation Date Start Date Code Code System Note Provider Name and Address Organization Details Recorded Time 723599 house dust allergeni c extract environme nt,medica tion Not available Not available Not available 07/14/2017 80474 9 RxNorm Not Available Not Available Not Available 017236 animal dander environme nt Not available Not available Not available 07/14/2017 93069 UNK Not Available Not Available Not Available 854074 ethinyl estradiol / levonorge strel medicatio n Not available Not available Not available 07/14/2017 47063 8 RxNorm Not Available Not Available Not Available Medications Name Sig Start Date Stop Date Status Note LastModified by Organization Details LastModified Time lamotrigine 150 mg tablet once daily active Not Available Not Available No t Available primidone 50 mg tablet 10/27 completed Not Available Not Available Not Available gabapentin 600 mg tablet active Not Available Not Available No t Available atorvastatin 20 mg tablet once daily active Not Available Not Available No t Available lamotrigine 200 mg tablet 07/14 completed Not Available Not Available Not Available trazodone 50 mg tablet 07/14 completed Not Available Not Available Not Available atorvastatin 10 mg tablet 10/27 completed Not Available Not Available Not Available Lidocaine Viscous 2 % mucosal solution 07/14 completed Not Available Not Available Not Available medroxyprogest erone 2.5 mg tablet 02/16 completed Not Available Not Available Not Available propranolol ER 60 mg capsule,24 hr,extended release once daily active Not Available Not Available No t Available estradiol 0.05 mg/24 hr semiweekly transdermal patch 07/14 completed Not Available Not Available Not Available levothyroxine 75 mcg tablet once daily active Not Available Not Available No t Available oxycodone-acet aminophen 5 mg-325 mg tablet active Not Available Not Available Not Available citalopram 20 mg tablet 12/08 completed Not Available Not Available Not Available lithium carbonate 300 mg capsule 07/14 completed Not Available Not Available Not Available benzonatate 100 mg capsule 07/14 completed Not Available Not Available Not Available divalproex ER 500 mg tablet,extende d release 24 hr once daily 04/10 completed Not Available Not Available Not Available polymyxin B sulfate 10,000 unit-trimethop rim 1 mg/mL eye drops 07/14 completed Not Available Not Available Not Available gabapentin 300 mg capsule 04/10 completed Not Available Not Available Not Available estradiol 0.0375 mg/24 hr semiweekly transdermal patch 10/27 completed Not Available Not Available Not Available propranolol 20 mg tablet once daily active Not Available Not Available No t Available fluticasone propionate 50 mcg/actuation nasal spray,suspensi on once daily active Not Available Not Available No t Available progesterone micronized 100 mg capsule 10/27 completed Not Available Not Available Not Available buspirone 15 mg tablet once daily active Not Available Not Available No t Available estradiol 0.025 mg/24 hr semiweekly transdermal patch once daily 04/10 completed Not Available Not Available Not Available aripiprazole 10 mg tablet 02/16 completed Not Available Not Available Not Available aripiprazole 15 mg tablet once daily active Not Available Not Available No t Available aripiprazole 20 mg tablet active Not Available Not Available Not Available divalproex ER 250 mg tablet,extende d release 24 hr 10/27 completed Not Available Not Available Not Available aripiprazole 5 mg tablet 12/08 completed Not Available Not Available Not Available ProAir HFA 90 mcg/actuation aerosol inhaler once daily 04/10 completed Not Available Not Available Not Available peg 3350 240 gram-electroly joey 22.72 gram-6.72 g-5.84 g powdr for soln 07/14 completed Not Available Not Available Not Available Latuda 40 mg tablet 10/27 completed Not Available Not Available Not Available Latuda 20 mg tablet 10/27 completed Not Available Not Available Not Available Latuda 60 mg tablet 07/14 completed Not Available Not Available Not Available Vitals Date Recorded Body height Provider Name an d Address Organization Details Last Updated DateTime 12/08/2017 157.48 cm Willian Langley [facility] 0 12/08/2017 15:17:43 Social History Question Answer Notes LastModified by Organizat ion Details LastModified Time Tobacco Smoking Status Never Smoker Radha Alarcon [place], [place] - [facility] 07/14/2017 14:46:42 Do You Have An Advance Directive? No Information not available 07/14/2017 Do You Have A Medical Power Of Brush Worker? No Information not available 07/14/2017 What Was The Date Of Your Most Recent Tobacco Screening? 12/08/2017 Information not available 11/19/2018 Has Tobacco Cessation Counseling Been Provided? Yes Information not available 07/14/2017 On What Date Was Tobacco Cessation Counseling Provided? 12/08/2017 [email or web address] Information not available 12/08/2017 Sex: Unknown Functional Status None recorded. Mental Status None recorded. Family History Relationship Description Onset Age of this Age Resolved Age Notes LastModified by Organization Details LastModified Time Mother History of carcinoma Not available 2017 14:46:38 Medical History Condition Response HIV or AIDS N None N Leukemia N Irregular Heartbeat N MRSA N Mouth Sores N Previous Oral Steroid(s) N Sexually Transmitted Disease N Lung Disease N COPD N Depression Y Bipolar N Patient reports no significant medical h istory N Pacemaker N Sickle Cell Anemia N Colitis/Stomach Ulcers N Congestive Heart Failure N Anxiety Disorder Y Dizziness N Thyroid Problems/Goiter Y Cancer N Chest Pain/Angina N Stroke N Stroke/TIA N High Cholesterol Y Previous Cortisone Injection(s) N Loss of Consciousness N Rheumatoid Arthritis N Fibromyalgia N Headaches N Swelling of Legs/Feet/Hands N Kidney Disease N Heart Problems N Osteoarthritis N Parkinson's Disease N Migraines N Bleed or Bruise Easily N ADD/ADHD N Lupus/SLE N Joint Pain N Weight loss N Anemia N Eye Disease/Cataracts/Glaucoma N Poor Circulation N Previous Fracture(s) N Diabetes N Hepatitis/Liver Disease N Bleeding Disorder N Seizures/Epilepsy N Urinary Infection N Tuberculosis N Other: N Asthma N Excessive Thirst N Chronic Back Pain N Drug dependency/Abuse N Psoriasis N Sleep apnea Y Autism N Numbness/Tingling N GERD/Reflux N Pulmonary Embolis N GI Issues Specify: N Hypertension N Osteoporosis N Gynecological HistoryNo gynecological history recorded. Obstetrics History GPAL:G 0 P 0 0 0 0 Past Encounters Encounter ID Performer Location Encounter Start Date Encounter Closed Date Diagnosis/Indication Diagnosis SNOMED-CT Code Diagnosis ICD10 Code Diagnosis Note [id number] Julio César Turpin MD [address] [place] [address] 07/14/2017 14:11:53 07/14/2017 15:35:50 Shoulder pain 56119754 M25.512 Adhesive c apsulitis of shoulder 629015889 M75.02 [id number] Julio César Turpin MD [address] [place], [place] [address]mem[address] [address] 08/18/2017 14:53:19 08/18/2017 16:10:48 Adhesive capsulitis of shoulder 345925652 M75.02 [id number] [facility] [address] 09/19/2017 15:27:22 09/19/2017 16:17:06 Adhesive capsulitis of shoulder 596190144 M75.02 [id number] Rodo Lozoya, PT [facility] [address] [place] [address] 10/03/2017 13:01:28 10/07/2017 15:05:58 Shoulder stiff 146392214 M25.619 Adhesive c apsulitis of shoulder 862697316 M75.02 Shoulder pain 11677605 M 25.547 [id number] Rodo Lozoya, PT [facility] [address] [place] [address] 10/06/2017 12:56:28 10/09/2017 11:27:02 Shoulder stiff 126551559 M25.619 Adhesive c apsulitis of shoulder 937527453 M75.02 Shoulder pain 00968040 M 25.206 [id number] Rodo Lozoya, PT [facility] [address] [place] [address] 10/09/2017 15:25:30 10/10/2017 15:31:27 Shoulder stiff 543016212 M25.619 Adhesive c apsulitis of shoulder 675046991 M75.02 Shoulder pain 38117532 M 25.466 [id number] Mariangel Rojas, L[facility] [place] [address] [place] [address] 10/13/2017 14:23:17 10/13/2017 16:03:04 Shoulder stiff 064422984 M25.619 Adhesive c apsulitis of shoulder 707563171 M75.02 Shoulder pain 09094308 M 25.939 [id number] Rodo Lozoya, PT [facility] [address] [place] [address] 10/16/2017 07:59:10 10/20/2017 17:26:10 Shoulder stiff 446069998 M25.619 Adhesive c apsulitis of shoulder 933583201 M75.02 Shoulder pain 20994245 M 25.575 [id number] Mariangel Rojas, [facility] [place] [address] [place] [address] 10/20/2017 16:05:32 10/20/2017 17:06:08 Shoulder stiff 703632976 M25.619 Adhesive c apsulitis of shoulder 891893078 M75.02 Shoulder pain 55346133 M 25.665 [id number] Mariangel Rojas, [facility] [address] [place] [address] 10/24/2017 08:40:49 10/24/2017 11:37:58 Shoulder stiff 923103673 M25.619 Adhesive c apsulitis of shoulder 781889495 M75.02 Shoulder pain 10790054 M 25.056 [id number] Julio César Turpin MD [facility] [address] [place], [place] [address] 10/27/2017 15:28:09 10/27/2017 16:16:17 Impingement syndrome of shoulder region 226665663 M75.42 [id number] Rodo Piperyd, PT [facility] [place] [address] [place] [address] 10/28/2017 08:47:58 10/30/2017 13:20:10 Shoulder stiff 012544590 M25.619 Adhesive c apsulitis of shoulder 295573921 M75.02 Shoulder pain 37717439 M 25.448 [id number] Rodo Lozoya, PT [facility] [address] [place] [address] 10/30/2017 08:00:02 10/31/2017 14:40:18 Shoulder stiff 253724092 M25.619 Adhesive c apsulitis of shoulder 865300279 M75.02 Shoulder pain 43512845 M 25.114 [id number] Rodo Lozoya, PT [facility] [address] [place] [address] 11/05/2017 15:34:10 11/06/2017 16:25:27 Shoulder stiff 668867153 M25.619 Adhesive c apsulitis of shoulder 293517760 M75.02 Shoulder pain 03225506 M 25.668 [id number] Rodo Lozoya, PT [facility] [address] [place] [address] 11/07/2017 14:59:10 11/10/2017 16:06:26 Shoulder stiff [id number] M25.619 Adhesive c apsulitis of shoulder 761868081 M75.02 Shoulder pain 38961346 M 25.256 [id number] Mariangel Rojas, LEVERMAN [facility] [address] [place] [address] 11/11/2017 08:04:41 11/11/2017 08:50:37 Shoulder stiff 451660315 M25.619 Adhesive c apsulitis of shoulder 634424302 M75.02 Shoulder pain 12442432 M 25.302 [id number] Mariangel Rojas, [facility] [facility] [address] [place] [address] 11/14/2017 08:46:49 11/14/2017 10:32:40 Shoulder stiff 867237732 M25.619 Adhesive c apsulitis of shoulder 060767060 M75.02 Shoulder pain 20785376 M 25.926 [id number] Rodo Lozoya, PT [facility] [address] [place] [address] 11/17/2017 08:43:15 11/19/2017 14:57:49 Shoulder stiff 825051356 M25.619 Adhesive c apsulitis of shoulder 820744567 M75.02 Shoulder pain 88986630 M 25.945 [id number] Mariangel Rojas, [facility] [address] [place] [address] 11/19/2017 08:03:44 11/19/2017 08:50:45 Shoulder stiff 509182498 M25.619 Adhesive c apsulitis of shoulder 892540850 M75.02 Shoulder pain 28545634 M 25.892 [id number] Rodo Lozoya, PT [facility] [address] [place] [address] 11/24/2017 08:00:55 11/27/2017 08:00:10 Shoulder stiff 239589783 M25.619 Adhesive c apsulitis of shoulder 679247541 M75.02 Shoulder pain 55026045 M 25.770 [id number] Mariangel Rojas, [facility] [address] [place] [address] 11/26/2017 08:00:32 11/26/2017 09:03:03 Shoulder stiff 587056154 M25.619 Adhesive c apsulitis of shoulder 497687754 M75.02 Shoulder pain 49575743 M 25.948 [id number] Mariangel Rojas, [facility] [address] [place] [address] 12/02/2017 07:59:35 12/02/2017 12:03:43 Shoulder stiff 632625508 M25.619 Adhesive c apsulitis of shoulder 313136050 M75.02 Shoulder pain 94807744 M 25.857 [id number] Mariangel Rojas, [facility] [address] [place] [address] 12/04/2017 08:03:18 12/04/2017 09:05:39 Shoulder stiff 404474707 M25.619 Adhesive c apsulitis of shoulder 020958844 M75.02 Shoulder pain 86986867 M 25.165 [id number] MD Frankie Mondragon [address] [address] 12/08/2017 14:53:23 12/08/2017 15:45:16 Impingement syndrome of shoulder region 528253117 M75.42 [id number] MD Frankie Mondragon [address] [address] 01/19/2018 14:48:03 01/19/2018 15:51:03 Shoulder pain 68747441 M25.511 Impingemen t syndrome of shoulder region 590577978 M75.42 M75.41 [id number] MD Frankie Mondragon [address] [address] 02/16/2018 15:47:50 02/16/2018 17:08:34 Impingement syndrome of shoulder region 663064031 M75.41 [id number] MD Frankie Mondragon [address] [address] 03/04/2018 14:58:44 03/04/2018 16:02:03 Pain of left shoulder joint 8795313224 0183176 M25.512 Adhesive c apsulitis of right shoulder 2630547337 02821 M75.01 Glenoid labrum tear 2022 96581 S43.431D Biceps tendinitis 639391 007 M75.21 [id number] Julio César Turpin MD -O-[address] [address] 04/10/2018 16:20:09 04/10/2018 17:06:31 Adhesive capsulitis of shoulder 568722628 M75.01 Health Concerns Section Related Observation LastModified by Organization Detai ls LastModified Time None Recorded Concern Status LastModified by Organization Details LastModified Time None Recorded Advance Directives Directive N: Payers Encounter Date Sequence Insurance Name Policy Number Policy Barnard Covered Member ID Barnard Member ID Guarantor Name 12/08/2017 1 [place] [id number] Kori Trujillonan [id number] Kori Trujillonan 01/19/2018 1 [place] [id number] Kori Trujillonan [id number] Kori Kent 02/16/2018 1 [place] [id number] Kori Trujillonan [id number] Kori Trujillonan 03/04/2018 1 [place] [id number] Kori Trujillonan [id number] Kori Trujillonan 04/10/2018 1 [place] [id number] Kori Trujillonan [id number] Kori Kent Notes Date Note Type Note Provider Name and Address Organization Details Recorded Time 12/08/2017 text/html Kori is here following up for her left shoulder. She has been doing physical therapy and is doing well today. Julio César Turpin MD [address] [place], [address], [facility] [place] [facility] 12/08/2017 21:23:09 01/19/2018 text/html Kori is here t [facility] for follow-up for her left shoulder. She states her left shoulder is doing very well. She states she is now having increased pain in her right shoulder with no known injury. Julio César Turpin MD [address] [place], [address], [facility] 01/19/2018 19:27:05 02/16/2018 text/html Kori is here f or a follow up on her left shoulder. She states she has pain sometimes and at the last visit she had an injection in the right shoulder but states it is still hurting. She also describes persistent stiffness. She does not describe any numbness or tingling. Julio César Turpin MD [address] [place], [address], [facility] 02/16/2018 18:27:15 03/04/2018 text/html Kori is here t [place] for her left shoulder pain. She states that she is still having increased pain. She recently had a MRI and is here today for those results. {{She* He}} has had an MRI and we discussed it's findings. The MRI was consistent with {{relatively benign findings a complex tear of the medial meniscus a tear of the medial meniscus a tear of the lateral meniscus a chondral injury patellar malalignment mostly degenerative changes, worse in the medial compartment mostly degenerative changes worse in the patellofemoral compartment impingem ent and AC joint arthrosis* a focal rotator cuff tear and AC joint arthrosis a tear of the supraspinatus tendon and bony impingement a large rotator cuff tear and AC joint arthrosis a retracted tear of the rotator cuff a high grade partial tear of the rotator cuff and bony impingement a severe rotator cuff arthropathy a labral tear a Type II SLAP tear with biceps instability glenohum eral joint OA and loose bodies a greater tuberosity fracture without a definite rotator cuff tear}}. She continues to complain of some stiffness in the shoulder as well. Julio César Turpin MD [address] [place], [address], [facility] 03/04/2018 18:33:05 04/10/2018 text/html Kori is here f or her post op appointment for her right shoulder. She is doing good. Julio César Turpin MD [address] [place], [address], [facility] [place] [facility] 04/10/2018 19:47:03 OBGyn Episode No OBEpisode recorded.
--- OUTSIDE RECORDS SUMMARY | 2024-06-22 08:22 | XMS_ITS ---
Author Organization [facility] [employer] Address [address] [place] [address] Care Team Providers Care Clothing Designer Name Role Phone Theron Gamez DO Primary Care Provider Elizabeth Raygoza Unavailable [phone] Allergies No Known Allergies Results Component Value Reference Range Notes UDT Reviewed date:06/04/2024 03:38:08 PM Interpretation: Performing Lab: Notes/Report: THC NEG 0 - 50 ng/ml Cocaine NEG 0 - 300 ng/ml Amphetamine POS 0 - 1000 ng/ml Buprenorphine (BUP) NEG 0 - 10 ng/ml Secobarbital (Bar) NEG 0 - 300 ng/ml Oxazepam (BZO) NEG 0 - 300 ng/ml 2-srzttmdfhx-7,2-wlbrjgcs-6,3-diphenylpyrrolidine (MARIA ANTONIA P) NEG 0 - 300 ng/ml Methamphetamine (MET) NEG 0 - 1000 ng/ml Methylenedioxymethamphetamine (MDMA) NEG 0 - 500 ng/ml Morphine (MOP 300/[id number]) NEG 0 - 300 ng/ml Methadone (MTD) NEG 0 - 300 ng/ml Phencyclidine (PCP) NEG 0 - 25 ng/ml Propoxyphene (PPX) NEG 0 - 300 ng/ml Nortriptyline (TCA) NEG 0 - 1000 ng/ml Oxycodone NEG 0 - 300 ng/ml REASON FOR VISIT f/u rx Medications Medication SIG (Take, Route, Frequency, Duration) Notes Start Date End Date Status Amphetamine-Dextroamphet ER 20 MG 1 capsule in the morning Orally Once a day for 30 days 06/04/2024 Active ProAir HFA 108 (90 Base) MCG/ACT Inhalation 09/16/2023 Active Levothyroxine Sodium 100 MCG Oral 09/16/2023 Active Sertraline HCl 100 MG 2 tablets Oral Onc e a day for 90 days Active Amphetamine-Dextroamphetamin e 10 MG 1 tablet Orally at noon for 30 days 06/04/2024 Active busPIRone HCl 10 MG 1 tablet Oral Twice a day for 90 days Active Sertraline HCl 100 MG 1 tablet Oral Once a day for 90 days Active Propranolol HCl 10 MG 1 tablet Oral once a day for 90 days Active Vraylar 3 mg take one capsule horacio ly Oral daily for 90 days Active Social History Tobacco Use: Social History Observation Description Date Details (start date - stop date) Never Smoker NA - NA Sex Assigned At : Social History Observation Description Sex Assigned At Female Tobacco Control (Standard) Question Answer Notes Tobacco use: Nonsmoker Vital Signs Blood pressure systolic 142 mm Hg 06/04/19 25 Blood pressure diastolic 85 mm Hg 025 Heart Rate 109 /min 06/04/2024 Height 62.00 in 06/04/2024 Weight 199 lbs 06/04/2024 BMI 36.39 kg/m2 06/04/2024 Height-cm 157.48 cm 06/04/2024 Weight-kg 90.27 kg 06/04/2024 Encounters Encounter Location Date Provider Diagnosis [facility] [place] [address] [address] 06/04/2024 Elizabeth Ngo Bipolar disorder, current episode depressed, mild F31.31 ; Generalized anxiety disorder F41.1 ; Attention-deficit hyperactivity disorder, combined type F90.2 ; Post-traumatic stress disorder, chronic F43.12 and Other director long term care (current) drug therapy Z79.899 Assessments Encounter Date Diagnosis (ICD Code) Assessment Notes Treatment Notes Treatment Clinical Notes Section Notes 06/04/2024 Bipolar disorder, current episode depressed, mild (ICD-10 - F31.31) Learning About Mood Disorders material was published, Learning About How to Get Help During a Mental Health Crisis material was published, Bipolar Disorder: Care Instructions material was published, Learning About Movement Disorders From Antipsychotic Medicines material was published 1. depressed bipolar I disorder - stable Vraylar 3 mg in am for depression - educated on rx labs obtain completed 05/22 educated on all medications, benefits, side effects and risk, and educated on depression, anxiety, and ADHD, mood d/o and educated on compliance of medications, metabolic and movement d/o education appointment's, continue therapy discussion with patient about course of treatmentand patient instructions. Second generation antipsychotics (SGAs) have metabolic syndrome issues with weight gain, increase in prolactin, increased waist circumference, increased lipids, and increased glucose. Thus routine monitoring of weight, metabolic labs, etc. is indicated. A general rank ordering of antipsychotics that have the greatest to the least risk of metabolic effects is olanzapine, quetiapine, risperidone, ziprasidone, and aripiprazole. However, weight gain can occur with all of these drugs and considerable variability exists among patients receiving the same drug regarding the risk of metabolic effects. Anti-psychotic agents not only increase the risk of metabolic disorder, they also increase the risk of CVA, akathisia, and movement disorders including EPS or tardive dyskinesia (more common with first generation antipsychotics) and more. 2. Generalized anxiety disorder - Buspar 10 mg three times a day Propranolol 10 mg twice a day Sertraline 200 mg daily SSRI side effects discussed including but not limited to, gastric upset, nausea, vomiting, diarrhea and/or constipation, weight changes, sexual side effects including loss of libido, increased suicidal thoughts/behaviors in children and young adults, and serotonin syndrome.F41.1: Generalized anxiety disorder 3. Attention deficit hyperactivity disorder, combined type -Reviewed [place]-2 testing results ADDERALL XR 20 mg in am Adderall 10 mg at noon discussed medications no early refills on control substance limit caffeineeducation on all medicationstake after excise Educated patient unable to switch pharmacy or switch dosing for control substance once sent to pharmacy related to shortages or other reasons ADHD stimulates education Discuss with patient risk of misuse, abuse, and addiction before prescribing stimulant medicines. Music Therapy Specialist patients not to share their prescribed stimulant with anyone else. Educate patients and their families on these serious risks, proper storage of the medicine, and proper disposal of any unused medicine. Educated patient will monitor Throughout treatment, regularly assess and monitor them for signs and symptoms of nonmedical use, addiction, and potential diversion, which may be evidenced by more frequent renewal. requests than warranted by the prescribed dosage. Educated patient unable to switch pharmacy or switch dosing for control substance once sent to pharmacy related to shortages or other reasons [place] prescription program reviewed Random UDS 4. Chronic post-traumatic stress disorder -therapy 5. Long-term drug therapy 06/04/2024 Generalized anxiety disorder (ICD-10 - F41.1) Learning About Generalized Anxiety Disorder material was published, Generalized Anxiety Disorder: Care Instructions material was published, Learning About Anxiety Disorders material was published 1. depressed bipolar I disorder - stable Vraylar 3 mg in am for depression - educated on rx labs obtain completed 05/22 educated on all medications, benefits, side effects and risk, and educated on depression, anxiety, and ADHD, mood d/o and educated on compliance of medications, metabolic and movement d/o education appointment's, continue therapy discussion with patient about course of treatmentand patient instructions. Second generation antipsychotics (SGAs) have metabolic syndrome issues with weight gain, increase in prolactin, increased waist circumference, increased lipids, and increased glucose. Thus routine monitoring of weight, metabolic labs, etc. is indicated. A general rank ordering of antipsychotics that have the greatest to the least risk of metabolic effects is olanzapine, quetiapine, risperidone, ziprasidone, and aripiprazole. However, weight gain can occur with all of these drugs and considerable variability exists among patients receiving the same drug regarding the risk of metabolic effects. Anti-psychotic agents not only increase the risk of metabolic disorder, they also increase the risk of CVA, akathisia, and movement disorders including EPS or tardive dyskinesia (more common with first generation antipsychotics) and more. 2. Generalized anxiety disorder - Buspar 10 mg three times a day Propranolol 10 mg twice a day Sertraline 200 mg daily SSRI side effects discussed including but not limited to, gastric upset, nausea, vomiting, diarrhea and/or constipation, weight changes, sexual side effects including loss of libido, increased suicidal thoughts/behaviors in children and young adults, and serotonin syndrome.F41.1: Generalized anxiety disorder 3. Attention deficit hyperactivity disorder, combined type -Reviewed [place]-2 testing results ADDERALL XR 20 mg in am Adderall 10 mg at noon discussed medications no early refills on control substance limit caffeineeducation on all medicationstake after excise Educated patient unable to switch pharmacy or switch dosing for control substance once sent to pharmacy related to shortages or other reasons ADHD stimulates education Discuss with patient risk of misuse, abuse, and addiction before prescribing stimulant medicines. Music Therapy Specialist patients not to share their prescribed stimulant with anyone else. Educate patients and their families on these serious risks, proper storage of the medicine, and proper disposal of any unused medicine. Educated patient will monitor Throughout treatment, regularly assess and monitor them for signs and symptoms of nonmedical use, addiction, and potential diversion, which may be evidenced by more frequent renewal. requests than warranted by the prescribed dosage. Educated patient unable to switch pharmacy or switch dosing for control substance once sent to pharmacy related to shortages or other reasons [place] prescription program reviewed Random UDS 4. Chronic post-traumatic stress disorder -therapy 5. Long-term drug therapy 06/04/2024 Attention-defici t hyperactivity disorder, combined type (ICD-10 - F90.2) Learning About Attention Deficit Hyperactivity Disorder (ADHD) in Adults material was published, Attention Deficit Hyperactivity Disorder (ADHD) in Adults: Care Instructions material was published, Learning About Stimulant Medicines for Attention Deficit Hyperactivity Disorder (ADHD) material was published 1. depressed bipolar I disorder - stable Vraylar 3 mg in am for depression - educated on rx labs obtain completed 05/22 educated on all medications, benefits, side effects and risk, and educated on depression, anxiety, and ADHD, mood d/o and educated on compliance of medications, metabolic and movement d/o education appointment's, continue therapy discussion with patient about course of treatmentand patient instructions. Second generation antipsychotics (SGAs) have metabolic syndrome issues with weight gain, increase in prolactin, increased waist circumference, increased lipids, and increased glucose. Thus routine monitoring of weight, metabolic labs, etc. is indicated. A general rank ordering of antipsychotics that have the greatest to the least risk of metabolic effects is olanzapine, quetiapine, risperidone, ziprasidone, and aripiprazole. However, weight gain can occur with all of these drugs and considerable variability exists among patients receiving the same drug regarding the risk of metabolic effects. Anti-psychotic agents not only increase the risk of metabolic disorder, they also increase the risk of CVA, akathisia, and movement disorders including EPS or tardive dyskinesia (more common with first generation antipsychotics) and more. 2. Generalized anxiety disorder - Buspar 10 mg three times a day Propranolol 10 mg twice a day Sertraline 200 mg daily SSRI side effects discussed including but not limited to, gastric upset, nausea, vomiting, diarrhea and/or constipation, weight changes, sexual side effects including loss of libido, increased suicidal thoughts/behaviors in children and young adults, and serotonin syndrome.F41.1: Generalized anxiety disorder 3. Attention deficit hyperactivity disorder, combined type -Reviewed [place]-2 testing results ADDERALL XR 20 mg in am Adderall 10 mg at noon discussed medications no early refills on control substance limit caffeineeducation on all medicationstake after excise Educated patient unable to switch pharmacy or switch dosing for control substance once sent to pharmacy related to shortages or other reasons ADHD stimulates education Discuss with patient risk of misuse, abuse, and addiction before prescribing stimulant medicines. Music Therapy Specialist patients not to share their prescribed stimulant with anyone else. Educate patients and their families on these serious risks, proper storage of the medicine, and proper disposal of any unused medicine. Educated patient will monitor Throughout treatment, regularly assess and monitor them for signs and symptoms of nonmedical use, addiction, and potential diversion, which may be evidenced by more frequent renewal. requests than warranted by the prescribed dosage. Educated patient unable to switch pharmacy or switch dosing for control substance once sent to pharmacy related to shortages or other reasons [place] prescription program reviewed Random UDS 4. Chronic post-traumatic stress disorder -therapy 5. Long-term drug therapy 06/04/2024 Post-traumatic stress disorder, chronic (ICD-10 - F43.12) Post-Traumatic Stress Disorder (PTSD): Care Instructions material was published 1. depressed bipolar I disorder - stable Vraylar 3 mg in am for depression - educated on rx labs obtain completed 05/22 educated on all medications, benefits, side effects and risk, and educated on depression, anxiety, and ADHD, mood d/o and educated on compliance of medications, metabolic and movement d/o education appointment's, continue therapy discussion with patient about course of treatmentand patient instructions. Second generation antipsychotics (SGAs) have metabolic syndrome issues with weight gain, increase in prolactin, increased waist circumference, increased lipids, and increased glucose. Thus routine monitoring of weight, metabolic labs, etc. is indicated. A general rank ordering of antipsychotics that have the greatest to the least risk of metabolic effects is olanzapine, quetiapine, risperidone, ziprasidone, and aripiprazole. However, weight gain can occur with all of these drugs and considerable variability exists among patients receiving the same drug regarding the risk of metabolic effects. Anti-psychotic agents not only increase the risk of metabolic disorder, they also increase the risk of CVA, akathisia, and movement disorders including EPS or tardive dyskinesia (more common with first generation antipsychotics) and more. 2. Generalized anxiety disorder - Buspar 10 mg three times a day Propranolol 10 mg twice a day Sertraline 200 mg daily SSRI side effects discussed including but not limited to, gastric upset, nausea, vomiting, diarrhea and/or constipation, weight changes, sexual side effects including loss of libido, increased suicidal thoughts/behaviors in children and young adults, and serotonin syndrome.F41.1: Generalized anxiety disorder 3. Attention deficit hyperactivity disorder, combined type -Reviewed [place]-2 testing results ADDERALL XR 20 mg in am Adderall 10 mg at noon discussed medications no early refills on control substance limit caffeineeducation on all medicationstake after excise Educated patient unable to switch pharmacy or switch dosing for control substance once sent to pharmacy related to shortages or other reasons ADHD stimulates education Discuss with patient risk of misuse, abuse, and addiction before prescribing stimulant medicines. Music Therapy Specialist patients not to share their prescribed stimulant with anyone else. Educate patients and their families on these serious risks, proper storage of the medicine, and proper disposal of any unused medicine. Educated patient will monitor Throughout treatment, regularly assess and monitor them for signs and symptoms of nonmedical use, addiction, and potential diversion, which may be evidenced by more frequent renewal. requests than warranted by the prescribed dosage. Educated patient unable to switch pharmacy or switch dosing for control substance once sent to pharmacy related to shortages or other reasons [place] prescription program reviewed Random UDS 4. Chronic post-traumatic stress disorder -therapy 5. Long-term drug therapy 06/04/2024 Other penitentiary (current) drug therapy (ICD-10 - Z79.899) Medication Refill: Care Instructions material was published 1. depressed bipolar I disorder - stable Vraylar 3 mg in am for depression - educated on rx labs obtain completed 05/22 educated on all medications, benefits, side effects and risk, and educated on depression, anxiety, and ADHD, mood d/o and educated on compliance of medications, metabolic and movement d/o education appointment's, continue therapy discussion with patient about course of treatmentand patient instructions. Second generation antipsychotics (SGAs) have metabolic syndrome issues with weight gain, increase in prolactin, increased waist circumference, increased lipids, and increased glucose. Thus routine monitoring of weight, metabolic labs, etc. is indicated. A general rank ordering of antipsychotics that have the greatest to the least risk of metabolic effects is olanzapine, quetiapine, risperidone, ziprasidone, and aripiprazole. However, weight gain can occur with all of these drugs and considerable variability exists among patients receiving the same drug regarding the risk of metabolic effects. Anti-psychotic agents not only increase the risk of metabolic disorder, they also increase the risk of CVA, akathisia, and movement disorders including EPS or tardive dyskinesia (more common with first generation antipsychotics) and more. 2. Generalized anxiety disorder - Buspar 10 mg three times a day Propranolol 10 mg twice a day Sertraline 200 mg daily SSRI side effects discussed including but not limited to, gastric upset, nausea, vomiting, diarrhea and/or constipation, weight changes, sexual side effects including loss of libido, increased suicidal thoughts/behaviors in children and young adults, and serotonin syndrome.F41.1: Generalized anxiety disorder 3. Attention deficit hyperactivity disorder, combined type -Reviewed [place]-2 testing results ADDERALL XR 20 mg in am Adderall 10 mg at noon discussed medications no early refills on control substance limit caffeineeducation on all medicationstake after excise Educated patient unable to switch pharmacy or switch dosing for control substance once sent to pharmacy related to shortages or other reasons ADHD stimulates education Discuss with patient risk of misuse, abuse, and addiction before prescribing stimulant medicines. Music Therapy Specialist patients not to share their prescribed stimulant with anyone else. Educate patients and their families on these serious risks, proper storage of the medicine, and proper disposal of any unused medicine. Educated patient will monitor Throughout treatment, regularly assess and monitor them for signs and symptoms of nonmedical use, addiction, and potential diversion, which may be evidenced by more frequent renewal. requests than warranted by the prescribed dosage. Educated patient unable to switch pharmacy or switch dosing for control substance once sent to pharmacy related to shortages or other reasons [place] prescription program reviewed Random UDS 4. Chronic post-traumatic stress disorder -therapy 5. Long-term drug therapy Plan Of Treatment Medication Medication Name Sig Start Date Stop Date Notes Amphetamine-Dextroamphet ER 20 MG 1 capsule in the morning Orally Once a day for 30 days 06/04/2024 Amphetamine-Dextroamphetamin e 10 MG 1 tablet Orally at noon for 30 days 06/04/2024 busPIRone HCl 10 MG 1 tablet Oral Twice a day for 90 days Sertraline HCl 100 MG 1 tablet Oral Once a day for 90 days Propranolol HCl 10 MG 1 tablet Oral once a day for 90 days Vraylar 3 mg take one capsule horacio ly Oral daily for 90 days Treatment Notes Assessment Notes Bipolar disorder, current ep isode depressed, mild Learning About Mood Disorders material w as published, Learning About How to Get Help During a Mental Health Crisis material was published, Bipolar Disorder: Care Instructions material was published, Learning About Movement Disorders From Antipsychotic Medicines material was published Generalized anxiety disorder Learning Ab out Generalized Anxiety Disorder material was published, Generalized Anxiety Disorder: Care Instructions material was published, Learning About Anxiety Disorders material was published Attention-deficit hyperactiv ity disorder, combined type Learning About Attention Deficit Hyperactivity Disorder (ADHD) in Adults material was published, Attention Deficit Hyperactivity Disorder (ADHD) in Adults: Care Instructions material was published, Learning About Stimulant Medicines for Attention Deficit Hyperactivity Disorder (ADHD) material was published Post-traumatic stress disorder, chronic Post-Traumatic Stress Disorder (PTSD): Care Instructions material was published Other director long term care (current) drug therapy M edication Refill: Care Instructions material was published Next Appt Details Follow Up: 6 Months, Reason: f/u medications Provider Name:Elizabeth Ngo , 11/19/2024 08:45:00 AM, [facility], [facility] [address], [place], [address], Progress Notes * KOKO MULTANIDOB:1965 (58 yo F)Acc No.[id number]:06/04/2024 Patient: KOKO HAY Provider: Kari NGO PMHNP :1965 A ge:58 Y S ex:Female Date:06/04/2024 Address:[address] [place] [address] [facility] Pcp:Theron Gamez DO Subjective: * Chief Complaints: * 1 . F/u rx. * HPI: H istory of Presenting Problem: Follow up Bipolar depression, anxiety, and sleep issues, chronic since last visit, been doing well,? I feel depression and anxiety been stable not feeling sad or down no hopeless or helpless, and anxiety not more than normal in this world we live in now, sleep pretty well,?sleep a verage 7-8 hours, appetite fine and weight same. no mayuri and no hypomania, and concentration and focus ok, no nightmare or flashbacks, energy ok, I have been trying to get out and do things, and no hopeless and no helpless, no mayuri, no psychosis, no SI/HI, have long time abnormal tremors in hand and FH, no involuntary abnormal movement d/o reported or noted, medications all doing well, no s/e Denies SI/HI no plans or intent, no thoughts harm to self or others, no past attempts, had a plan couple years ago OD did not proceed no hospitalization, FH dad completion gun shot Dad Bipolar, mom alcoholic ETOH occasional smoking none drugs denies labs none rx hx HX Eclectic (tremors) Abilify, Gabapentin, Propranolol, Latuda, Lexapro, Zoloft, Wellbutrin, Cymbalta, Buspar, Vraylar,. D epression Screening: JERRY-7 (2018 Edition) F eeling nervous, anxious, or on edge?More than half the days, N ot being able to stop or control worrying S everal days,?Worrying too much about different things S everal days, T rouble relaxing N ot at all, Being so restless that it is hard to sit still N ot at all, B ecoming easily annoyed or irritable S everal days, F eeling afraid as if something awful might happen S everal days, T otal JERRY-7 Score 6 , I f you checked any problems, how difficult have they made it for you to do your work, take care of things at home, or get along with other people? N ot difficult at all, I nterpretation of Total ( 5 to 9) Mild. [place]-Suicide Severity Rating Scale: Suicide Risk (CSRS-screener) i n the past one month Have you wished you were or wished you could go to sleep and not wake up? N o, i n the past one month Have you actually had any thoughts of killing yourself? N o, H ave you ever done anything, started to do anything, or prepared to do anything to end your life? Y es. D epression screening: PHQ-9 L ittle interest or pleasure in doing things S everal days, F eeling down, depressed, or hopeless S everal days, T rouble falling or staying asleep, or sleeping too much N ot at all, F eeling tired or having little energy S everal days, P oor appetite or overeating M ore than half the days, F eeling bad about yourself or that you are a failure, or have let yourself or your family down N ot at all, T rouble concentrating on things, such as reading the newspaper or watching television M ore than half the days, M oving or speaking so slowly that other people could have noticed; or the opposite, being so fidgety or restless that you have been moving around a lot more than usual N ot at all, T houghts that you would be better off or of hurting yourself in some way N ot at all. I ntervention D epression Screening Findings P ositve, F ollow-Up for Depression?Mental health treatment assessment, Patient follow-up to return when and if necessary, S uicide Risk Assessment Performed , A dditional Evaluation for Depression P sychiatric interview and evaluation, N javy of the standardized tool used for adult depression screening: Haley sevilla Health Questionnaire (PHQ-9). * ROS: Haley sevilla reports no weight gain (___lbs) weight stable but reports no fever and no significant weight loss. Ears:: v ertigo hx- improved . She reports G ERD no abdominal pain, no nausea, no vomiting, no constipation, normal appetite, no diarrhea, She reports a rthralgias/joint pain. no back or neck pain, steady gait She reports no headaches (improved). She reports no depression and anxiety b ut reports no sleep disturbances, feeling safe in a relationship, no alcohol abuse, no hallucinations, no suicidal thoughts, no mood swings, no memory loss, no agitation, S he reports wears glasses/contact lenses. She reports no chest pain,, no shortness of breath no palpitations, no known heart murmur, and no ankle swelling. She reports little cough and reported flu last week She reports no incontinence, no difficulty urinating,, and no increased frequency. She reports no fatigue. * Medical History: Haley browne: Attention deficit hyperactivity disorder, Attention deficit hyperactivity disorder, combined type, Bipolar affective disorder, currently depressed, moderate, Chronic post-traumatic stress disorder, Generalized anxiety disorder, History of SARS-CoV-2, Insomnia disorder related to another mental disorder, Long-term drug therapy, Mild depressed bipolar I disorder, Moderate recurrent major depression, ,. * Social History: T obacco Use: T obacco Control (Standard) T obacco use: N onsmoker. M igrated Social History: M igrated Social History: Alcohol Intake: Occasional 05/11/2020,Tobacco Years: Never smoker 02/29/2020. M iscellaneous: A dvance Care Planning A re you your own decision-maker Y es, D o you have Power of Boiling House Oiler for Health or Medical? N o. * Medications: T aking Levothyroxine Sodium 100 MCG Tablet Oral , Taking ProAir HFA 108 (90 Base) MCG/ACT Aerosol Solution Inhalation , Taking Vraylar 3 mg Capsule take one capsule daily Oral daily , Taking Propranolol HCl 10 MG Tablet 1 tablet Oral once a day , Taking busPIRone HCl 10 MG Tablet 1 tablet Oral Twice a day , stop date 06/14/2024, Taking Amphetamine-Dextroamphetamine 10 MG Tablet 1 tablet Orally at noon , Taking Amphetamine-Dextroamphet ER 20 MG Capsule Extended Release 24 Hour 1 capsule in the morning Orally Once a day , Taking Sertraline HCl 100 MG Tablet 2 tablets Oral Once a day , Medication List reviewed and reconciled with the patient * Allergies: N .K.D.A. Objective: * Vitals: B P:142/85mm Hg, HR:109/min, Wt:199lbs, Wt-k.27 kg, Ht: 62.00 in, Ht-cm: 157.48 cm, BMI:36.39Index, Body Surface Area: 1.99. * Examination: P sychiatry: Appearance: w ell-groomed, appears stated age, well-nourished. Abnormal body movements: n one. Affect / mood: a ppropriate, full range. Aggression: l ow. Anger control: g ood. Attention: g ood, normal in conversation. Attitude: c ooperative. Homicidal ideation: n one. Suicidal ideation: n one. Memory status: n o impairment noted. Degree of awareness of surroundings: w ithin normal limits.? Delusions: n o. Hallucinations: n o. Impulse control: g ood. Insight: g ood. Intellectual functioning: a verage. Comprehension - Intellectual function: a verage. Judgement: g ood. Orientation: a wake, alert and oriented x 3. Perceptual disorders: n o perceptual disorder noted. Psychomotor activity: w ithin normal range. Speech / language: c lear and coherent, normal rate, volume, and articulation (RVR), appropriate pitch/modulation, proper grammar used. Thought content: a ppropriate. Thought process: i ntact. Assessment: * Assessment: 1. B ipolar disorder, current episode depressed, mild - F31.31 (Primary) 2 .?Generalized anxiety disorder - F41.1 3 . A ttention-deficit hyperactivity disorder, combined type - F90.2 4 . P ost-traumatic stress disorder, chronic - F43.12 5 . O ther director long term care (current) drug therapy - Z79.899 1. depressed bipolar I disorder - stable Vraylar 3 mg in am for depression - educated on rx labs obtain completed 05/22 educated on all medications, benefits, side effects and risk, and educated on depression, anxiety, and ADHD, mood d/o and educated on compliance of medications, metabolic and movement d/o education appointment's, continue therapy discussion with patient about course of treatmentand patient instructions. Second generation antipsychotics (SGAs) have metabolic syndrome issues with weight gain, increase in prolactin, increased waist circumference, increased lipids, and increased glucose. Thus routine monitoring of weight, metabolic labs, etc. is indicated. A general rank ordering of antipsychotics that have the greatest to the least risk of metabolic effects is olanzapine, quetiapine, risperidone, ziprasidone, and aripiprazole. However, weight gain can occur with all of these drugs and considerable variability exists among patients receiving the same drug regarding the risk of metabolic effects. Anti-psychotic agents not only increase the risk of metabolic disorder, they also increase the risk of CVA, akathisia, and movement disorders including EPS or tardive dyskinesia (more common with first generation antipsychotics) and more. 2. Generalized anxiety disorder - Buspar 10 mg three times a day Propranolol 10 mg twice a day Sertraline 200 mg daily SSRI side effects discussed including but not limited to, gastric upset, nausea, vomiting, diarrhea and/or constipation, weight changes, sexual side effects including loss of libido, increased suicidal thoughts/behaviors in children and young adults, and serotonin syndrome.F41.1: Generalized anxiety disorder 3. Attention deficit hyperactivity disorder, combined type -Reviewed [place]-2 testing results ADDERALL XR 20 mg in am Adderall 10 mg at noon discussed medications no early refills on control substance limit caffeineeducation on all medicationstake after excise Educated patient unable to switch pharmacy or switch dosing for control substance once sent to pharmacy related to shortages or other reasons ADHD stimulates education Discuss with patient risk of misuse, abuse, and addiction before prescribing stimulant medicines. Music Therapy Specialist patients not to share their prescribed stimulant with anyone else. Educate patients and their families on these serious risks, proper storage of the medicine, and proper disposal of any unused medicine. Educated patient will monitor Throughout treatment, regularly assess and monitor them for signs and symptoms of nonmedical use, addiction, and potential diversion, which may be evidenced by more frequent renewal. requests than warranted by the prescribed dosage. Educated patient unable to switch pharmacy or switch dosing for control substance once sent to pharmacy related to shortages or other reasons [place] prescription program reviewed Random UDS 4. Chronic post-traumatic stress disorder -therapy 5. Long-term drug therapy Plan: * Treatment: 2. G eneralized anxiety disorder Refill Sertraline HCl Tablet, 100 MG, 1 tablet, Oral, Once a day, 90 days, 90 Tablet, Refills 1;?Refill Propranolol HCl Tablet, 10 MG, 1 tablet, Oral, once a day, 90 days, 90 Tablet, Refills 1; Refill busPIRone HCl Tablet, 10 MG, 1 tablet, Oral, Twice a day, 90 days, 180 Tablet, Refills 1. Notes: Learning About Generalized Anxiety Disorder material was published, Generalized Anxiety Disorder: Care Instructions material was published, Learning About Anxiety Disorders material was published 3. A ttention-deficit hyperactivity disorder, combined type Refill Amphetamine-Dextroamphet ER Capsule Extended Release 24 Hour, 20 MG, 1 capsule in the morning, Orally, Once a day, 30 days, 30, Refills 0; R efill Amphetamine-Dextroamphetamine Tablet, 10 MG, 1 tablet, Orally, at noon, 30 days, 30 Tablet, Refills 0. Notes: Learning About Attention Deficit Hyperactivity Disorder (ADHD) in Adults material was published, Attention Deficit Hyperactivity Disorder (ADHD) in Adults: Care Instructions material was published, Learning About Stimulant Medicines for Attention Deficit Hyperactivity Disorder (ADHD) material was published 4. P ost-traumatic stress disorder, chronic Notes: Post-Traumatic Stress Disorder (PTSD): Care Instructions material was published 5. O [facility] (current) drug therapy Notes: Medication Refill: Care Instructions material was published * Labs: * L ab: UDT (Collection Date & Time - 06/04/2024) Value Reference Range T HC NEG 0 - 50 ng/ml * C ocaine NEG 0 - 300 ng/ml * A mphetamine POS 0 - 1000 ng/ml * B uprenorphine (BUP) NEG 0 - 10 ng/ml * S ecobarbital (Bar) NEG 0 - 300 ng/ml * O xazepam (BZO) NEG 0 - 300 ng/ml * 2 -ethylidene-1,8-yvrptefh-5,3-diphenylpyrrolidine (EDDP) NEG 0 - 300 ng/ml * M ethamphetamine (MET) NEG 0 - 1000 ng/ml * M ethylenedioxymethamphetamine (MDMA) NEG 0 - 500 ng/ml * M orphine (MOP 300/UGY1511) NEG 0 - 300 ng/ml * M ethadone (MTD) NEG 0 - 300 ng/ml * P hencyclidine (PCP) NEG 0 - 25 ng/ml * P ropoxyphene (PPX) NEG 0 - 300 ng/ml * N ortriptyline (TCA) NEG 0 - 1000 ng/ml * O xycodone NEG 0 - 300 ng/ml * Procedure Codes: 8 0306 DRUG TST PRSMV READ INSTRMNT ASSTD DIR OPT OBS, 28285 BEHAV ASSMT W/SCORE & DOCD/STAND INSTRUMENT, G8950 PREHTN/HTN BP DOC INDCD F/U DOC, 48413 BEHAV ASSMT W/SCORE & DOCD/STAND INSTRUMENT, G8753 MOST RECENT SYSTOLIC BP >= 140MM HG, G2211 VISIT COMPLEXITY INHERENT TO ONGOING CARE RELATED TO A PATIENT'S SINGLE, SERIOUS CONDITION OR A COMPLEX CONDITION * Preventive Medicine: Counseling: B P Management: F IRST HYPERTENSIVE BP READING FOLLOW-UP PLAN: F ollow-up 1 month Follow up with your PCP, Quintin OCASIO RECOMMENDATION: Quintin ocasio education, REFERRAL TO ALTERNATIVE / PRIMARY CARE PROVIDER: R eferral to general medical service Recommended Nonpharmacologic Interventions (Lifestyle Modifications) - Weight ReductionA heart-healthy diet , such as Dietary Approaches to Stop Hypertension (DASH) Eating PlanDietary Sodium RestrictionIncreased Physical ActivityModeration in alcohol consumption, W EIGHT REDUCTION RECOMMENDATION: educated on healthy b/p 120/80monitor b/p at homerefer to PCP, Urgent care/ERheart healthy diet and exciselimit salt intakelimit soda intake and caffieneincrease water. * Follow Up: 6 Months (Reason: f/u medications) * Billing Information: * Visit Code: 09739 OFFICE OUTPATIENT VISIT 25 MINUTES DETAILED HISTORY AND EXAM/MODERATE MEDICAL DECISION MAKING. * Procedure Codes: 92053 DRUG TST PRSMV READ INSTRMNT ASSTD DIR OPT OBS. 27107 BEHAV ASSMT W/SCORE & DOCD/STAND INSTRUMENT. G8950 PREHTN/HTN BP DOC INDCD F/U DOC. 84275 BEHAV ASSMT W/SCORE & DOCD/STAND INSTRUMENT. G8753 MOST RECENT SYSTOLIC BP >= 140MM HG. G2211 VISIT COMPLEXITY INHERENT TO ONGOING CARE RELATED TO A PATIENT'S SINGLE, SERIOUS CONDITION OR A COMPLEX CONDITION. * ER LAY OUT SPECIALIST Sign off status: Completed true * Provider: LETY MOSCOSOP Date: 06/04/2024 Generated for Tammie marks/Shreya/Deanitting on: 06/22/2024 08:21 AM MASTER LAY OUT SPECIALIST History and Physical Notes * HPI (History of Present Illness) Category Sub-Category Detail Notes Category Not es History of Presenting Problem Follow up Bipolar depression, anxiety, and sleep issues, chronic since last visit, been doing well, I feel depression and anxiety been stable not feeling sad or down no hopeless or helpless, and anxiety not more than normal in this world we live in now, sleep pretty well, sleep average 7-8 hours, appetite fine and weight same. no mayuri and no hypomania, and concentration and focus ok, no nightmare or flashbacks, energy ok, I have been trying to get out and do things, and no hopeless and no helpless, no mayuri, no psychosis, no SI/HI, have long time abnormal tremors in hand and FH, no involuntary abnormal movement d/o reported or noted, medications all doing well, no s/e Denies SI/HI no plans or intent, no thoughts harm to self or others, no past attempts, had a plan couple years ago OD did not proceed no hospitalization, FH dad completion gun shot Dad Bipolar, mom alcoholic ETOH occasional smoking none drugs denies labs none rx hx HX Eclectic (tremors) Abilify, Gabapentin, Propranolol, Latuda, Lexapro, Zoloft, Wellbutrin, Cymbalta, Buspar, Vraylar, Depression screening PHQ-9 Little interest or pleasure in doing things: Several days Feeling down, depressed, or hopeless: Se veral days Trouble falling or staying asleep, or sl eeping too much: Not at all Feeling tired or having little energy: S everal days Poor appetite or overeating: More than h amarilis the days Feeling bad about yourself o r that you are a failure, or have let yourself or your family down: Not at all Trouble concentrating on thi ngs, such as reading the newspaper or watching television: More than half the days Moving or speaking so slowly that other people could have noticed; or the opposite, being so fidgety or restless that you have been moving around a lot more than usual: Not at all Thoughts that you would be b sophia off or of hurting yourself in some way: Not at all Intervention Depression Screening Findings: P ositve Follow-Up for Depression: [facility] treatment assessment, Patient follow-up to return when and if necessary Suicide Risk Assessment Performed: Additional Evaluation for De pression: Psychiatric interview and evaluation Name of the standardized too l used for adult depression screening:: Patient Health Questionnaire (PHQ-9) Depression Screening JERRY-7 (2018 Edition) Feelin g nervous, anxious, or on edge: More than half the days Not being able to stop or control worryi ng: Several days Worrying too much about different things : Several days Trouble relaxing: Not at all Being so restless that it is hard to sit still: Not at all Becoming easily annoyed or irritable: Se veral days Feeling afraid as if something awful tracy ht happen: Several days Total JERRY-7 Score: 6 If you checked any problems, how difficult have they made it for you to do your work, take care of things at home, or get along with other people?: Not difficult at all Interpretation of Total: (5 to 9) Mild [place]-Suicide Severity Rating Scale Suicide Risk (CSRS-screener) in the past one month Have you wished you were or wished you could go to sleep and not wake up?: No in the past one month Have y ou actually had any thoughts of killing yourself?: No Have you ever done anything, started to do anything, or prepared to do anything to end your life?: Yes Examination Category Sub-Category Detail Notes Category Not es Psychiatry Appearance: well-groomed, ap pears stated age, well-nourished Attitude: cooperative Psychomotor activity: within normal rang e Abnormal body movements: none Attention: good, normal in conv ersation Degree of awareness of surroundings: wit hin normal limits Orientation: awake, alert and jane ented x 3 Affect / mood: appropriate, full ra nge Speech / language: clear and coherent, normal rate, volume, and articulation (RVR), appropriate pitch/modulation, proper grammar used Insight: good Judgement: good Thought process: intact Thought content: appropriate Perceptual disorders: no perceptual diso rder noted Aggression: low Anger control: good Suicidal ideation: none Homicidal ideation: none Intellectual functioning: average Impulse control: good Memory status: no impairment noted Delusions: no Hallucinations: no Comprehension - Intellectual function: a verage
--- NOTE | 2024-06-22 12:57 | WPDPFTINT ---
PFT Procedure Performed PFT Procedure Performed Spirometry with Pre/Post Bronchodilator Plethysmography (Lung Vol) Diffusing Cap (DLCO) Flow Vol Loop PFT Interpretation Lung volumes were assessed using the body plethysmography method. The reduced expiratory reserve volume may be attributed to obesity. All other lung volumes appear normal. Spirometry results indicate normal expiratory flow rates and a normal FEV1/FVC ratio of 75%. There was no significant improvement in expiratory flow rates after bronchodilator administration. Lung diffusion capacity is normal at 88% of the predicted value. The pre-bronchodilator flow-volume loop suggests suboptimal effort, while the post-bronchodilator flow-volume loop is unremarkable. Impression: Spirometry, lung volumes, and lung diffusion capacity are all within normal limits.
== END 2024-06-22 08:09 | disposition home or self-care (01) ==
PROVIDERS: PCP Internal Medicine; Visit Provider Clinical Nurse Specialist
DX: J40 Bronchitis, not specified as acute or chronic (principal)
CPT/HCPCS: 94060; 94726; 94729